=== PATIENT | female | born 1995 | race Caucasian/White ===

== ENCOUNTER 2021-02-14 11:52 | Emergency (ER) | payer OTHER, SELFPAY ==
[2021-02-14 12:00] VITALS: BP 132/95; PULSE 110; RESP 14; TEMP 36.7; O2SAT 99
--- NOTE | 2021-02-14 12:15 | ED.URI ---
HPI - URI/Sore Throat General Chief Complaint: Upper Respiratory Infection Stated Complaint: sore throat Time Seen by Provider: 02/14/21 12:15 Source: patient Mode of arrival: ambulatory History of Present Illness HPI Narrative: Patient presents with sore throat. Patient states her left side of her throat is worse than her right. Patient states it feels like she is swallowing glass. Patient denies any drooling, no shortness of breath no chest pain. MD elicited complaint: sore throat Able to tolerate fluids by mouth: Yes Related Data Allergies Allergy/AdvReac Type Severity Reaction Status Date / Time No Known Allergies Allergy Verified 02/14/21 12:08 Review of Systems Review of Systems: CONSTITUTIONAL: Denies fever, chills, or sweats. EYES: Denies visual changes, redness, or discharge. ENT: Denies rhinorrhea, congestion, sore throat, or otalgia. CARDIOVASCULAR: Denies chest pain, palpitations, or edema. RESPIRATORY: Denies cough or dyspnea. GASTROINTESTINAL: Denies abdominal pain, nausea, vomiting, or diarrhea. GENITOURINARY: Denies dysuria or hematuria. SKIN: Denies rash or itching. MUSCULOSKELETAL: Denies back pain, joint pain, or myalgia. NEUROLOGIC: Denies headache, numbness, or weakness. PSYCHIATRIC: Denies anxiety or depression. PMFSH Comments At time of signature, agree with nursing past medical, surgical, social and family history. There is no relevant family history pertinent to the presenting complaint Exam Narrative: GENERAL: Well-appearing, well-nourished, and in no acute distress. HEAD: Normocephalic, atraumatic. EYES: PERRLA and EOMI. ENT: Nares clear, no rhinorrhea or epistaxis. Mucous membranes moist. Pharyngeal erythremia moderate to left side mild to right no exudate no trismus no drooling able to open mouth fully NECK: Supple. CHEST: Clear to auscultation. No respiratory distress. HEART: Regular rate and rhythm. No murmur heard. Normal peripheral pulses. ABDOMEN: Soft, nontender, nondistended, normal active bowel sounds. EXTREMITIES: Normal range of motion. No edema. SKIN: Warm, dry, no rash. NEURO: No focal deficits. Alert and oriented x3. Alderson Coma Scale Eye Opening: Spontaneous 4 Alderson Coma Scale Motor: Obeys Commands 6 Alderson Coma Scale Verbal: Oriented 5 Jennifer Coma Scale Total 15 Course Vital Signs Vital signs: Vital Signs Temperature 36.7 C 02/14/21 12:00 Pulse Rate 110 H 02/14/21 12:00 Respiratory Rate 14 02/14/21 12:00 Blood Pressure 132/95 H 02/14/21 12:00 Pulse Oximetry 99 02/14/21 12:00 Temperature 36.7 C 02/14/21 12:00 Pulse Rate 110 H 02/14/21 12:00 Respiratory Rate 14 02/14/21 12:00 Blood Pressure 132/95 H 02/14/21 12:00 Pulse Oximetry 99 02/14/21 12:00 Addressed elevated BP today. Today's blood pressure higher than recommended range. 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 Currently patient denies headache, dizziness, vision changes, CP or shortness of breath. MDM - URI/Sore Throat Differential Diagnosis Differential diagnosis: Likely upper respiratory infection, croup, otitis media, sinusitis, viral infection, bronchitis, influenza and pharyngitis Lab Data Labs: Strep Screen Presumptive Negative *(Reference Range: Negative)* Critical Care Time Critical Care Time Critical Care Time: No Discharge Plan Discharge Clinical Impression: Pharyngitis, Tonsillar erythema Patient Disposition: Home, Self-Care Condition: Stable Instructions: Antibiotic Form, Tonsillitis (ED) Additional Instructions: Increase fluids especially juices and water [id number] cough and cold medicine of your choice for your symptoms Salt water gargles, throat lozenges or throat sprays as desired change toothbrush in 3-5 days Antibiotic as directed--finished the medication It may take the antibiotic 2-3 days to c
== END 2021-02-14 12:24 | disposition home or self-care (01) ==
PROVIDERS: Emergency Provider Nurse Practitioner Family
DX: J02.9 Acute pharyngitis, unspecified (principal); J35.9 Chronic disease of tonsils and adenoids, unspecified
CPT/HCPCS: 87081; 87880; 99203; G0463

== ENCOUNTER 2021-12-15 20:47 | Inpatient (IN) | payer OTHER, SELFPAY ==
--- NOTE | ~2021-12-15 | CT_ITS ---
EXAMINATION: CT brain wo con INDICATION: Hallucinations COMPARISON: 11/13/2011 TECHNIQUE: Standard unenhanced head CT. The dose-length product (DLP) was 605.33 mGy-cm. The mA was a djusted according to patient size. Iterative reconstruction technique was employed. FINDINGS: There is no intracranial hemorrhage, acute infarction, or abnormal mass lesion. The ventric les are normal. There is no abnormal mass effect or midline shift. The valadez-white matter differentiat ion is normal. The basal cisterns are patent. The orbits are normal. The paranasal sinuses, mastoids and calvarium are normal. IMPRESSION: 1. No acute intracranial abnormality. Reviewed, dictated and finalized at location B.
--- NOTE | ~2021-12-15 | US_ITS ---
EXAMINATION: US abdomen limited DATE: 12/17/2021 09:00 INDICATION: Right upper quadrant pain TECHNIQUE: Multiple grayscale and Doppler ultrasound images of the abdomen were obtained. COMPARISON: CT, 12/15/2021 FINDINGS: The head and body of the pancreas are normal. The pancreatic tail is obscured by bowel gas. The liver demonstrates increased echogenicity, heterogenous echotexture, and decreased through trans mission. No surface nodularity. Normal hepatopetal flow in the main portal vein. The gallbladder is n ormal with no abnormal wall thickening, pericholecystic fluid or stones. The normal common bile duct measures 6 mm. There was no sonographic Hutson sign although sensitivity can be diminished by pain me dication.. IMPRESSION: 1. Normal sonographic study of the gallbladder. Reviewed, dictated and finalized at location B.
--- NOTE | ~2021-12-15 | CT_ITS ---
EXAMINATION: CT abdomen pelvis w con DATE: 12/15/2021 22:11 INDICATION: Right upper quadrant abdominal pain. TECHNIQUE: Computed tomography (CT) of the abdomen and pelvis was performed with 100 mL Omnipaque 350 intravenous contrast. Automated exposure control and iterative reconstruction technique were employe d. The dose-length product was 195.60 mGy-cm. COMPARISON: None. FINDINGS: The visualized portions of the lung bases demonstrate mild atelectasis. No pleural effusion . The heart size is normal. No pericardial effusion. There is diffuse hepatic steatosis. The gallblad capo and spleen are normal. There is fat stranding around the pancreas, consistent with acute intersti tial pancreatitis. The adrenal glands and kidneys are normal. There are no dilated loops of bowel. Th e appendix is normal. There are no pathologically enlarged lymph nodes. There is no free intraperiton eal fluid. There is mild thoracolumbar spondylosis. IMPRESSION: 1. Acute interstitial pancreatitis. 2. Diffuse hepatic steatosis. Reviewed, dictated and finalized at location A.
[2021-12-15 20:50] VITALS: BP 127/89; PULSE 128; RESP 20; TEMP 36.8; O2SAT 100
--- NOTE | 2021-12-15 21:06 | ED.ABDPAIN ---
HPI - Abdominal Pain General Chief Complaint: Abdominal Pain Stated Complaint: abd pain Time Seen by Provider: 12/15/21 20:59 History of Present Illness HPI narrative: 25-year-old female history of anxiety and depression presented to the emergency room for complaints of right upper quadrant pain. Patient states that she was seen in [facility] last night and was scheduled for emergency cholecystectomy surgery this morning, when she had a panic attack and left. Patient states she went home and began drinking. Admits to at least a pint of hard alcohol prior to arrival. Patient is complaining of a fever, nausea and vomiting. Denies any diarrhea or constipation. Related Data Allergies Allergy/AdvReac Type Severity Reaction Status Date / Time No Known Allergies Allergy Verified 02/14/21 12:08 Review of Systems Review of Systems: CONSTITUTIONAL: Reports fevers EYES: Denies visual changes, redness, or discharge. ENT: Denies rhinorrhea, congestion, sore throat, or otalgia. CARDIOVASCULAR: Denies chest pain, palpitations, or edema. RESPIRATORY: Denies cough or dyspnea. GASTROINTESTINAL: Reports abdominal pain and nausea GENITOURINARY: Denies dysuria or hematuria. SKIN: Denies rash or itching. MUSCULOSKELETAL: Denies back pain, joint pain, or myalgia. NEUROLOGIC: Denies headache, numbness, dizziness, or weakness. PSYCHIATRIC: Denies anxiety or depression. Exam Narrative: GENERAL: Ill-appearing, well-nourished, no physical limitations, emotional distress. HEAD: Normocephalic, atraumatic. EYES: Conjunctivae normal, PERRLA and EOMI. CHEST: Clear to auscultation. No respiratory distress. No wheezes rales or rhonchi. No tenderness. HEART: Regular rate and rhythm. No murmur heard. Normal peripheral pulses. ABDOMEN: Soft, right upper quadrant tenderness,, nondistended, normal active bowel sounds. EXTREMITIES: Normal range of motion. No edema. No clubbing or cyanosis SKIN: Warm, dry, no rash. No noted wounds NEURO: No focal deficits. Alert and oriented x3. MAEW. CN's II-XI intact bilaterally, normal gait PSYCH: Cooperative. Tearful and anxious. Course Course Emergency Course: 2300: Discussed case with MD Griffiths, patient to be admitted to med surg with [facility] [place] for acute pancreatitis. Vital Signs Vital signs: Vital Signs Temperature 36.8 C 12/15/21 20:50 Pulse Rate 128 H 12/15/21 20:50 Respiratory Rate 20 12/15/21 20:50 Blood Pressure 127/89 12/15/21 20:50 Pulse Oximetry 100 12/15/21 20:50 Oxygen Delivery Room Air 12/15/21 20:50 Temperature 36.8 C 12/15/21 20:50 Pulse Rate 98 12/15/21 23:25 Respiratory Rate 16 12/15/21 23:25 Blood Pressure 145/102 H 12/15/21 23:25 Pulse Oximetry 100 12/15/21 23:25 Oxygen Delivery Room Air 12/15/21 20:50 MDM - Abdominal Pain Lab Data Result diagrams: 12/15/21 21:15 12/15/21 21:14 Labs: Lab Results 12/15/21 12/15/21 12/15/21 Range/Units 21:14 21:14 21:14 WBC (4.5-10.0) K/mm3 RBC (4.2-5.4) M/mm3 Hgb (12.0-15.0) g/dL Hct (37.0-47.0) % MCV (80-100) fl MCH (26-34) pg MCHC (32-36) g/dl RDW (11.5-14.5) % Plt Count (150-375) k/mm3 MPV (7.4-10.4) fl Immature Gran % (Auto) (0-0.5) % Neut % (Auto) (45.5-73.1) % Lymph % (Auto) (18.3-44.2) % [place] % (Auto) (2.6-8.5) % Eos % (Auto) (0-4.4) % Baso % (Auto) (0.2-1.2) % Lymph # (Auto) (0.9-3.2) K/mm3 [place] # (Auto) (0.1-0.6) K/mm3 Eos # (Auto) (0-0.3) K/mm3 Baso # (Auto) (0.0-0.1) K/mm3 Abs Immat Gran (auto) (0.00-0.031) K/mm3 Absolute Neuts (auto) (1.3-6.7) K/mm3 Absolute Nucleated RBC (0.0-0.012) K/mm3 Nucleated RBC % (0.0-0.2) % Sodium 137 (137-145) mmol/L Potassium 2.7 L* (3.4-5.0) mmol/L Chloride 95 L (98-107) mmol/L Carbon Dioxide 24 (22-30) mmol/L Anion Gap 18 H (8-16) mmol/L BUN 3 L (7-17) mg/dL Creatinine 0.40 L
[2021-12-15] MEDS: ONDANSETRON INJ 4 MG/2 ML VIAL IV PUSH (21:26)
[2021-12-15] MEDS: SODIUM CHLORIDE 0.9% IV 1,000 ML 999 ML IV CONT ×2 (21:27→23:02)
[2021-12-15 21:29] LABS: Basophils Percent Auto 0.4 % (0.2-1.2); Eosinophils Percent Auto 0.5 % (0-4.4); Hematocrit 28.5 % (37.0-47.0); Hemoglobin 9.7 g/dL (12.0-15.0); Immature Granulocyte Absolute 0.01 K/mm3 (0.00-0.031); Immature Granulocyte Percent A 0.1 % (0-0.5); Lymphocytes Absolute Auto 1.92 K/mm3 (0.9-3.2); Lymphocytes Percent Auto 26.3 % (18.3-44.2); Mean Corpuscular Hemoglobin 30.9 pg (26-34); Mean Corpuscular Volume 90.8 fl (80-100); Mean Platelet Volume 10.5 fl (7.4-10.4); Monocytes Absolute Auto 1.1 K/mm3 (0.1-0.6); Monocytes Percent Auto 14.5 % (2.6-8.5); Neutrophils Absolute Auto 4.3 K/mm3 (1.3-6.7); Neutrophils Percent Auto 58.2 % (45.5-73.1); Platelet Count Result 111 k/mm3 (150-375); Red Blood Count 3.14 M/mm3 (4.2-5.4); Red Cell Distribution Width 14.2 % (11.5-14.5); White Blood Count 7.3 K/mm3 (4.5-10.0)
[2021-12-15 21:29] LABS: Appearance Urine Clear (Clear); Bilirubin Urine Negative (Negative); Blood Urine 1+ (Negative); Color Urine Yellow (Yellow); Glucose Urine UA Negative (Negative); Ketones Urine Negative (Negative); Leukocyte Esterase Ur Negative LEU/UL (Negative); Nitrate Urine Negative (Negative); Protein Urine Negative (Negative); Urobilinogen Urine 0.2 mg/dL (<2.0); pH Urine 6.5 (5.0-9.0)
[2021-12-15 21:37] LABS: Mucus Urine Rare /lpf; RBC Urine 0-2 /hpf (0-2); Squamous Epithelial Cell Urine Rare /hpf (Few); WBC Urine 0-3 /hpf
[2021-12-15 21:38] LABS: Add Urine Microscopic? YES
[2021-12-15 21:38] LABS: Lactic Acid Reflex 3.6 mmol/L (0.7-2.0)
[2021-12-15 21:41] LABS: Ethanol 150 mg/dL (<10)
[2021-12-15 21:55] LABS: Alanine Aminotransferase 72 U/L (6-35); Albumin Level 4.6 g/dL (3.5-5.1); Alkaline Phosphatase 88 U/L (38-126); Anion Gap 18 mmol/L (8-16); Aspartate Amino Transferase 259 U/L (14-36); Bilirubin,Total 0.3 mg/dL (0.2-1.3); Blood Urea Nitrogen 3 mg/dL (7-17); Calcium 9.8 mg/dL (8.4-10.2); Carbon Dioxide 24 mmol/L (22-30); Chloride 95 mmol/L (98-107); Estimated CRCL calculation 133 ml/min; Estimated Glomerular Filt Rate > 60; Glucose 119 mg/dL (65-110); Potassium 2.7 mmol/L (3.4-5.0); Sodium 137 mmol/L (137-145)
--- NOTE | 2021-12-15 21:56 | ECG_ITS ---
Measurements Intervals [place] Rate: 90 P: 58 MO: 144 QRS: 63 QRSD: 89 T: 41 QT: 390 QTc: 479 Interpretive Statements SINUS RHYTHM NO PREVIOUS ECG AVAILABLE FOR COMPARISON Electronically Signed On 12-16-2021 15:05:44 CDT by Yoli Reed M.D.
[2021-12-15 22:10] LABS: Magnesium 1.6 mg/dL (1.6-2.3)
[2021-12-15 22:16] LABS: Lipase 826 U/L (23-300)
[2021-12-15] MEDS: POTASSIUM CHLORIDE 20 MEQ PACKET (FOR LIQUID) 40 MEQ PO (22:28)
[2021-12-15] MEDS: HYDROmorphone HCL INJ (*CRX) 1 MG/ML SYR 0.5 MG IV PUSH (22:59)
[2021-12-15 23:25] VITALS: BP 145/102; PULSE 98; RESP 16; O2SAT 100
[2021-12-15 23:47] VITALS: PULSE 91
--- NOTE | 2021-12-15 23:57 | ADMGEN ---
This patient, Elli Gu, was admitted to Medical Room 240-01 at 2340. Patient/family oriented to hospital policies and general routines including ID bracelet, bed and alarms, visiting hours, pain management, procedures, bathroom and other care routines, personal items, smoking policy, room service/diet, and visiting hours. Information on how to activate the Rapid Response Team has been discussed. Patient/Family are encouraged to report perceived risks to care and to ask questions if they do not understand what they are told or what they should do.
[2021-12-15 23:58] VITALS: BP 130/98
[2021-12-16] VITALS (9 sets, daily range): BP systolic 124–133; BP diastolic 96–98; PULSE 80–108; RESP 12–18; TEMP 36.2–36.7; O2SAT 100; BMI 18.9
[2021-12-16 00:26] LABS: Reflex Lactic Acid Yes or No Add Lactic
[2021-12-16] MEDS: SODIUM CHLORIDE 0.9% IV 1,000 ML 200 ML IV CONT ×5 (00:52→23:08)
[2021-12-16] MEDS: ONDANSETRON INJ 4 MG/2 ML VIAL IV PUSH ×4 (00:53→20:15)
[2021-12-16] MEDS: HYDROmorphone HCL INJ (*CRX) 1 MG/ML SYR IV PUSH ×6 (00:55→23:09)
[2021-12-16] MEDS: POTASSIUM CHLORIDE INJ 40 MEQ in SODIUM CHLORIDE 0.9% IV 500 ML 130 MEQ IVPB (00:56)
[2021-12-16] MEDS: THIAMINE HCL 200 MG/2 ML VIAL 100 MG IV PUSH ×2 (00:57→09:24)
[2021-12-16] MEDS: MAGNESIUM SULF 2 GM/WATER 50ML 2 GM/50 ML BAG IVPB (01:03)
[2021-12-16 01:04] LABS: Lactic Acid 1.9 mmol/L (0.7-2.0)
--- NOTE | 2021-12-16 01:09 | PM.IMHP ---
H&P: HPI History of Present Illness Date/Time: 12/16/21 01:09 Chief Complaint: Needs gallbladder removed Narrative: 25-year-old female with a past medical history of anxiety, depression, PTSD, and chronic alcoholism with prior episodes of alcoholic pancreatitis who presented to the ER from home via private vehicle due to abdominal pain and reporting that she needed her gallbladder out. The patient has evidently had multiple admissions to [facility] in the past and was just admitted on the through the for acute cholecystitis. The patient was actually in the preop area at [facility] when she had an anxiety attack in stated that 1 of the preop nurses upset her so she left the hospital AMA. She promptly went home and began drinking more vodka. She admits to drinking a pt a day although the description of her usage suggest she may drink more. She reports that she can drink her alcohol without difficulty. But she has been having difficulty even swallowing any solid food for the last several months. She reports that she cannot get it past the back of her throat. She reports that her throat often feels sore and that she has frequent episodes of vomiting. It sounds as if she has been having intermittent episodes of blood-streaked in Mrs. intermittently. It sounds like between those episodes of blood-streaked emesis she is having occasional episodes of larger amount of hematemesis of what she describes is a wine colored emesis. She has not had any such emesis for the last couple of days. She does have frequent heartburn symptoms. She reports that she usually has pancreatitis pains in her epigastric area but currently is having pain in her right upper quadrant. Again her epigastric pain has been intermittently ongoing since July. She admits to weight loss but cannot quantify her weight loss. She reports that she has been having intermittent fevers since July with temperatures up to 101. She cannot give me a frequency or precipitating factor for the fevers. She reports that she chronically feels chilled. She reports she feels extremely anxious. She was being treated for alcohol withdrawal while at [facility]. She states that despite being treated for the alcohol withdrawal that she was hallucinating about male face years being in her room. At the time my evaluation she reported seeing wavy forms in front of her and stated that the number of male failed years standing in the room had multiplied while I was in there. The patient had difficulty naming the hospital but was aware that she was in the hospital. She was oriented to the month year and the name of the current president. She does not have any obvious tremors, sweating or tachycardia. Denies any chest pain or shortness of breath illicit associated with anxiety. She has not had any cough or congestion. She denies any auditory hallucinations. She is having a mild headache. She reports that her abdominal pain is a right upper quadrant a and is burning in nature. She reports that when she starts vomiting that her abdominal pain is more of a throbbing sensation but she has not vomited since she arrived to the hospital. She does have a history of chronic constipation but reports that she had some diarrhea couple days ago because they gave her laxatives at the hospital. She has lost 2 jobs and has not worked since at least July. she has now had moved back in with her grandmother and grandfather for support. The entirety of the patient's history was obtained from patient report and ER reports. The patient is a difficult historian. It was difficult to get the patient to focus and provide a cohesive history of recent events. Patient was easily distracted. She was tearful at times. She denies any suicidal or homicidal ideation. She has been hospitalized in the past for depression. She denies prior suicide attempt Review of Systems Review of Systems: 12 systems were reviewed with jacklyn
[2021-12-16] MEDS: diazePAM INJ (*CRX) 10 MG/2 ML SYRINGE 2.5 MG IV PUSH ×3 (02:10→18:06)
[2021-12-16 05:15] LABS: Basophils Percent Auto 0.6 % (0.2-1.2); Eosinophils Absolute Auto 0.1 K/mm3 (0-0.3); Eosinophils Percent Auto 2.2 % (0-4.4); Hematocrit 27.3 % (37.0-47.0); Immature Granulocyte Absolute 0.02 K/mm3 (0.00-0.031); Immature Granulocyte Percent A 0.3 % (0-0.5); Lymphocytes Absolute Auto 2.84 K/mm3 (0.9-3.2); Mean Corpuscular Hemoglobin 30.4 pg (26-34); Mean Corpuscular Volume 92.2 fl (80-100); Mean Platelet Volume 10.9 fl (7.4-10.4); Monocytes Absolute Auto 0.7 K/mm3 (0.1-0.6); Neutrophils Absolute Auto 2.7 K/mm3 (1.3-6.7); Neutrophils Percent Auto 41.9 % (45.5-73.1); Platelet Count Result 109 k/mm3 (150-375); Red Blood Count 2.96 M/mm3 (4.2-5.4); Red Cell Distribution Width 14.1 % (11.5-14.5); White Blood Count 6.5 K/mm3 (4.5-10.0)
[2021-12-16 05:27] LABS: Alanine Aminotransferase 67 U/L (6-35); Albumin Level 3.6 g/dL (3.5-5.1); Alkaline Phosphatase 74 U/L (38-126); Anion Gap 8 mmol/L (8-16); Aspartate Amino Transferase 178 U/L (14-36); Bilirubin,Total 0.3 mg/dL (0.2-1.3); CRP 2.3 mg/dL (<1.0); Calcium 7.7 mg/dL (8.4-10.2); Carbon Dioxide 26 mmol/L (22-30); Chloride 107 mmol/L (98-107); Estimated CRCL calculation 136 ml/min; Estimated Glomerular Filt Rate > 60; Glucose 92 mg/dL (65-110); Lipase 1343 U/L (23-300); Magnesium 2.3 mg/dL (1.6-2.3); Phosphorus 3.3 mg/dL (2.5-4.5); Potassium 3.9 mmol/L (3.4-5.0); Sodium 141 mmol/L (137-145)
[2021-12-16 05:42] LABS: Blood Urea Nitrogen < 2 mg/dL (7-17)
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
[2021-12-16] MEDS: FOLIC ACID 1 MG/0.2 ML INJ IV PUSH (08:18)
[2021-12-16] MEDS: PANTOPRAZOLE SODIUM IV 40 MG VIAL IV PUSH ×2 (08:18→20:16)
--- NOTE | 2021-12-16 08:29 | PC.NURSE ---
called pharmacy for 09 thiamine, will give when received
--- NOTE | 2021-12-16 12:35 | PM.CNGS ---
Assessment and Plan Assessment and plan (1) Acute alcoholic pancreatitis: Qualifiers: Acute pancreatitis complication: no infection or necrosis Qualified Code(s): K85.20 - Alcohol induced acute pancreatitis without necrosis or infection Code(s): K85.20 - Alcohol induced acute pancreatitis without necrosis or infection Status: Acute Assessment and Plan: this is evidenced by her history and blood levels of alcohol being elevated. Her CT scan and chemistry show pancreatitis. Patient complains of lower abdominal pain which has been chronic for 3 months. No etiology for this on her CT scan. Doubt this is a reliable history. (2) Hematemesis: Qualifiers: Nausea presence: with nausea Qualified Code(s): K92.0 - Hematemesis Code(s): K92.0 - Hematemesis Status: Acute Assessment and Plan: Anemic. Dr. Sanchez is seeing and plans EGD tomorrow. (3) Abnormal findings on diagnostic imaging of gallbladder: Code(s): R93.2 - Abnormal findings on diagnostic imaging of liver and biliary tract Status: Acute Assessment and Plan: Gallbladder sludge noted on CT scan but no signs of inflammation. Will get ultrasound of the gallbladder tomorrow. Await records from [facility]. Will follow along with you. I think it is unlikely that gallbladder disease is contributing to her pancreatitis. Patient's history is much different with me than it has been with previous examiners in that all her complaints are in the lower abdomen particularly right lower quadrant not epigastric or right upper quadrant. Intoxication and alcohol withdrawal most likely the cause of her change in history. History of Present Illness Consult details Consult date: 12/16/21 Reason for consult: abdominal pain Requesting physician: Carrie Griffiths, Narrative: Patient is a 25-year-old woman with a history of alcoholism, panic attacks, PTSD who came to the emergency room last night with complaints of right upper quadrant pain. She told providers she needed her gallbladder out. Records from the emergency room as well as her H&P were reviewed. Those records indicate she was at [facility] and left due to a panic attack Friday morning, 12/15/2021. She also described right upper quadrant abdominal pain. It my interview this morning, the patient describes right lower quadrant abdominal pain but also pain in the suprapubic area and left lower quadrant. She did have emesis and some hematemesis. She says this lower abdominal pain has been there for 3 months. The pain is there when she drinks alcohol but it is also there when she does not. Patient also tells me that she was scheduled for surgery at [facility] on and left AMA. She does describe resuming heavy alcohol intake with vodka prior to coming to our emergency room. She had a CT scan in the emergency room which showed some sludge in the gallbladder but no thickened wall or pericholecystic fluid. There was some enhancement of the pancreas and her lipase was elevated consistent with pancreatitis. She is seen now in consultation regarding possible cholecystitis and inherent biliary pancreatitis. She has only had 1 emesis since being admitted to the hospital. She still has the lower abdominal pain as before. Review of Systems Review of Systems: All systems reviewed & are unremarkable except as noted in HPI and below ( HPI and those items noted below) Constitutional: Constitutional: Reports as per HPI, Denies chills and Denies fever(s) Cardiovascular: Cardiovascular: Denies chest pain, Denies diaphoresis, Denies dyspnea and Denies paroxysmal nocturnal dyspnea Respiratory: Respiratory: Denies chest congestion, Denies cough and Denies dyspnea Gastrointestinal: Gastrointestinal: Reports as per HPI, Reports abdominal pain, Reports vomiting and Reports hematemesis Integumentary/Breasts: Skin/Breast: Denies lesions and Denies rash
[2021-12-16] MEDS: diazePAM INJ (*CRX) 10 MG/2 ML SYRINGE 5 MG IV PUSH (21:54)
[2021-12-17] VITALS (17 sets, daily range): BP systolic 112–136; BP diastolic 70–100; PULSE 74–118; RESP 14–22; TEMP 36.1–36.6; O2SAT 100
[2021-12-17] MEDS: SODIUM CHLORIDE 0.9% IV 1,000 ML 200 ML IV CONT ×4 (04:18→21:31)
[2021-12-17] MEDS: diazePAM INJ (*CRX) 10 MG/2 ML SYRINGE 5 MG IV PUSH ×3 (04:20→20:10)
[2021-12-17] MEDS: HYDROmorphone HCL INJ (*CRX) 1 MG/ML SYR IV PUSH ×5 (05:35→22:35)
--- NOTE | 2021-12-17 07:25 | PM.IMPN ---
Progress Note: A&P Assessment and Plan (1) Acute alcoholic pancreatitis: Qualifiers: Acute pancreatitis complication: no infection or necrosis Qualified Code(s): K85.20 - Alcohol induced acute pancreatitis without necrosis or infection Code(s): K85.20 - Alcohol induced acute pancreatitis without necrosis or infection Status: Acute Assessment and Plan: NPO, IVF, improving (2) Alcohol withdrawal syndrome with complication: Code(s): F10.939 - Alcohol use, unspecified with withdrawal, unspecified Status: Acute Assessment and Plan: Librium 25 mg Q6h for alcohol withdrawal, CIWAs consistently greater than 15 today, will get these down to less than 8 Valium as needed for CIWA >8 (3) Acute alcohol intoxication delirium with moderate or severe use disorder: Code(s): F10.221 - Alcohol dependence with intoxication delirium Status: Acute Assessment and Plan: Care coordination to assist at finding a safe discharge plan for the patient (4) Alcoholic hepatitis: Qualifiers: Ascites presence: without ascites Qualified Code(s): K70.10 - Alcoholic hepatitis without ascites Code(s): K70.10 - Alcoholic hepatitis without ascites Status: Acute Assessment and Plan: Alcohohol cessation discussed and emphasized (5) Lactic acidosis: Code(s): E87.2 - Acidosis Status: Acute Assessment and Plan: Resolved (6) Hypokalemia: Code(s): E87.6 - Hypokalemia Status: Acute Assessment and Plan: Resolved, monitor (7) Hematemesis: Qualifiers: Nausea presence: with nausea Qualified Code(s): K92.0 - Hematemesis Code(s): K92.0 - Hematemesis Status: Acute Assessment and Plan: PPI b.i.d., appreciate GI consultation (8) Abnormal findings on diagnostic imaging of gallbladder: Code(s): R93.2 - Abnormal findings on diagnostic imaging of liver and biliary tract Status: Acute Assessment and Plan: General surgery consultation placed, right upper quadrant ultrasound essentially benign, defer further management to surgery team (9) Anemia: Qualifiers: Anemia type: unspecified type Qualified Code(s): D64.9 - Anemia, unspecified Code(s): D64.9 - Anemia, unspecified Status: Acute Assessment and Plan: Hemoglobin stable, 9.2 today, will need anemia workup by GI outpatient versus inpatient Plan DVT prophylaxis with SCDs GI prophylaxis with PPI b.i.d. Code status full code Subjective Date/time seen: 12/17/21 07:25 Interval history: Patient still with severe abdominal pain, somewhat improved with Dilaudid. She is also complaining of visual and auditory hallucinations, progressively worsening over the last 2 weeks. She states they were present both with and without alcohol intake. No overnight events noted. No chest pain or shortness of breath. No nausea, vomiting or diarrhea. No fevers or chills. Review of Systems Review of Systems: 12 point review of systems was assessed and was negative except as noted in the HPI Exam Narrative: General: No acute distress, alert and oriented per baseline HEENT: Atraumatic, normocephalic, mucous membranes moist CV: Regular rate and rhythm, S1, S2 Lungs: Clear to auscultation bilaterally, no rales or crackles noted, no wheezes, good air entry Abdomen: Soft, nontender, nondistended Extremities: Normal to inspection Skin: No rashes noted, no lesions or wounds seen Psych: Euthymic, normal affect Neuro: Cranial nerves 2-12 grossly intact, strength +5/5 upper and lower extremities bilaterally, significant resting tremor noted throughout Objective Data Vital Signs Vital Signs: Vital Signs - 24 hr 12/16/21 08:00 12/16/21 08:15 12/16/21 08:00 Temperature Pulse Rate 86 Pulse Rate [Radial Palpation] 88 Respiratory Rate Blood Pressure Pulse Oximetry Oxygen De
[2021-12-17] MEDS: PANTOPRAZOLE SODIUM IV 40 MG VIAL IV PUSH ×2 (08:13→20:15)
[2021-12-17] MEDS: THIAMINE HCL 200 MG/2 ML VIAL 100 MG IV PUSH (08:13)
[2021-12-17] MEDS: FOLIC ACID 1 MG/0.2 ML INJ IV PUSH (08:13)
[2021-12-17] MEDS: LACTATED RINGERS 1,000 ML 150 ML IV CONT (09:28)
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
[2021-12-17] MEDS: ONDANSETRON INJ 4 MG/2 ML VIAL IV PUSH ×2 (11:16→15:35)
[2021-12-17 12:21] LABS: Basophils Percent Auto 0.7 % (0.2-1.2); Eosinophils Absolute Auto 0.2 K/mm3 (0-0.3); Eosinophils Percent Auto 4.7 % (0-4.4); Hematocrit 28.3 % (37.0-47.0); Hemoglobin 9.2 g/dL (12.0-15.0); Immature Granulocyte Absolute 0.01 K/mm3 (0.00-0.031); Immature Granulocyte Percent A 0.2 % (0-0.5); Lymphocytes Absolute Auto 1.48 K/mm3 (0.9-3.2); Lymphocytes Percent Auto 36.5 % (18.3-44.2); Mean Corpuscular HGB Conc 32.5 g/dl (32-36); Mean Corpuscular Hemoglobin 30.9 pg (26-34); Mean Platelet Volume 9.4 fl (7.4-10.4); Monocytes Absolute Auto 0.5 K/mm3 (0.1-0.6); Monocytes Percent Auto 12.8 % (2.6-8.5); Neutrophils Absolute Auto 1.8 K/mm3 (1.3-6.7); Neutrophils Percent Auto 45.1 % (45.5-73.1); Platelet Count Result 127 k/mm3 (150-375); Red Blood Count 2.98 M/mm3 (4.2-5.4); Red Cell Distribution Width 14.4 % (11.5-14.5); White Blood Count 4.1 K/mm3 (4.5-10.0)
[2021-12-17 12:34] LABS: Lactic Acid Reflex 0.5 mmol/L (0.7-2.0)
[2021-12-17 12:35] LABS: Alanine Aminotransferase 74 U/L (6-35); Albumin Level 3.5 g/dL (3.5-5.1); Alkaline Phosphatase 69 U/L (38-126); Anion Gap 13 mmol/L (8-16); Aspartate Amino Transferase 178 U/L (14-36); Bilirubin,Total 0.3 mg/dL (0.2-1.3); Calcium 8.1 mg/dL (8.4-10.2); Carbon Dioxide 22 mmol/L (22-30); Chloride 99 mmol/L (98-107); Estimated CRCL calculation 136 ml/min; Estimated Glomerular Filt Rate > 60; Glucose 82 mg/dL (65-110); Potassium 3.1 mmol/L (3.4-5.0); Sodium 134 mmol/L (137-145)
[2021-12-17 12:41] LABS: Hemoglobin A1C 4.7 % (<5.7)
[2021-12-17 12:41] LABS: Blood Urea Nitrogen < 2 mg/dL (7-17)
[2021-12-17 12:44] LABS: Cholesterol 208 mg/dL (0-200); HDL Direct 63 mg/dL; Triglycerides 163 mg/dL (<150)
[2021-12-17 12:47] LABS: CRP 1.5 mg/dL (<1.0)
[2021-12-17 12:55] LABS: LDL Cholesterol Direct 88 mg/dL
[2021-12-17 13:03] LABS: Procalcitonin 0.1 ng/mL
--- NOTE | 2021-12-17 15:06 | PM.PNGS ---
Progress Note: A&P Assessment and Plan (1) Acute alcoholic pancreatitis: Qualifiers: Acute pancreatitis complication: no infection or necrosis Qualified Code(s): K85.20 - Alcohol induced acute pancreatitis without necrosis or infection Code(s): K85.20 - Alcohol induced acute pancreatitis without necrosis or infection Status: Acute Assessment and Plan: RUQ ultrasound showed a normal gallbladder with no stones or sludge. It appears her pancreatitis is most likely caused by alcohol. Would continue with medical management and strongly recommend alcohol cessation. We would not recommend a cholecystectomy at this time. Will sign off and please let us know if there are any surgical questions or concerns in the future. (2) Hematemesis: Qualifiers: Nausea presence: with nausea Qualified Code(s): K92.0 - Hematemesis Code(s): K92.0 - Hematemesis Status: Acute Plan I have discussed the patient's case and plan of care with Dr. Chamorro. Subjective Subjective Date/Time Seen: 12/17/21 15:06 Patient reports: still having pain (lower abdominal pain) and nausea Interval history: Patient seen and examined. Reports having about the same lower abdominal pain and nausea as she was having yesterday. Also reporting hallucinations and malaise. No other complaints at this time. Review of Systems Review of Systems: All systems reviewed & are unremarkable except as noted in HPI and below Exam Const: General: no acute distress and awake Nutritional Appearance: thin GI: Inspection: non-distended GI Palp: Yes Soft to palpation, Yes Tenderness to palpation present (GI) (diffusely tender but worse in lower abdomen) and No Guarding due to palpation present (GI) Auscultation: Hypoactive bowel sounds present Psych: Attitude: cooperative Insight: Limited insight present (Psych) Objective Data Vital Signs Vital Signs: Vital Signs - 24 hr 12/16/21 16:00 12/16/21 16:00 12/16/21 19:45 Temperature 97.9 F Pulse Rate 85 104 H Pulse Rate [Radial Palpation] 80 Respiratory Rate 16 Blood Pressure 133/96 H Pulse Oximetry 100 Oxygen Delivery 12/17/21 00:00 12/16/21 20:00 12/17/21 00:00 Temperature Pulse Rate 92 77 Pulse Rate [Radial Palpation] 74 Respiratory Rate Blood Pressure Pulse Oximetry Oxygen Delivery 12/17/21 04:00 12/17/21 05:06 12/17/21 08:20 Temperature 97.7 F Pulse Rate 82 97 Pulse Rate [Radial Palpation] 118 H Respiratory Rate 14 Blood Pressure 131/70 Pulse Oximetry 100 Oxygen Delivery 12/17/21 09:26 12/17/21 08:00 12/17/21 08:20 Temperature 97 F L Pulse Rate 81 85 Pulse Rate [Radial Palpation] Respiratory Rate 18 Blood Pressure 130/98 H Pulse Oximetry 100 Oxygen Delivery Room Air Room Air 12/17/21 10:40 12/17/21 10:50 12/17/21 11:00 Temperature Pulse Rate 81 96 86 Pulse Rate [Radial Palpation] Respiratory Rate 22 H 20 20 Blood Pressure 112/77 113/81 132/100 H Pulse Oximetry 100 100 100 Oxygen Delivery Room Air Room Air Room Air 12/17/21 12:45 12/17/21 12:00 12/17/21 13:10 Temperature 97.9 F Pulse Rate 79 94 Pulse Rate [Radial Palpation] 86 Respiratory Rate 20 Blood Pressure 128/81 Pulse Oximetry 100 Oxygen Delivery Intake/Output Intake/Output: Intake & Output 12/14/21 12/15/21 12/16/21 12/17/21 23:59 23:59 23:59 23:59 Intake Total 1999 4570 2250 Output Total 1999 2700 Balance 1999 8217 -151 Meds/Results Medications: Active Medications Generic Name Dose Route Start Last Admin Trade Name Freq PRN Reason Stop Dose Admin Chlordiazepoxide HCl 25 mg 12/17/21 12:00 Chlordiazepoxide (*Crx) 25 Mg Capsule PO Q6HR [facility] Diazepam 5 mg 12/16/21 21:08 12/17/21 04:20 Diazepam Inj (*Crx) 10 Mg/2 Ml Syringe IV PUSH 5 mg Q4H PRN Administration CIWA score greater than 8 Folic Acid 1 mg 12/16/21 09:00 12/17/21 08:13 Folic
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
[2021-12-17] MEDS: chlordiazePOXIDE (*CRX) 25 MG CAPSULE PO ×2 (15:35→18:02)
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
[2021-12-18] VITALS (15 sets, daily range): BP systolic 113–129; BP diastolic 69–90; PULSE 72–105; RESP 16–18; TEMP 35.7–36.4; O2SAT 96–100
[2021-12-18] MEDS: chlordiazePOXIDE (*CRX) 25 MG CAPSULE PO ×2 (00:42→05:48)
[2021-12-18] MEDS: HYDROmorphone HCL INJ (*CRX) 1 MG/ML SYR IV PUSH ×4 (00:50→06:50)
[2021-12-18] MEDS: diazePAM INJ (*CRX) 10 MG/2 ML SYRINGE 5 MG IV PUSH ×2 (00:51→04:22)
[2021-12-18] MEDS: SODIUM CHLORIDE 0.9% IV 1,000 ML 200 ML IV CONT ×3 (02:45→19:03)
[2021-12-18] MEDS: ONDANSETRON INJ 4 MG/2 ML VIAL IV PUSH ×2 (02:51→14:58)
[2021-12-18 06:05] LABS: Basophils Percent Auto 0.5 % (0.2-1.2); Eosinophils Absolute Auto 0.2 K/mm3 (0-0.3); Eosinophils Percent Auto 4.1 % (0-4.4); Hematocrit 29.7 % (37.0-47.0); Hemoglobin 9.6 g/dL (12.0-15.0); Immature Granulocyte Absolute 0.02 K/mm3 (0.00-0.031); Immature Granulocyte Percent A 0.5 % (0-0.5); Lymphocytes Absolute Auto 1.74 K/mm3 (0.9-3.2); Lymphocytes Percent Auto 41.9 % (18.3-44.2); Mean Corpuscular HGB Conc 32.3 g/dl (32-36); Mean Corpuscular Hemoglobin 30.4 pg (26-34); Mean Platelet Volume 10.1 fl (7.4-10.4); Monocytes Absolute Auto 0.6 K/mm3 (0.1-0.6); Monocytes Percent Auto 14.5 % (2.6-8.5); Neutrophils Absolute Auto 1.6 K/mm3 (1.3-6.7); Neutrophils Percent Auto 38.5 % (45.5-73.1); Platelet Count Result 193 k/mm3 (150-375); Red Blood Count 3.16 M/mm3 (4.2-5.4); Red Cell Distribution Width 14.5 % (11.5-14.5); White Blood Count 4.2 K/mm3 (4.5-10.0)
[2021-12-18 06:27] LABS: Alanine Aminotransferase 73 U/L (6-35); Albumin Level 3.6 g/dL (3.5-5.1); Alkaline Phosphatase 69 U/L (38-126); Anion Gap 11 mmol/L (8-16); Aspartate Amino Transferase 119 U/L (14-36); Bilirubin,Total 0.3 mg/dL (0.2-1.3); Calcium 8.6 mg/dL (8.4-10.2); Carbon Dioxide 27 mmol/L (22-30); Chloride 98 mmol/L (98-107); Estimated CRCL calculation 136 ml/min; Estimated Glomerular Filt Rate > 60; Glucose 91 mg/dL (65-110); Potassium 3.1 mmol/L (3.4-5.0); Sodium 136 mmol/L (137-145)
--- NOTE | 2021-12-18 08:08 | PM.IMPN ---
Progress Note: A&P Assessment and Plan (1) Acute alcoholic pancreatitis: Qualifiers: Acute pancreatitis complication: no infection or necrosis Qualified Code(s): K85.20 - Alcohol induced acute pancreatitis without necrosis or infection Code(s): K85.20 - Alcohol induced acute pancreatitis without necrosis or infection Status: Acute Assessment and Plan: Advance diet to full liquids, IVF, improving (2) Alcohol withdrawal syndrome with complication: Code(s): F10.939 - Alcohol use, unspecified with withdrawal, unspecified Status: Acute Assessment and Plan: 12/17: Librium 25 mg Q6h for alcohol withdrawal, CIWAs consistently greater than 15 today, will get these down to less than 8 Valium as needed for CIWA >8 12/18: CIWAs consistently greater than 20, will increase Librium to 75 mg q.6 hours, Valium 10 mg IV q.4 hours as needed (3) Acute alcohol intoxication delirium with moderate or severe use disorder: Code(s): F10.221 - Alcohol dependence with intoxication delirium Status: Acute Assessment and Plan: Care coordination to assist at finding a safe discharge plan for the patient Receiving Librium 25 mg every 6 hours, Valium 5 mg IV every 4 hours, and Dilaudid 1 mg IV every 2 hours Last CIWA score was 20, patient still extremely uncomfortable and actively withdrawing, will increase Librium to 75 mg every 6 hours, Valium 10 mg IV every 4 hours as needed per CIWA and Dilaudid 1.5 mg IV every 2 hours (4) Alcoholic hepatitis: Qualifiers: Ascites presence: without ascites Qualified Code(s): K70.10 - Alcoholic hepatitis without ascites Code(s): K70.10 - Alcoholic hepatitis without ascites Status: Acute Assessment and Plan: Alcohol cessation discussed and emphasized, LFTs continued to trend down (5) Hypokalemia: Code(s): E87.6 - Hypokalemia Status: Acute Assessment and Plan: Replete and recheck (6) Abnormal findings on diagnostic imaging of gallbladder: Code(s): R93.2 - Abnormal findings on diagnostic imaging of liver and biliary tract Status: Acute Assessment and Plan: General surgery consultation placed, right upper quadrant ultrasound essentially benign, defer further management to surgery team Surgery team has signed off, no need to have gallbladder removed at this time (7) Anemia: Qualifiers: Anemia type: unspecified type Qualified Code(s): D64.9 - Anemia, unspecified Code(s): D64.9 - Anemia, unspecified Status: Acute Assessment and Plan: Hemoglobin stable, 9.2 today, will need anemia workup by GI outpatient versus inpatient (8) Reflux esophagitis: Code(s): K21.00 - Gastro-esophageal reflux disease with esophagitis, without bleeding Status: Acute Assessment and Plan: PPI BID, stop all alcohol use (9) Hiatal hernia: Code(s): K44.9 - Diaphragmatic hernia without obstruction or gangrene Status: Acute (10) Gastritis: Code(s): K29.70 - Gastritis, unspecified, without bleeding Status: Acute Assessment and Plan: Continue PPI BID (11) Hallucinations: Code(s): R44.3 - Hallucinations, unspecified Status: Acute Assessment and Plan: Continues to have auditory and visual hallucinations, neurology consult reviewed, psychiatry consult pending, suspect these are secondary to alcohol use, however, patient continues to have hallucinations over the last few weeks with and without drinking, strong family history of psychiatric conditions and appropriate age for a new onset underlying psychiatric disorder as well as strong underlying depression/anxiety/PTSD, uncontrolled with zoloft 100 mg Plan DVT prophylaxis with SCDs GI prophylaxis with PPI b.i.d. Code status full code Subjective Date/time seen: 12/18/21 08:08 Interval history: Patient feels a l
--- NOTE | 2021-12-18 08:10 | WPDANESPN ---
Anes - Prog Note Post-Op Date/Time: 12/18/21 08:10 Cardiovascular status: normal Respiratory status: normal Airway patency: baseline Mental status: baseline Post-Op hydration status: normal Vital Signs: Last Vital Signs Temp 35.7 C L 12/18/21 03:11 Pulse 83 12/18/21 07:56 Resp 18 12/18/21 03:11 BP 129/90 12/18/21 03:11 Pulse Ox 100 12/18/21 03:11 O2 Del Method Room Air 12/17/21 20:00 Pain Score (VAS): 05/07 I/O: Intake & Output 12/17/21 12/18/21 12/18/21 23:59 07:59 15:59 Intake Total 1320 1390 Output Total 1500 Balance 1320 -110 Laboratory Tests 12/18/21 05:12 12/18/21 05:12 12/17/21 12/17/21 12/17/21 12:11 12:11 12:11 WBC 4.1 L RBC 2.98 L Hgb 9.2 L Hct 28.3 L MCV 95.0 MCH 30.9 MCHC 32.5 RDW 14.4 Plt Count 127 L MPV 9.4 Immature Gran % (Auto) 0.2 Neut % (Auto) 45.1 L Lymph % (Auto) 36.5 [place] % (Auto) 12.8 H Eos % (Auto) 4.7 H Baso % (Auto) 0.7 Lymph # (Auto) 1.48 [place] # (Auto) 0.5 Eos # (Auto) 0.2 Baso # (Auto) 0.0 Abs Immat Gran (auto) 0.01 Absolute Neuts (auto) 1.8 Absolute Nucleated RBC 0.0 Nucleated RBC % 0.0 Sodium Potassium Chloride Carbon Dioxide Anion Gap BUN Creatinine Estim Creat Clear Calc Estimated GFR Glucose Hemoglobin A1c Lactic Acid 0.5 L Calcium Total Bilirubin AST ALT Alkaline Phosphatase C-Reactive Protein Total Protein Albumin Triglycerides Cholesterol LDL Cholesterol Direct HDL Direct Procalcitonin 0.1 12/17/21 12/17/21 12/17/21 12:11 12:11 12:12 WBC RBC Hgb Hct MCV MCH MCHC RDW Plt Count MPV Immature Gran % (Auto) Neut % (Auto) Lymph % (Auto) [place] % (Auto) Eos % (Auto) Baso % (Auto) Lymph # (Auto) [place] # (Auto) Eos # (Auto) Baso # (Auto) Abs Immat Gran (auto) Absolute Neuts (auto) Absolute Nucleated RBC Nucleated RBC % Sodium 134 L Potassium 3.1 L Chloride 99 Carbon Dioxide 22 Anion Gap 13 BUN < 2 L Creatinine 0.40 L Estim Creat Clear Calc 136 Estimated GFR > 60 Glucose 82 Hemoglobin A1c 4.7 Lactic Acid Calcium 8.1 L Total Bilirubin 0.3 AST 178 H ALT 74 H Alkaline Phosphatase 69 C-Reactive Protein Total Protein 6.0 L Albumin 3.5 Triglycerides 163 H Cholesterol 208 H LDL Cholesterol Direct 88 HDL Direct 63 Procalcitonin 12/17/21 12/18/21 12/18/21 12:12 05:12 05:12 WBC 4.2 L RBC 3.16 L Hgb 9.6 L Hct 29.7 L MCV 94.0 MCH 30.4 MCHC 32.3 RDW 14.5 Plt Count 193 D MPV 10.1 Immature Gran % (Auto) 0.5 Neut % (Auto) 38.5 L Lymph % (Auto) 41.9 [place] % (Auto) 14.5 H Eos % (Auto) 4.1 Baso % (Auto) 0.5 Lymph # (Auto) 1.74 [place] # (Auto) 0.6 Eos # (Auto) 0.2 Baso # (Auto) 0.0 Abs Immat Gran (auto) 0.02 Absolute Neuts (auto) 1.6 Absolute Nucleated RBC 0.0 Nucleated RBC % 0.0 Sodium 136 L Potassium 3.1 L Chloride 98 Carbon Dioxide 27 Anion Gap 11 BUN Pending Creatinine 0.40 L Estim Creat Clear Calc 136 Estimated GFR > 60 Glucose 91 Hemoglobin A1c Lactic Acid Calcium 8.6 Total Bilirubin 0.3 AST 119 H ALT 73 H Alkaline Phosphatase 69 C-Reactive Protein 1.5 H Total Protein 6.0 L Albumin 3.6 Triglycerides Cholesterol LDL Cholesterol Direct HDL Direct Procalcitonin Post-procedural complaints: none Patient Feedback: Patient satisfied with anesthetic care.
[2021-12-18] MEDS: diazePAM INJ (*CRX) 10 MG/2 ML SYRINGE IV PUSH ×2 (08:41→19:56)
[2021-12-18] MEDS: FOLIC ACID 1 MG/0.2 ML INJ IV PUSH (08:47)
[2021-12-18] MEDS: PANTOPRAZOLE SODIUM IV 40 MG VIAL IV PUSH ×2 (08:47→20:00)
[2021-12-18] MEDS: THIAMINE HCL 200 MG/2 ML VIAL 100 MG IV PUSH (08:47)
[2021-12-18] MEDS: POTASSIUM CHLORIDE 20 MEQ TABLET 40 MEQ PO (08:50)
[2021-12-18] MEDS: HYDROmorphone HCL INJ (*CRX) 1 MG/ML SYR 1.5 MG IV PUSH ×5 (09:20→23:15)
[2021-12-18 09:45] LABS: Blood Urea Nitrogen < 2 mg/dL (7-17)
[2021-12-18] MEDS: chlordiazePOXIDE (*CRX) 25 MG CAPSULE 75 MG PO ×3 (12:12→23:14)
--- NOTE | 2021-12-18 12:33 | WPDGIPROGNO ---
Progress Note: A&P Assessment and Plan (1) Acute alcoholic pancreatitis: Qualifiers: Acute pancreatitis complication: no infection or necrosis Qualified Code(s): K85.20 - Alcohol induced acute pancreatitis without necrosis or infection Code(s): K85.20 - Alcohol induced acute pancreatitis without necrosis or infection Status: Acute Assessment and Plan: CT scan showed Acute interstitial pancreatitis, diffuse hepatic steatosis. tolerating liquid diet pain med and antiemetics as needed (2) Reflux esophagitis: Code(s): K21.00 - Gastro-esophageal reflux disease with esophagitis, without bleeding Status: Acute Assessment and Plan: ppi daily (3) Hallucinations: Code(s): R44.3 - Hallucinations, unspecified Status: Acute Assessment and Plan: [facility] related neurology on board (4) Alcohol withdrawal syndrome with complication: Code(s): F10.939 - Alcohol use, unspecified with withdrawal, unspecified Status: Acute Assessment and Plan: [facility] protocol (5) Anemia: Qualifiers: Anemia type: unspecified type Qualified Code(s): D64.9 - Anemia, unspecified Code(s): D64.9 - Anemia, unspecified Status: Acute Assessment and Plan: stable Subjective Date/time seen: 12/18/21 12:33 Interval history: egd yesterday with mild esophagitis/gastritis without sign of bleeding. She is tolerating liquid diet, less hallucinations Review of Systems Review of Systems: All systems reviewed & are unremarkable except as noted in HPI and below Exam Narrative: General: No acute distress, alert and oriented per baseline Neck: supple HEENT: Atraumatic, normocephalic, mucous membranes moist CV: Regular rate and rhythm, S1, S2 Lungs: Clear to auscultation bilaterally, no rales or crackles noted, no wheezes, good air entry Abdomen: Soft, tender to palpation, no rebounding or guarding, negative Hutson sign Extremities: Normal to inspection Skin: No rashes noted, no lesions or wounds seen Psych: anxious Neuro: strength +5/5 upper and lower extremities bilaterally, significant resting tremor noted throughout Objective Data Vital Signs Vital Signs: Vital Signs - 24 hr 12/17/21 12:45 12/17/21 13:10 12/17/21 16:25 Temperature 97.9 F Pulse Rate 94 Pulse Rate [Monitor] Pulse Rate [Radial Palpation] 86 106 H Respiratory Rate 20 Blood Pressure 128/81 Pulse Oximetry 100 Oxygen Delivery 12/17/21 16:00 12/17/21 19:34 12/17/21 20:02 Temperature 96.9 F L Pulse Rate 85 86 Pulse Rate [Monitor] 84 Pulse Rate [Radial Palpation] Respiratory Rate 18 Blood Pressure 136/98 H Pulse Oximetry 100 Oxygen Delivery 12/17/21 20:00 12/17/21 20:00 12/18/21 00:00 Temperature Pulse Rate 89 89 Pulse Rate [Monitor] Pulse Rate [Radial Palpation] Respiratory Rate Blood Pressure Pulse Oximetry Oxygen Delivery Room Air 12/18/21 00:00 12/18/21 03:11 12/18/21 04:02 Temperature 96.2 F L Pulse Rate 84 Pulse Rate [Monitor] 105 H 80 Pulse Rate [Radial Palpation] Respiratory Rate 18 Blood Pressure 129/90 Pulse Oximetry 100 Oxygen Delivery 12/18/21 04:00 12/18/21 07:56 12/18/21 08:00 Temperature Pulse Rate 79 86 Pulse Rate [Monitor] 83 Pulse Rate [Radial Palpation] Respiratory Rate Blood Pressure Pulse Oximetry Oxygen Delivery 12/18/21 11:01 12/18/21 11:59 Temperature Pulse Rate 78 Pulse Rate [Monitor] 85 Pulse Rate [Radial Palpation] Respiratory Rate 16 Blood Pressure Pulse Oximetry 99 Oxygen Delivery Room Air Intake/Output Intake/Output: Intake & Output 12/15/21 12/16/21 12/17/21 12/18/21 23:59 23:59 23:59 23:59 Intake Total 1999 4570 4570 2750 Output Total 1999 2700 1500 Balance 1999 9890 9380 1250 Meds/Results Medications: Active Medications Generic Name Dose Route Start Last Admin Tr
[2021-12-18] MEDS: oxyCODONE HCL (*CRX) 5 MG TAB IR 10 MG PO (20:12)
[2021-12-19] VITALS (11 sets, daily range): BP systolic 116–132; BP diastolic 50–88; PULSE 84–118; RESP 14–16; TEMP 36.4–36.5; O2SAT 99–100
[2021-12-19] MEDS: diazePAM INJ (*CRX) 10 MG/2 ML SYRINGE IV PUSH ×2 (00:07→04:20)
[2021-12-19] MEDS: SODIUM CHLORIDE 0.9% IV 1,000 ML 200 ML IV CONT ×3 (00:08→09:59)
[2021-12-19] MEDS: oxyCODONE HCL (*CRX) 5 MG TAB IR 10 MG PO ×3 (04:19→17:05)
[2021-12-19] MEDS: chlordiazePOXIDE (*CRX) 25 MG CAPSULE 75 MG PO ×4 (05:13→23:18)
[2021-12-19] MEDS: HYDROmorphone HCL INJ (*CRX) 1 MG/ML SYR 1.5 MG IV PUSH (05:28)
[2021-12-19 05:58] LABS: Hematocrit 27.2 % (37.0-47.0); Hemoglobin 8.7 g/dL (12.0-15.0); Mean Corpuscular Hemoglobin 30.4 pg (26-34); Mean Corpuscular Volume 95.1 fl (80-100); Mean Platelet Volume 9.7 fl (7.4-10.4); Platelet Count Result 247 k/mm3 (150-375); Red Blood Count 2.86 M/mm3 (4.2-5.4); Red Cell Distribution Width 14.7 % (11.5-14.5); White Blood Count 4.1 K/mm3 (4.5-10.0)
[2021-12-19 07:19] LABS: Atypical Lymphocytes Present; Basophils Absolute Manual 0.04 K/mm3 (0.0-0.1); Basophils Percent Manual 1 % (0-1); Eosinophils Absolute Manual 0.08 K/mm3 (0.02-0.5); Eosinophils Percent Manual 2 % (0-4); Lymphocytes Absolute Manual 1.59 K/mm3 (1.1-4.5); Monocytes Absolute Manual 0.45 K/mm3 (0.1-0.90); Monocytes Percent Manual 11 % (3-9); Neutrophils Percent Manual 47 % (46-73); Platelet Estimate Adequate (Adequate); Total Cells Counted 100
[2021-12-19] MEDS: PANTOPRAZOLE 40 MG TABLET PO (09:43)
[2021-12-19] MEDS: polyethylene glycoL 3350 17 GM POWD.PACK PO (09:43)
[2021-12-19] MEDS: THIAMINE HCL 200 MG/2 ML VIAL 100 MG IV PUSH (09:44)
[2021-12-19] MEDS: FOLIC ACID 1 MG/0.2 ML INJ IV PUSH (09:44)
[2021-12-19 10:30] LABS: Alanine Aminotransferase 51 U/L (6-35); Albumin Level 2.6 g/dL (3.5-5.1); Alkaline Phosphatase 53 U/L (38-126); Anion Gap 7 mmol/L (8-16); Aspartate Amino Transferase 56 U/L (14-36); Bilirubin,Total 0.2 mg/dL (0.2-1.3); Calcium 8.4 mg/dL (8.4-10.2); Carbon Dioxide 25 mmol/L (22-30); Chloride 102 mmol/L (98-107); Estimated CRCL calculation 112 ml/min; Estimated Glomerular Filt Rate > 60; Glucose 99 mg/dL (65-110); Potassium 3.3 mmol/L (3.4-5.0); Sodium 134 mmol/L (137-145)
[2021-12-19 11:03] LABS: Blood Urea Nitrogen < 2 mg/dL (7-17)
--- NOTE | 2021-12-19 11:24 | PM.IMPN ---
Progress Note: A&P Assessment and Plan (1) Acute alcoholic pancreatitis: Qualifiers: Acute pancreatitis complication: no infection or necrosis Qualified Code(s): K85.20 - Alcohol induced acute pancreatitis without necrosis or infection Code(s): K85.20 - Alcohol induced acute pancreatitis without necrosis or infection Status: Acute Assessment and Plan: -Patient reports second episode of pancreatitis, however did not fully recover after first event -CT scan showed Acute interstitial pancreatitis, diffuse hepatic steatosis -decrease dilaudid frequency, maintain oxycodone -maintain on full liquid diet, decrease IVF to 100 cc/hr (2) Reflux esophagitis: Code(s): K21.00 - Gastro-esophageal reflux disease with esophagitis, without bleeding Status: Acute Assessment and Plan: EGD 12/18 showing mild gastritis. Continue protonix (3) Hallucinations: Code(s): R44.3 - Hallucinations, unspecified Status: Acute Assessment and Plan: -Likely secondary to EtOH withdrawals, however suspect underlying depression/anxiety/PTSD contributing as well -EtOH withdrawal management as below. Will c/s psych for evaluation. Patient unable to take zoloft as outpatient due to persistent n/v from drinking (4) Alcohol withdrawal syndrome with complication: Code(s): F10.939 - Alcohol use, unspecified with withdrawal, unspecified Status: Acute Assessment and Plan: -h/o of 1 pint/day vodka for past 3 years. Also driven by underling PTSD and depression/anxiety -currently managed well with librium 75 q6h and valium 10 q4h. Patient reports worsening severity of symptoms by the time she is due for her next dose of valium. Will continue current regimen for now -patient provided resources to aide with alcohol cessation (5) Anemia: Qualifiers: Anemia type: unspecified type Qualified Code(s): D64.9 - Anemia, unspecified Code(s): D64.9 - Anemia, unspecified Status: Acute Assessment and Plan: -likley nutritional deficiency as well as iron deficiency secondary to regular heavy menstrual flows as reported by patient -check b12/folate, iron studies -thiamine/folic acid supplementation Subjective Date/time seen: 12/19/21 11:24 Chart reviewed, patient examined. Patient tolerating full liquid diet, however only eating small amounts. Still having persistent abdominal pain, however controlled with current pain regimen. Patient reports her audio/visual hallucinations are very much improved, however by the time her next dose of Valium is due she is having very strong hallucinations. Review of Systems Review of Systems: Ten point ROS reviewed, negative unless otherwise specified per subjective Exam Narrative: General: No acute distress, alert and oriented per baseline Neck: supple HEENT: Atraumatic, normocephalic, mucous membranes moist CV: Regular rate and rhythm, S1, S2 Lungs: Clear to auscultation bilaterally, no rales or crackles noted, no wheezes, good air entry Abdomen: Soft, tender to palpation, no rebounding or guarding, negative Hutson sign Extremities: Normal to inspection Skin: No rashes noted, no lesions or wounds seen Psych: anxious Neuro: strength +5/5 upper and lower extremities bilaterally, significant resting tremor noted throughout Objective Data Vital Signs Vital Signs: Vital Signs - 24 hr 12/18/21 11:59 12/18/21 12:00 12/18/21 14:24 Temperature 97.6 F Pulse Rate 83 72 Pulse Rate [Monitor] 85 Respiratory Rate 16 Blood Pressure 113/69 Pulse Oximetry 96 Oxygen Delivery 12/18/21 16:00 12/18/21 19:47 12/18/21 20:11 Temperature 96.6 F L Pulse Rate 101 H 92 Pulse Rate [Monitor] 99 Respiratory Rate 16 Blood Pressure 129/79 Pulse Oximetry 100 Oxygen Delivery 12/18/21 20:00 12/18/21 23:23 12/18/21 20:00 Temperature Pulse Rate Pulse Rate [Monitor] 99 102 H Respiratory Rate
[2021-12-19 12:00] LABS: Iron 58 ug/dL (37-170)
[2021-12-19 12:00] LABS: Magnesium 1.1 mg/dL (1.6-2.3)
[2021-12-19 12:09] LABS: Percent Iron Saturation 27 % (20-50)
[2021-12-19 13:09] LABS: Folic Acid > 20.0 ng/mL (2.76->20)
[2021-12-19] MEDS: POTASSIUM CHLORIDE 20 MEQ PACKET (FOR LIQUID) 40 MEQ PO (13:48)
--- NOTE | 2021-12-19 13:48 | WPDGIPROGNO ---
Progress Note: A&P Assessment and Plan (1) Acute alcoholic pancreatitis: Qualifiers: Acute pancreatitis complication: no infection or necrosis Qualified Code(s): K85.20 - Alcohol induced acute pancreatitis without necrosis or infection Code(s): K85.20 - Alcohol induced acute pancreatitis without necrosis or infection Status: Acute Assessment and Plan: CT scan showed Acute interstitial pancreatitis, diffuse hepatic steatosis. on liquid diet for now pain med and antiemetics as needed (2) Reflux esophagitis: Code(s): K21.00 - Gastro-esophageal reflux disease with esophagitis, without bleeding Status: Acute Assessment and Plan: ppi daily (3) Hallucinations: Code(s): R44.3 - Hallucinations, unspecified Status: Acute Assessment and Plan: [facility] related neurology on board (4) Alcohol withdrawal syndrome with complication: Code(s): F10.939 - Alcohol use, unspecified with withdrawal, unspecified Status: Acute Assessment and Plan: [facility] protocol (5) Anemia: Qualifiers: Anemia type: unspecified type Qualified Code(s): D64.9 - Anemia, unspecified Code(s): D64.9 - Anemia, unspecified Status: Acute Assessment and Plan: stable and no changes also malnutrition Subjective Date/time seen: 12/19/21 13:48 Interval history: no vomiting but still with nausea and similar abdominal pain, on liquid diet but still poor intake, + similar tremors Review of Systems Review of Systems: All systems reviewed & are unremarkable except as noted in HPI and below Exam Const: General: comfortable and no acute distress Other: chronically ill appearing HENMT: General nose exam: Normal nares present Eyes: General: appearance normal, both eyes and all related structures Neck: Neck: no JVD Resp: Auscultation: clear to auscultation bilaterally Cardio: Rate: regular rate Rhythm: regular rhythm GI: Inspection: non-distended GI Palp: Yes Soft to palpation and Yes Tenderness to palpation present (GI) (mild ttp in epigastric, no rebound) Auscultation: normal bowel sounds Skin: General skin exam: normal color Neuro: Speech: normal speech Other: + tremors Extrem: General: normal to inspection Psych: Affect: Anxious affect present Objective Data Vital Signs Vital Signs: Vital Signs - 24 hr 12/18/21 14:24 12/18/21 16:00 12/18/21 19:47 Temperature 97.6 F Pulse Rate 72 101 H Pulse Rate [Monitor] 99 Respiratory Rate 16 Blood Pressure 113/69 Pulse Oximetry 96 Oxygen Delivery 12/18/21 20:11 12/18/21 20:00 12/18/21 23:23 Temperature 96.6 F L Pulse Rate 92 Pulse Rate [Monitor] 99 102 H Respiratory Rate 16 Blood Pressure 129/79 Pulse Oximetry 100 Oxygen Delivery 12/18/21 20:00 12/19/21 00:00 12/18/21 20:00 Temperature Pulse Rate 88 Pulse Rate [Monitor] 102 H Respiratory Rate Blood Pressure Pulse Oximetry Oxygen Delivery Room Air 12/19/21 00:00 12/19/21 04:05 12/19/21 04:00 Temperature 97.6 F Pulse Rate 84 100 103 H Pulse Rate [Monitor] Respiratory Rate 16 Blood Pressure 116/82 Pulse Oximetry 100 Oxygen Delivery 12/19/21 04:00 12/19/21 07:55 12/19/21 08:20 Temperature Pulse Rate Pulse Rate [Monitor] 118 H 99 Respiratory Rate Blood Pressure Pulse Oximetry 99 Oxygen Delivery Room Air Intake/Output Intake/Output: Intake & Output 12/16/21 12/17/21 12/18/21 12/19/21 23:59 23:59 23:59 23:59 Intake Total 4570 4570 4410 3640 Output Total 1999 2700 2975 Balance 2570 1870 1435 3640 Meds/Results Medications: Active Medications Generic Name Dose Route Start Last Admin Trade Name Freq PRN Reason Stop Dose Admin Chlordiazepoxide HCl 75 mg 12/18/21 12:00 12/19/21 05:13 Chlordiazepoxide (*Crx) 25 Mg Capsule PO 75 mg Q6HR [place] Administration Diazepam 10 mg 12/18/21 08:17 08
[2021-12-19] MEDS: ONDANSETRON INJ 4 MG/2 ML VIAL IV PUSH (13:49)
[2021-12-19] MEDS: HYDROmorphone HCL INJ (*CRX) 1 MG/ML SYR IV PUSH ×2 (13:55→20:02)
[2021-12-19] MEDS: SODIUM CHLORIDE 0.9% IV 1,000 ML 100 ML IV CONT (17:11)
[2021-12-20] VITALS: PULSE 83
[2021-12-20] MEDS: oxyCODONE HCL (*CRX) 5 MG TAB IR 10 MG PO ×2 (00:53→09:34)
[2021-12-20 04:00] VITALS: PULSE 83
[2021-12-20 05:12] VITALS: BP 110/60; PULSE 67; RESP 16; TEMP 36.5; O2SAT 98
[2021-12-20] MEDS: chlordiazePOXIDE (*CRX) 25 MG CAPSULE 75 MG PO (05:31)
[2021-12-20 05:54] LABS: Basophils Percent Auto 0.7 % (0.2-1.2); Eosinophils Absolute Auto 0.1 K/mm3 (0-0.3); Eosinophils Percent Auto 1.7 % (0-4.4); Hematocrit 27.7 % (37.0-47.0); Hemoglobin 8.7 g/dL (12.0-15.0); Immature Granulocyte Absolute 0.01 K/mm3 (0.00-0.031); Immature Granulocyte Percent A 0.2 % (0-0.5); Lymphocytes Absolute Auto 2.12 K/mm3 (0.9-3.2); Lymphocytes Percent Auto 50.7 % (18.3-44.2); Mean Corpuscular HGB Conc 31.4 g/dl (32-36); Mean Corpuscular Hemoglobin 30.2 pg (26-34); Mean Corpuscular Volume 96.2 fl (80-100); Mean Platelet Volume 9.5 fl (7.4-10.4); Monocytes Absolute Auto 0.9 K/mm3 (0.1-0.6); Neutrophils Percent Auto 24.7 % (45.5-73.1); Platelet Count Result 331 k/mm3 (150-375); Red Blood Count 2.88 M/mm3 (4.2-5.4); Red Cell Distribution Width 15.3 % (11.5-14.5); White Blood Count 4.2 K/mm3 (4.5-10.0)
[2021-12-20 06:08] LABS: Alanine Aminotransferase 42 U/L (6-35); Albumin Level 2.6 g/dL (3.5-5.1); Alkaline Phosphatase 53 U/L (38-126); Anion Gap 7 mmol/L (8-16); Aspartate Amino Transferase 56 U/L (14-36); Bilirubin,Total 0.1 mg/dL (0.2-1.3); Carbon Dioxide 28 mmol/L (22-30); Chloride 101 mmol/L (98-107); Estimated CRCL calculation 112 ml/min; Estimated Glomerular Filt Rate > 60; Glucose 99 mg/dL (65-110); Potassium 3.3 mmol/L (3.4-5.0); Sodium 136 mmol/L (137-145)
[2021-12-20 06:23] LABS: Blood Urea Nitrogen < 2 mg/dL (7-17)
[2021-12-20 08:00] VITALS: PULSE 80
[2021-12-20] MEDS: PANTOPRAZOLE 40 MG TABLET PO (09:26)
[2021-12-20] MEDS: polyethylene glycoL 3350 17 GM POWD.PACK PO (09:26)
[2021-12-20] MEDS: FOLIC ACID 1 MG/0.2 ML INJ IV PUSH (09:26)
[2021-12-20] MEDS: THIAMINE HCL 200 MG/2 ML VIAL 100 MG IV PUSH (09:27)
[2021-12-20] MEDS: diazePAM INJ (*CRX) 10 MG/2 ML SYRINGE IV PUSH (09:43)
[2021-12-20] MEDS: ONDANSETRON INJ 4 MG/2 ML VIAL IV PUSH ×2 (09:43→13:48)
--- NOTE | 2021-12-20 11:45 | PM.IMPN ---
Progress Note: A&P Assessment and Plan (1) Acute alcoholic pancreatitis: Qualifiers: Acute pancreatitis complication: no infection or necrosis Qualified Code(s): K85.20 - Alcohol induced acute pancreatitis without necrosis or infection Code(s): K85.20 - Alcohol induced acute pancreatitis without necrosis or infection Status: Acute Assessment and Plan: -Patient reports second episode of pancreatitis, however did not fully recover after first event -CT scan showed Acute interstitial pancreatitis, diffuse hepatic steatosis -will stop dilaudid and add on p.r.n. morphine. Continue p.r.n. Oxy -start regular diet, stop IV fluids (2) Reflux esophagitis: Code(s): K21.00 - Gastro-esophageal reflux disease with esophagitis, without bleeding Status: Acute Assessment and Plan: EGD 12/18 showing mild gastritis. Continue protonix (3) Hallucinations: Code(s): R44.3 - Hallucinations, unspecified Status: Acute Assessment and Plan: -Likely secondary to EtOH withdrawals, however suspect underlying depression/anxiety/PTSD contributing as well -EtOH withdrawal management as below. Psych consulted, given patient's hallucinations have now resolved psychiatry to hold off on inpatient evaluation. (4) Alcohol withdrawal syndrome with complication: Code(s): F10.939 - Alcohol use, unspecified with withdrawal, unspecified Status: Acute Assessment and Plan: -h/o of 1 pint/day vodka for past 3 years. Also driven by underling PTSD and depression/anxiety -reports significant improvement in withdrawal symptoms. Decrease Librium to 50 Q 8 H with diazepam 5 q.6h p.r.n. Patient reports worsening severity of symptoms by the time she is due for her next dose of valium. Will continue current regimen for now -patient provided resources to aide with alcohol cessation (5) Anemia: Qualifiers: Anemia type: unspecified type Qualified Code(s): D64.9 - Anemia, unspecified Code(s): D64.9 - Anemia, unspecified Status: Acute Assessment and Plan: -likley nutritional deficiency as well as iron deficiency secondary to regular heavy menstrual flows as reported by patient -B12/folate normal iron studies pending -thiamine/folic acid supplementation Subjective Date/time seen: 12/20/21 11:45 Patient examined, chart reviewed. Patient reports significant improvement in abdominal pain, states she took the oxycodone on the morning and has not reported anything since. Is hungry and is ready to eat a regular diet. Reports significant improvement and alcohol withdrawal symptoms, minimal tremors this morning and none noted now. Hallucinations have resolved. Review of Systems Review of Systems: All systems reviewed & are unremarkable except as noted in HPI and below Exam Const: General: comfortable and no acute distress Other: chronically ill appearing HENMT: General nose exam: Normal nares present Eyes: General: appearance normal, both eyes and all related structures Neck: Neck: no JVD Resp: Auscultation: clear to auscultation bilaterally Cardio: Rate: regular rate Rhythm: regular rhythm GI: Inspection: non-distended GI Palp: Yes Soft to palpation Auscultation: normal bowel sounds Other: Nontender Skin: General skin exam: normal color Neuro: Speech: normal speech Other: No tremors Extrem: General: normal to inspection Psych: Affect: Anxious affect present Objective Data Vital Signs Vital Signs: Vital Signs - 24 hr 12/19/21 14:00 12/19/21 16:00 12/19/21 12:00 Temperature 97.7 F Pulse Rate 86 84 Pulse Rate [Monitor] 109 H Respiratory Rate 16 Blood Pressure 130/88 130/50 L Pulse Oximetry 100 Oxygen Delivery 12/19/21 16:00 12/19/21 20:00 12/19/21 20:16 Temperature 97.7 F Pulse Rate 108 H 109 H Pulse Rate [Monitor] Respiratory Rate 14 Blood Pressure 132/82 Pulse Oximetry 100 Oxygen Delivery
[2021-12-20 12:00] VITALS: PULSE 85
[2021-12-20] MEDS: chlordiazePOXIDE (*CRX) 25 MG CAPSULE 50 MG PO (13:48)
[2021-12-20 14:00] VITALS: BP 125/64; PULSE 65; RESP 16; TEMP 36.4; O2SAT 97
--- NOTE | 2021-12-20 15:38 | PM.DS ---
DS: Admitting Diagnosis Discharge Date 12/20/2021 Admitting Diagnosis Acute alcoholic pancreatitis DS: Summary Hospital Course Reason for hospitalization: Acute alcoholic pancreatitis Hospital Course: 24-year-old female past medical history of PTSD, anxiety/depression, ETOH abuse (1 pt of lawdkestelle a day 3 years) presented with acute abdominal pain on 12/17. CT imaging revealing for acute interstitial pancreatitis. Was started on aggressive IV fluids, pain medications, bowel rest. Patient also presented with withdrawals, was started on Librium and diazepam p.r.n.. Patient withdrawals were prolonged and complicated by extreme visual hallucinations, however eventually resolved. Patient was eventually advanced to a regular diet, IV fluids were stopped, and patient did not require any more pain meds. Patient was discharged in stable condition Time Spent with Patient Time attestation: Total time spent providing and/or coordinating discharge services: 30 minutes Exam Const: General: comfortable and no acute distress Other: chronically ill appearing HENMT: General nose exam: Normal nares present Eyes: General: appearance normal, both eyes and all related structures Neck: Neck: no JVD Resp: Auscultation: clear to auscultation bilaterally Cardio: Rate: regular rate Rhythm: regular rhythm GI: Inspection: non-distended GI Palp: Yes Soft to palpation Auscultation: normal bowel sounds Other: Nontender Skin: General skin exam: normal color Neuro: Speech: normal speech Other: No tremors Extrem: General: normal to inspection Psych: Affect: Anxious affect present DS: Data Data Completed and Pending Completed studies during hospitalization: Pending at discharge 12/17/21 10:35 Surgical [PTH] Routine Labs on day of discharge: Labs from last 24 hours 12/20/21 12/20/21 04:55 04:55 WBC 4.2 L RBC 2.88 L Hgb 8.7 L Hct 27.7 L MCV 96.2 MCH 30.2 MCHC 31.4 L RDW 15.3 H Plt Count 331 MPV 9.5 Immature Gran % (Auto) 0.2 Neut % (Auto) 24.7 L Lymph % (Auto) 50.7 H Rush % (Auto) 22.0 H Eos % (Auto) 1.7 Baso % (Auto) 0.7 Lymph # (Auto) 2.12 Rush # (Auto) 0.9 H Eos # (Auto) 0.1 Baso # (Auto) 0.0 Abs Immat Gran (auto) 0.01 Absolute Neuts (auto) 1.0 L Absolute Nucleated RBC 0.0 Nucleated RBC % 0.0 Sodium 136 L Potassium 3.3 L Chloride 101 Carbon Dioxide 28 Anion Gap 7 L BUN < 2 L Creatinine 0.50 L Estim Creat Clear Calc 112 Estimated GFR > 60 Glucose 99 Calcium 9.0 Total Bilirubin 0.1 L AST 56 H ALT 42 H Alkaline Phosphatase 53 Total Protein 5.0 L Albumin 2.6 L Discharge Plan Discharge Attending physician on discharge: Kai Zamorano Consulting providers: Royal Perez ; Oscar Martinez ; Tani Osorio Discharging Clinician: Kai Zamorano Patient Disposition: Home, Self-Care Activity: unlimited Diet: regular Patient Instructions: Antibiotic Form Stand Alone Forms: General Discharge Information Follow-up/Referrals: Kai Zamorano, [Physician] - Discharge Medications: New pantoprazole 40 mg Tablet,Delayed Release (Dr/Ec) 40 mg PO QAM Qty: 30 3RF ondansetron 4 mg tablet,disintegrating 4 mg PO Q8H Qty: 9 0RF Continued sertraline [Zoloft] 100 mg Tablet 100 mg PO DAILY zinc gluconate [Zinc-50] 50 mg Tablet 50 mg PO DAILY multivit with min-folic acid [Adult One Daily Multivitamin] 0.4 mg Tablet 1 tablet PO DAILY Date of admission: 12/17/21 09:54 Primary Care Provider: Tripp,Stan Admitting Provider: Carrie Griffiths Attending physician on admission: Kai Zamorano Condition: Serious
--- NOTE | 2021-12-20 15:41 | WPDGIPROGNO ---
Progress Note: A&P Assessment and Plan (1) Acute alcoholic pancreatitis: Qualifiers: Acute pancreatitis complication: no infection or necrosis Qualified Code(s): K85.20 - Alcohol induced acute pancreatitis without necrosis or infection Code(s): K85.20 - Alcohol induced acute pancreatitis without necrosis or infection Status: Acute Assessment and Plan: CT scan showed Acute interstitial pancreatitis, diffuse hepatic steatosis. tolerating more diet and feeling better home soon (2) Reflux esophagitis: Code(s): K21.00 - Gastro-esophageal reflux disease with esophagitis, without bleeding Status: Acute Assessment and Plan: ppi daily (3) Hallucinations: Code(s): R44.3 - Hallucinations, unspecified Status: Acute Assessment and Plan: [facility] related neurology on board this also improved (4) Alcohol withdrawal syndrome with complication: Code(s): F10.939 - Alcohol use, unspecified with withdrawal, unspecified Status: Acute Assessment and Plan: [facility] protocol (5) Anemia: Qualifiers: Anemia type: unspecified type Qualified Code(s): D64.9 - Anemia, unspecified Code(s): D64.9 - Anemia, unspecified Status: Acute Assessment and Plan: stable and no changes also malnutrition Subjective Date/time seen: 12/20/21 15:41 Interval history: feeling better and eating more, pain much better, less tremors Review of Systems Review of Systems: All systems reviewed & are unremarkable except as noted in HPI and below Exam Const: General: comfortable and no acute distress Other: chronically ill appearing HENMT: General nose exam: Normal nares present Eyes: General: appearance normal, both eyes and all related structures Neck: Neck: no JVD Resp: Auscultation: clear to auscultation bilaterally Cardio: Rate: regular rate Rhythm: regular rhythm GI: Inspection: non-distended GI Palp: Yes Soft to palpation Auscultation: normal bowel sounds Other: Nontender Skin: General skin exam: normal color Neuro: Speech: normal speech Other: No tremors Extrem: General: normal to inspection Psych: Affect: Anxious affect present Objective Data Vital Signs Vital Signs: Vital Signs - 24 hr 12/19/21 16:00 12/19/21 16:00 12/19/21 20:00 Temperature Pulse Rate 108 H Pulse Rate [Monitor] 109 H Respiratory Rate Blood Pressure 130/50 L Pulse Oximetry Oxygen Delivery Room Air 12/19/21 20:16 12/19/21 20:00 12/20/21 00:00 Temperature 97.7 F Pulse Rate 109 H 104 H Pulse Rate [Monitor] 83 Respiratory Rate 14 Blood Pressure 132/82 Pulse Oximetry 100 Oxygen Delivery 12/20/21 00:00 12/20/21 05:12 12/20/21 04:00 Temperature 97.7 F Pulse Rate 83 67 83 Pulse Rate [Monitor] Respiratory Rate 16 Blood Pressure 110/60 Pulse Oximetry 98 Oxygen Delivery 12/20/21 08:00 12/20/21 12:00 12/20/21 14:00 Temperature 97.6 F Pulse Rate 80 85 65 Pulse Rate [Monitor] Respiratory Rate 16 Blood Pressure 125/64 Pulse Oximetry 97 Oxygen Delivery Intake/Output Intake/Output: Intake & Output 12/17/21 12/18/21 12/19/21 12/20/21 23:59 23:59 23:59 23:59 Intake Total 4570 4410 6080 640 Output Total 2700 2975 1700 800 Balance 1870 1435 4380 -160 Meds/Results Medications: Active Medications Generic Name Dose Route Start Last Admin Trade Name Freq PRN Reason Stop Dose Admin Chlordiazepoxide HCl 50 mg 12/20/21 13:00 12/20/21 13:48 Chlordiazepoxide (*Crx) 25 Mg Capsule PO 50 mg Q8H [place] Administration Diazepam 5 mg 12/20/21 11:44 Diazepam Inj (*Crx) 10 Mg/2 Ml Syringe IV PUSH Q6H PRN CIWA score greater than 8 Folic Acid 1 mg 12/16/21 09:00 12/20/21 09:26 Folic Acid 1 Mg/0.2 Ml Inj IV PUSH 1 mg QAM [place] Administration Morphine Sulfate 2 mg 12/20/21 11:45 Morphine Sulfate (*Crx) 2 Mg/Ml Inj IV PUS
== END 2021-12-20 16:42 | disposition home or self-care (01) | DRG 282 ==
LOC: ANHED 23:02 → ANH2MED 23:28
PROVIDERS: Internal Medicine Gastroenterology; Student in an Organized Health Care Education/Training Program; Admitting Provider Internal Medicine; Emergency Provider Nurse Practitioner Family; PCP Hospitalist; Visit Provider Internal Medicine
PROC: 0DJ08ZZ Inspection of Upper Intestinal Tract, Via Natural or Artificial Opening Endoscopic (ICD-10-PCS; CPT 43235; principal; 2021-12-17 13:30)
DX: K85.20 Alcohol induced acute pancreatitis without necrosis or infection (principal); F10.221 Alcohol dependence with intoxication delirium; F10.231 Alcohol dependence with withdrawal delirium; K70.10 Alcoholic hepatitis without ascites; D50.9 Iron deficiency anemia, unspecified; K21.00 Gastro-esophageal reflux disease with esophagitis, without bleeding; K44.9 Diaphragmatic hernia without obstruction or gangrene; K29.70 Gastritis, unspecified, without bleeding; K76.0 Fatty (change of) liver, not elsewhere classified; R93.2 Abnormal findings on diagnostic imaging of liver and biliary tract; D64.9 Anemia, unspecified; F41.9 Anxiety disorder, unspecified; F32.A Depression, unspecified; F43.10 Post-traumatic stress disorder, unspecified; K92.0 Hematemesis; R13.10 Dysphagia, unspecified; E87.6 Hypokalemia; R44.3 Hallucinations, unspecified; E87.2 Acidosis; Z87.891 Personal history of nicotine dependence
CPT/HCPCS: 36415; 70450; 74177; 76705; 80053; 80061; 80307; 81001; 81025; 82607; 82746; 83036; 83540; 83550; 83605; 83690; 83735; 84100; 84145; 85025; 85055; 86140; 88305; 93005; 96361; 96365; 96366; 96368; 96374; 96375; 96376; 99285; A9270; C9113; G0378; G0379; J1170; J2405; J2704; J3360; J3411; J3475; J3480; J7030; J7040; J7120; Q9967

== ENCOUNTER 2022-03-08 09:03 | Emergency (ER) | payer OTHER, SELFPAY ==
[2022-03-08 09:06] VITALS: BP 104/63; PULSE 92; RESP 16; TEMP 36.8; O2SAT 100
--- NOTE | 2022-03-08 09:33 | ED.NAVMDI ---
HPI - Nausea/Vomiting/Diarrhea General Chief complaint: Nausea/Vomiting/Diarrhea Stated complaint: nausea Time Seen by Provider: 03/08/22 09:35 Source: patient and RN notes reviewed Mode of arrival: ambulatory Limitations: no limitations History of Present Illness HPI Narrative: 26-year-old female presented for complaint of nausea and vomiting, onset yesterday at 6:30 a.m., states last episode of emesis today at 4:00 a.m.. Denies abdominal pain, flank pain, urinary complaints, fevers or chills. Last eaten 2 days ago. Reports symptoms are improving, starting to get appetite back today. Patient has history of Alcoholism she is taking Vivitrol injections daily and states she has not had alcohol in 3 months. 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 Related Data Home Medications Medication Instructions Recorded Confirmed sertraline 100 mg tablet (Zoloft) 100 mg PO DAILY 12/16/21 03/08/22 buspirone 10 mg tablet 10 mg PO TID 03/08/22 03/08/22 naltrexone microspheres 380 mg 380 mg IM DAILY 03/08/22 03/08/22 intramuscular suspension,extended release (Vivitrol) ondansetron 4 mg disintegrating 4 mg PO Q8H PRN Nausea 03/08/22 03/08/22 tablet Allergies Allergy/AdvReac Type Severity Reaction Status Date / Time latex Allergy Rash Verified 03/08/22 09:16 Review of Systems Review of Systems: CONSTITUTIONAL: Denies body aches, fever, chills ENT: Denies rhinorrhea, congestion CARDIOVASCULAR: Denies chest pain, palpitations, or edema. RESPIRATORY: Denies cough or dyspnea. GASTROINTESTINAL: Endorses nausea, vomiting,Denies abdominal pain, diarrhea, hematochezia, melena, hematemesis GENITOURINARY: Denies dysuria, hematuria, or CVA tenderness. SKIN: Denies rash, itching, or wounds. MUSCULOSKELETAL: Denies back pain, joint pain, or myalgia. NEUROLOGIC: Denies headache, numbness, tingling, or weakness. All systems reviewed & are unremarkable except as noted in HPI and below PMFSH Past Medical History Medical History Alcohol abuse Alcoholic pancreatitis Anxiety Depression Gastritis Hiatal hernia Post traumatic stress disorder (PTSD) Reflux esophagitis Scoliosis Surgical History Surgical History No history of previous surgery Family History Family History Father Alcoholism Mother , When the patient was 4-month-old Motor vehicle collision victim Social History Social History Social History: She lives with her grandparents since she has lost both of her jobs due to behaviors associated with her alcoholism. Smoking packs per day: 0.5 Smoking cigarettes per day: 10.0 Years smoked: 1 Smoking pack-years: 0.50 Smoking status: Former smoker Tobacco type: cigarettes Alcohol intake: current Drinks per week: 1 Substance use: current Substance use type: marijuana Other substance usage details: drinks about pint of vodka daily and admits to occasional marijauna Last use: vodka 12/16/21 marijauan 12/13/21 Spiritual care concerns: No Comments At time of signature, I have reviewed and agree with nursing past medical, surgical, social and family history unless otherwise noted. Please see nursing chart for further information. There is no relevant family history pertinent to the presenting complaint Exam Narrative: GENERAL: ill-appearing, in no acute distress. EYES: EOMI. Conjunctivae normal. ENT: Mucous membranes pink and moist. CHEST: No respiratory distress. Clear to auscultation. HEART: Regular rate and rhythm. No murmur appreciated. Normal peripheral pulses. ABDOMEN: abd soft, nondistended, normal active bowel sounds. nontender abdomen; No guarding, rebound tenderness, asymmetry SKIN: Warm, dry, no rash. Capillary refill normal. Normal ski
--- NOTE | 2022-03-08 09:48 | PC.NURSE ---
NO UC ORDERED PER PROVIDER
== END 2022-03-08 09:48 | disposition home or self-care (01) ==
PROVIDERS: Emergency Provider Nurse Practitioner Family; PCP Hospitalist
DX: R11.2 Nausea with vomiting, unspecified (principal); F41.9 Anxiety disorder, unspecified; F32.9 Major depressive disorder, single episode, unspecified; Z87.891 Personal history of nicotine dependence
CPT/HCPCS: 81003; 81025; 99213; G0463

== ENCOUNTER 2022-04-02 17:53 | Emergency (ER) | payer OTHER, SELFPAY ==
[2022-04-02 17:58] VITALS: BP 111/69; PULSE 97; RESP 16; TEMP 36.5; O2SAT 100
--- NOTE | 2022-04-02 19:31 | ED.NAVMDI ---
HPI - Nausea/Vomiting/Diarrhea General Chief complaint: Nausea/Vomiting/Diarrhea Stated complaint: Abdominal Pain/Vomiting Time Seen by Provider: 04/02/22 19:32 Source: patient and RN notes reviewed Mode of arrival: ambulatory Limitations: no limitations History of Present Illness HPI Narrative: 26-year-old female with a history of IBS presenting for complaint of nausea, vomiting, diarrhea over the last couple of days. She states it is worse on her menses. She was unable to go to work today and needs a note. She endorses improvement in symptoms but still has decreased appetite and upper abdominal pain. Denies shortness of breath, wheezing, cough, fevers or chills. States she has nausea medication at home. Related Data Home Medications Medication Instructions Recorded Confirmed sertraline 100 mg tablet (Zoloft) 100 mg PO DAILY 12/16/21 03/08/22 buspirone 10 mg tablet 10 mg PO TID 03/08/22 03/08/22 naltrexone microspheres 380 mg 380 mg IM DAILY 03/08/22 03/08/22 intramuscular suspension,extended release (Vivitrol) Allergies Allergy/AdvReac Type Severity Reaction Status Date / Time latex Allergy Rash Verified 03/08/22 09:16 Review of Systems Review of Systems: ROS per HPI All systems reviewed & are unremarkable except as noted in HPI and below PMFSH Past Medical History Medical History Alcohol abuse Alcoholic pancreatitis Anxiety Depression Gastritis Hiatal hernia Post traumatic stress disorder (PTSD) Reflux esophagitis Scoliosis Surgical History Surgical History No history of previous surgery Family History Family History Father Alcoholism Mother , When the patient was 4-month-old Motor vehicle collision victim Social History Social History Social History: She lives with her grandparents since she has lost both of her jobs due to behaviors associated with her alcoholism. Smoking packs per day: 0.5 Smoking cigarettes per day: 10.0 Years smoked: 1 Smoking pack-years: 0.50 Smoking status: Former smoker Tobacco type: cigarettes Alcohol intake: current Drinks per week: 1 Substance use: current Substance use type: marijuana Other substance usage details: drinks about pint of vodka daily and admits to occasional marijauna Last use: vodka 12/16/21 marijauan 12/13/21 Spiritual care concerns: No Comments At time of signature, I have reviewed and agree with nursing past medical, surgical, social and family history unless otherwise noted. Please see nursing chart for further information. There is no relevant family history pertinent to the presenting complaint Exam Narrative: GENERAL: Well-appearing, and in no acute distress. EYES: EOMI. Conjunctivae normal. ENT: Mucous membranes pink and moist. CHEST: No respiratory distress. Clear to auscultation. HEART: Regular rate and rhythm. No murmur appreciated. Normal peripheral pulses. ABDOMEN: abd soft, nondistended, normal active bowel sounds. Upper abdominal tenderness; No guarding, rebound tenderness, asymmetry EXTREMITIES: Normal range of motion. No edema. SKIN: Warm, dry, no rash. Capillary refill normal. Normal skin turgor. NEURO: No focal deficits. Alert and oriented x3. PSYCH: Normal affect. Course Course Emergency Course: Patient is aware of diagnosis, understands and agrees to treatment plan. Anticipatory guidance given. Patient agrees to follow-up as directed and is aware of reasons to seek care at the emergency department. Portions of this record may have been created with voice recognition software Level of Care: Express Care Visit Vital Signs Vital signs: Vital Signs Temperature 97.7 F 04/02/22 17:58 Pulse Rate 97 04/02/22 17:58 Respiratory Rate
== END 2022-04-02 19:38 | disposition home or self-care (01) ==
PROVIDERS: Emergency Provider Nurse Practitioner Family; PCP Hospitalist
DX: R11.2 Nausea with vomiting, unspecified (principal); R19.7 Diarrhea, unspecified; Z87.891 Personal history of nicotine dependence; F10.90 Alcohol use, unspecified, uncomplicated; F12.90 Cannabis use, unspecified, uncomplicated; F41.9 Anxiety disorder, unspecified; F32.A Depression, unspecified; K21.00 Gastro-esophageal reflux disease with esophagitis, without bleeding
CPT/HCPCS: 99211; G0463

== ENCOUNTER 2022-05-29 15:31 | Emergency (ER) | payer OTHER, SELFPAY ==
[2022-05-29 15:35] VITALS: BP 122/86; PULSE 106; RESP 20; TEMP 36.7; O2SAT 99
--- NOTE | 2022-05-29 15:46 | ED.NAVMDI ---
HPI - Nausea/Vomiting/Diarrhea General Chief complaint: Nausea/Vomiting/Diarrhea Stated complaint: nausea/ibs Time Seen by Provider: 05/29/22 15:47 Source: patient and RN notes reviewed Mode of arrival: ambulatory Limitations: no limitations History of Present Illness HPI Narrative: 26 year old female with long-standing history of IBS with alternating constipation and diarrhea. This is triggered by stressors and hormonal changes associated with menstruation. Also has history of PTSD, anxiety, depression, alcoholism in remission with previous pancreatitis. Has had abdominal pain for the past week; trying to drink enough fluids and able to eat small meals. Having emesis in the morning and small, liquid, black/brown stools infrequently. Hasn't been able to take miralax or anti-anxiety medications due to nausea and vomiting. Uses a vape, marijuana. Denies recent alcohol use. This is similar to the recurrences she has been suffering with every few months for years. Today requesting sick note for work. Related Data Home Medications Medication Instructions Recorded Confirmed sertraline 100 mg tablet (Zoloft) 100 mg PO DAILY 12/16/21 03/08/22 buspirone 10 mg tablet 10 mg PO TID 03/08/22 03/08/22 Allergies Allergy/AdvReac Type Severity Reaction Status Date / Time latex Allergy Rash Verified 05/29/22 15:45 Review of Systems Review of Systems: CONSTITUTIONAL: Denies body aches, fever, chills ENT: Denies rhinorrhea, congestion CARDIOVASCULAR: Denies chest pain, palpitations, or edema. RESPIRATORY: Denies cough or dyspnea. GASTROINTESTINAL: Endorses abdominal pain, nausea, vomiting, diarrhea. Denies hematochezia, melena, hematemesis GENITOURINARY: Denies dysuria, hematuria, or CVA tenderness. SKIN: Denies rash, itching, or wounds. MUSCULOSKELETAL: Denies back pain, joint pain, or myalgia. NEUROLOGIC: Denies headache, numbness, tingling, or weakness. All systems reviewed & are unremarkable except as noted in HPI and below PMFSH Past Medical History Medical History Alcohol abuse Alcoholic pancreatitis Anxiety Depression Gastritis Hiatal hernia Post traumatic stress disorder (PTSD) Reflux esophagitis Scoliosis Surgical History Surgical History No history of previous surgery Family History Family History Father Alcoholism Mother , When the patient was 4-month-old Motor vehicle collision victim Social History Social History Social History: She lives with her grandparents since she has lost both of her jobs due to behaviors associated with her alcoholism. Smoking packs per day: 0.5 Smoking cigarettes per day: 10.0 Years smoked: 1 Smoking pack-years: 0.50 Smoking status: Former smoker Tobacco type: cigarettes Alcohol intake: current Drinks per week: 1 Substance use: current Substance use type: marijuana Other substance usage details: drinks about pint of vodka daily and admits to occasional marijauna Last use: vodka 12/16/21 marijauan 12/13/21 Spiritual care concerns: No Comments At time of signature, I have reviewed and agree with nursing past medical, surgical, social and family history unless otherwise noted. Please see nursing chart for further information. There is no relevant family history pertinent to the presenting complaint Exam Narrative: GENERAL: ill, anxious appearing, and in no acute distress. EYES: EOMI. Conjunctivae normal. ENT: Mucous membranes pink and moist. CHEST: No respiratory distress. Clear to auscultation. HEART: Regular rate and rhythm. No murmur appreciated. Normal peripheral pulses. ABDOMEN: abd soft, concave, hyperactive bowel sounds. Tender abdomen with guarding to RLQ and LLQ. No asymmetry or organomegaly SKIN: Warm, dry,
== END 2022-05-29 16:15 | disposition home or self-care (01) ==
PROVIDERS: Emergency Provider Nurse Practitioner Family; PCP Hospitalist
DX: K58.1 Irritable bowel syndrome with constipation (principal); K58.0 Irritable bowel syndrome with diarrhea; Z87.891 Personal history of nicotine dependence; F41.9 Anxiety disorder, unspecified; F32.A Depression, unspecified; K21.00 Gastro-esophageal reflux disease with esophagitis, without bleeding; M41.9 Scoliosis, unspecified
CPT/HCPCS: 99211; G0463

== ENCOUNTER 2022-06-07 16:05 | Emergency (ER) | payer OTHER, SELFPAY ==
--- NOTE | ~2022-06-07 | CT_ITS ---
EXAMINATION: CT abdomen pelvis w con DATE: 06/07/2022 19:24 INDICATION: Right-sided lower abdominal pain, nausea and vomiting. TECHNIQUE: Computed tomography (CT) of the abdomen and pelvis was performed with 100 mL Omnipaque-350 intravenous contrast. Automated exposure control and iterative reconstruction technique were employe d. The dose-length product was 175.48 mGy-cm. COMPARISON: CT dated 12/15/2021 FINDINGS: Lung bases are clear. Heart size normal. No pericardial or pleural effusion. Diffuse hepatic steatosi s. Gallbladder, spleen, pancreas, bilateral adrenal glands and kidneys are normal. Decompressed bladd er, anteverted uterus and bilateral adnexa are unremarkable. Bowels including the appendix are normal . No free intraperitoneal gas or fluid. No pathologically enlarged abdominal or pelvic lymphadenopath y. Bones are unremarkable. IMPRESSION: 1. No acute intra-abdominal/pelvic process. 2. Diffuse hepatic steatosis. Reviewed, dictated and finalized at location A. [facility]
[2022-06-07 16:24] VITALS: BP 130/96; PULSE 129; RESP 14; TEMP 36.3; O2SAT 98
[2022-06-07 16:50] LABS: Appearance Urine Slightly Cloudy (Clear); Bilirubin Urine 2+ (Negative); Blood Urine 2+ (Negative); Color Urine Yellow (Yellow); Glucose Urine UA Negative (Negative); Ketones Urine 2+ mg/dL (Negative); Leukocyte Esterase Ur Negative LEU/UL (Negative); Nitrate Urine Negative (Negative); Protein Urine 3+ mg/dL (Negative); Specific Grav Ur >= 1.030 (1.001-1.035)
[2022-06-07 16:57] LABS: Mucus Urine Heavy /lpf; Squamous Epithelial Cell Urine Many /hpf (Few); WBC Urine 0-3 /hpf
[2022-06-07 16:58] LABS: Basophils Absolute Auto 0.1 K/mm3 (0.0-0.1); Basophils Percent Auto 1.5 % (0.2-1.2); Eosinophils Absolute Auto 0.1 K/mm3 (0-0.3); Eosinophils Percent Auto 1.2 % (0-4.4); Hematocrit 39.3 % (37.0-47.0); Hemoglobin 13.4 g/dL (12.0-15.0); Immature Granulocyte Absolute 0.01 K/mm3 (0.00-0.031); Immature Granulocyte Percent A 0.2 % (0-0.5); Lymphocytes Absolute Auto 1.81 K/mm3 (0.9-3.2); Lymphocytes Percent Auto 30.9 % (18.3-44.2); Mean Corpuscular HGB Conc 34.1 g/dl (32-36); Mean Corpuscular Hemoglobin 31.2 pg (26-34); Mean Corpuscular Volume 91.6 fl (80-100); Mean Platelet Volume 9.5 fl (7.4-10.4); Monocytes Absolute Auto 0.6 K/mm3 (0.1-0.6); Monocytes Percent Auto 10.8 % (2.6-8.5); Neutrophils Absolute Auto 3.2 K/mm3 (1.3-6.7); Neutrophils Percent Auto 55.4 % (45.5-73.1); Platelet Count Result 196 k/mm3 (150-375); Red Blood Count 4.29 M/mm3 (4.2-5.4); Red Cell Distribution Width 15.1 % (11.5-14.5); White Blood Count 5.9 K/mm3 (4.5-10.0)
[2022-06-07 16:58] LABS: Add Urine Microscopic? YES
[2022-06-07 17:15] LABS: Ethanol 297 mg/dL (<10)
[2022-06-07 17:18] LABS: Alanine Aminotransferase 112 U/L (6-35); Albumin Level 5.4 g/dL (3.5-5.1); Alkaline Phosphatase 117 U/L (38-126); Anion Gap 20 mmol/L (8-16); Aspartate Amino Transferase 202 U/L (14-36); Bilirubin,Total 0.6 mg/dL (0.2-1.3); Blood Urea Nitrogen 17 mg/dL (7-17); Calcium 9.1 mg/dL (8.4-10.2); Carbon Dioxide 21 mmol/L (22-30); Chloride 96 mmol/L (98-107); Estimated CRCL calculation 82 ml/min; Estimated Glomerular Filt Rate > 60; Glucose 83 mg/dL (65-110); Lipase 589 U/L (23-300); Potassium 3.6 mmol/L (3.4-5.0); Sodium 137 mmol/L (137-145)
[2022-06-07 17:24] LABS: Amphetamine Screen Urine Negative (Negative); Barbiturate Screen Urine Negative (Negative); Benzodiazepines Screen Urine Negative (Negative); Cannabinoid Screen Urine Positive (Negative); Cocaine Screen Urine Negative (Negative); Methadone Screen Urine Negative (Negative); Opiate Screen Urine Negative (Negative); Phencyclidine Screen Urine Negative (Negative)
[2022-06-07 19:01] VITALS: BP 121/77; PULSE 94; RESP 16; O2SAT 97
[2022-06-07] MEDS: SODIUM CHLORIDE 0.9% IV 1,000 ML 999 ML IV CONT (19:06)
--- NOTE | 2022-06-07 19:25 | PC.NURSE ---
1914 Assumed pt care from DINORA Llamas
[2022-06-07] MEDS: ONDANSETRON INJ 4 MG/2 ML VIAL IV PUSH (20:33)
--- NOTE | 2022-06-07 21:10 | ED.ALCOHOL ---
HPI - Alcohol General Chief Complaint: Alcohol Stated Complaint: alcohol withdrawal Time Seen by Provider: 06/07/22 18:19 Source: patient and family Mode of arrival: ambulatory Limitations: no limitations History of Present Illness HPI narrative: 26-year-old with a history of IBS, alcoholism here with the complaints of having alcohol withdrawal symptoms. Patient states that she was sober for 6 months but relapsed recently started drinking daily. She states that she drinks about a pint of vodka daily patient also complains of lower abdominal pain has history of constipation. She denies nausea, vomiting. No history of chest pain or shortness of breath. 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 Previous visits for alcohol intoxication: Yes Recent trauma: No Associated symptoms: abdominal pain Treatments prior to arrival: none Related Data Home Medications Medication Instructions Recorded Confirmed sertraline 100 mg tablet (Zoloft) 100 mg PO DAILY 12/16/21 05/29/22 buspirone 10 mg tablet 10 mg PO TID 03/08/22 05/29/22 Allergies Allergy/AdvReac Type Severity Reaction Status Date / Time latex Allergy Rash Verified 06/07/22 17:39 Review of Systems Review of Systems: All systems reviewed & are unremarkable except as noted in HPI and below Constitutional: Constitutional: Reports no additional constitutional complaints Eyes: Eyes: Reports no additional eye complaints ENT: Reports system reviewed and no additional complaints, except as documented Cardiovascular: Cardiovascular: Reports no additional cardiovascular complaints Respiratory: Respiratory: Reports no additional respiratory complaints Gastrointestinal: Gastrointestinal: Reports as per HPI Musculoskeletal: Musculoskeletal: Reports no additional musculoskeletal complaints [facility] Past Medical History Medical History Alcohol abuse Alcoholic pancreatitis Anxiety Depression Gastritis Hiatal hernia Post traumatic stress disorder (PTSD) Reflux esophagitis Scoliosis Surgical History Surgical History No history of previous surgery Family History Family History Father Alcoholism Mother , When the patient was 4-month-old Motor vehicle collision victim Social History Social History Social History: She lives with her grandparents since she has lost both of her jobs due to behaviors associated with her alcoholism. Smoking packs per day: 0.5 Smoking cigarettes per day: 10.0 Years smoked: 1 Smoking pack-years: 0.50 Smoking status: Former smoker Tobacco type: cigarettes Alcohol intake: current Drinks per week: 1 Substance use: current Substance use type: marijuana Other substance usage details: drinks about pint of vodka daily and admits to occasional marijauna Last use: vodka 12/16/21 marijauan 12/13/21 Spiritual care concerns: No Exam Narrative: GENERAL: Well-appearing, well-nourished, and in no acute distress. HEAD: Normocephalic, atraumatic. EYES: PERRLA and EOMI. NECK: Supple. CHEST: Clear to auscultation. No respiratory distress. HEART: Regular rate and rhythm. No murmur heard. Normal peripheral pulses. ABDOMEN: Soft, mild tenderness in the supra pubic area , nondistended, normal active bowel sounds. EXTREMITIES: Normal range of motion. No edema. SKIN: Warm, dry, no rash. NEURO: No focal deficits. Alert and oriented x3. PSYCH: Normal mood and affect. Course Course Emergency Course: Patient was given a liter of normal saline, did obtain basic labs as she was complaining of lower abdominal pain I did do a CT scan of the abdomen. Patient had no further episodes of withdrawal symptoms advised her to follow-up with alcohol detox programs Vital Signs Vital s
[2022-06-07 21:30] VITALS: BP 121/72; PULSE 89; RESP 14; O2SAT 10
== END 2022-06-07 21:40 | disposition home or self-care (01) ==
PROVIDERS: Emergency Provider Family Medicine; PCP Hospitalist
DX: F10.239 Alcohol dependence with withdrawal, unspecified (principal); K21.00 Gastro-esophageal reflux disease with esophagitis, without bleeding; K44.9 Diaphragmatic hernia without obstruction or gangrene; K58.9 Irritable bowel syndrome, unspecified; F41.9 Anxiety disorder, unspecified; F32.A Depression, unspecified; F43.10 Post-traumatic stress disorder, unspecified; Z87.891 Personal history of nicotine dependence; K76.0 Fatty (change of) liver, not elsewhere classified; Y90.8 Blood alcohol level of 240 mg/100 ml or more
CPT/HCPCS: 36415; 74177; 80053; 80307; 81001; 81025; 83690; 85025; 96361; 96374; 99284; J2405; J7030; Q9967

== ENCOUNTER 2022-07-24 16:07 | Emergency (ER) | payer OTHER, SELFPAY ==
[2022-07-24 16:12] VITALS: BP 129/85; PULSE 94; RESP 18; TEMP 37; O2SAT 99
--- NOTE | 2022-07-24 17:03 | ED.NAVMDI ---
HPI - Nausea/Vomiting/Diarrhea General Chief complaint: Nausea/Vomiting/Diarrhea Stated complaint: Diarrhea Time Seen by Provider: 07/24/22 17:03 Source: patient, RN notes reviewed and old records reviewed Mode of arrival: ambulatory Limitations: no limitations History of Present Illness HPI Narrative: 26-year-old female who presents to [facility] with complaints abdominal discomfort and some diarrhea since early this morning, some abdominal cramping, history of IBS, nausea vomiting X1 today. Patient reports that she has not had any fevers, chills or sweats, describes intermittent abdominal cramping denies any right lower quadrant pain or any burning or pain with urination. Patient reports that her last diarrhea stool was at noon and has eaten and drank some liquids with no further emesis. MD elicited complaint: nausea, vomiting, diarrhea and abdominal pain (cramping) Pertinent past history: other (reports IBS) Onset (ago): hour(s) (0600) Description of vomiting: food contents Description of diarrhea: watery Associated nausea: Yes Associated abdominal pain: Yes Pain consistency: colicky and other (crampy) Treatment prior to arrival: none Related Data Home Medications Medication Instructions Recorded Confirmed sertraline 100 mg tablet (Zoloft) 100 mg PO DAILY 12/16/21 07/24/22 buspirone 10 mg tablet 10 mg PO TID 03/08/22 07/24/22 Allergies Allergy/AdvReac Type Severity Reaction Status Date / Time latex Allergy Rash Verified 06/07/22 17:39 Review of Systems Review of Systems: CONSTITUTIONAL: Denies fever, chills, or sweats. ENT: Denies rhinorrhea, congestion, sore throat, or otalgia. CARDIOVASCULAR: Denies chest pain, palpitations, or edema. RESPIRATORY: Denies cough or dyspnea. GASTROINTESTINAL: Reports abdominal cramping, nausea, vomiting, diarrhea. GENITOURINARY: Denies dysuria or hematuria. SKIN: Denies rash or itching. MUSCULOSKELETAL: Denies back pain, joint pain, or myalgia. NEUROLOGIC: Denies headache, numbness, or weakness. All systems reviewed & are unremarkable except as noted in HPI and below PMFSH Past Medical History Medical History Alcohol abuse Alcoholic pancreatitis Anxiety Depression Gastritis Hiatal hernia Post traumatic stress disorder (PTSD) Reflux esophagitis Scoliosis Surgical History Surgical History No history of previous surgery Family History Family History Father Alcoholism Mother , When the patient was 4-month-old Motor vehicle collision victim Social History Social History (Updated 07/28/22 @ 07:24 by Karli Yates NP) Social History: She lives with her grandparents since she has lost both of her jobs due to behaviors associated with her alcoholism. Smoking packs per day: 0.5 Smoking cigarettes per day: 10.0 Years smoked: 1 Smoking pack-years: 0.50 Smoking status: Current every day smoker Tobacco type: e-cigarettes/vaping Alcohol intake: current Drinks per week: 1 Substance use: current Substance use type: marijuana Other substance usage details: drinks about pint of vodka daily and admits to occasional marijauna Spiritual care concerns: No Comments At time of signature, agree with nursing past medical, surgical, social and family history. There is no relevant family history pertinent to the presenting complaint Exam Narrative: GENERAL: Well-appearing, well-nourished, and in no acute distress. HEAD: Normocephalic, atraumatic. EYES: PERRLA, conjunctivae clear, and EOMI. ENT: Nares clear. Mucous membranes moist. Oropharynx without edema, erythema, or lesions. Tonsils not enlarged and without exudate. NECK: Supple. No lymphadenopathy CHEST: Speaks in full sentences. No respiratory distress. HEART: Regular rate and rhythm. ABDOMEN: Soft, flat, nond
== END 2022-07-24 17:27 | disposition home or self-care (01) ==
PROVIDERS: Emergency Provider Registered Nurse; PCP Hospitalist
DX: K52.9 Noninfective gastroenteritis and colitis, unspecified (principal); F17.290 Nicotine dependence, other tobacco product, uncomplicated; F12.90 Cannabis use, unspecified, uncomplicated; K21.00 Gastro-esophageal reflux disease with esophagitis, without bleeding; F41.9 Anxiety disorder, unspecified; F32.A Depression, unspecified; F10.90 Alcohol use, unspecified, uncomplicated
CPT/HCPCS: 99213; G0463

== ENCOUNTER 2023-07-22 14:00 | Emergency (ER) | payer OTHER, SELFPAY ==
[2023-07-22 14:07] VITALS: BP 140/89; PULSE 106; RESP 18; TEMP 36.4; O2SAT 98
--- NOTE | 2023-07-22 14:53 | ED.URI ---
HPI - URI/Sore Throat General Chief Complaint: Upper Respiratory Infection Stated Complaint: diarrhea/nausea/cough Source: patient, RN notes reviewed and old records reviewed Mode of arrival: ambulatory Limitations: no limitations History of Present Illness HPI Narrative: 27-year-old female to Express Care for complaint watery diarrhea, nausea, cough, chills, vomiting, decreased urinary output for 5 days. Patient endorses weakness and blurry vision that started today. Patient endorses history alcoholism, reports sobriety for past 6 months. Patient sources history of pancreatitis and hepatic history. Related Data Home Medications Medication Instructions Recorded Confirmed sertraline 100 mg tablet (Zoloft) 100 mg PO DAILY 12/16/21 07/24/22 buspirone 10 mg tablet 10 mg PO TID 03/08/22 07/24/22 Allergies Allergy/AdvReac Type Severity Reaction Status Date / Time latex Allergy Rash Verified 07/22/23 14:09 Review of Systems Review of Systems: All systems reviewed & are unremarkable except as noted in HPI and below Constitutional: Constitutional: Reports as per HPI, Reports body ache(s), Reports chills, Reports fatigue and Reports weakness Eyes: Eyes: Reports as per HPI and Reports blurry vision ENT: Reports system reviewed and no additional complaints, except as documented Cardiovascular: Cardiovascular: Reports no additional cardiovascular complaints, Denies chest pain and Denies dyspnea Respiratory: Respiratory: Reports no additional respiratory complaints, Reports cough and Denies dyspnea Gastrointestinal: Gastrointestinal: Reports diarrhea, Reports nausea and Reports vomiting Genitourinary: Genitourinary: Reports as per HPI and Reports other ( decreased urinary output) Musculoskeletal: Musculoskeletal: Reports no additional musculoskeletal complaints Neurologic: Reports system reviewed and no additional complaints, except as documented Psychiatric: Psychiatric: Reports no additional psychiatric complaints [facility] Past Medical History Medical History Alcohol abuse Alcoholic pancreatitis Anxiety Depression Gastritis Hiatal hernia Post traumatic stress disorder (PTSD) Reflux esophagitis Scoliosis Surgical History Surgical History No history of previous surgery Family History Family History Father Alcoholism Mother , When the patient was 4-month-old Motor vehicle collision victim Social History Social History Social History: She lives with her grandparents since she has lost both of her jobs due to behaviors associated with her alcoholism. Smoking packs per day: 0.5 Smoking cigarettes per day: 10.0 Years smoked: 1 Smoking pack-years: 0.50 Smoking status: Current every day smoker Tobacco type: e-cigarettes/vaping Alcohol intake: current Drinks per week: 1 Substance use: current Substance use type: marijuana Other substance usage details: drinks about pint of vodka daily and admits to occasional marijauna Spiritual care concerns: No Comments At the time of my signature, I reviewed and agree with the nursing past medical, surgical, social, and family history. There is no relevant family history pertinent to the patient complaint. Exam Const: General: cooperative, no acute distress, alert, awake, in distress mild, ill appearing, tired appearing and uncomfortable Nutritional Appearance: well nourished Orientation/consciousness: patient oriented x3 Limitations: no limitations HENMT: Head: normal to inspection Ears: external ears normal Face/Nose/Sinus: Normal external nose present, Normal nares present, normal facial exam, No erythema and No edema Face and sinus: normal facial exam, no erythema and no edema Mouth: Yes
== END 2023-07-22 15:14 | disposition short-term general hospital (02) ==
PROVIDERS: Emergency Provider Nurse Practitioner Family; PCP Hospitalist
DX: R11.2 Nausea with vomiting, unspecified (principal); R19.7 Diarrhea, unspecified; R53.1 Weakness; F17.290 Nicotine dependence, other tobacco product, uncomplicated; F41.9 Anxiety disorder, unspecified; F32.A Depression, unspecified; K21.00 Gastro-esophageal reflux disease with esophagitis, without bleeding
CPT/HCPCS: 99212; G0463

== ENCOUNTER 2023-11-13 13:03 | Emergency (ER) | payer OTHER, SELFPAY ==
[2023-11-13] VITALS (42 sets, daily range): BP systolic 91–158; BP diastolic 53–117; PULSE 101–157; RESP 14–33; TEMP 34.5–36.6; O2SAT 95–100
--- NOTE | ~2023-11-13 | CT_ITS ---
CT abdomen pelvis w con Ordering provider: Calvin Vega MD History: 27 years Female with . Right sided pain, n/v, alcohol use disorder . Comparison: None. Technique: CT abdomen and pelvis with IV and without oral contrast. Automated exposure control and it erative reconstruction technique were employed. The dose-length product was 401.08 mGy-cm. 100 ML Omn ipaque 350 was given IV Findings: VISUALIZED LOWER CHEST: Groundglass appearance is seen in the left lung base and to lesser extent the right lung base. Dependent atelectasis is possible but early pneumonia cannot be excluded. Follow-up advised. UPPER ABDOMINAL ORGANS: Liver: Fat infiltration. Hepatomegaly. Gallbladder: Normal. Spleen: Normal. Stomach/duodenum: Normal. Pancreas: Normal. Adrenals: Normal. Kidneys: Minimal fullness of the renal pelvis bilaterally most likely due to overfilled urinary bladd er. PELVIC ORGANS: The bladder is normal. Uterus: Normal. 1.8 cm right ovarian follicle is noted. BOWEL AND MESENTERY: Colon: No evidence of diverticulitis. Normal appendix. Small Bowel: Normal. No obstruction. Peritoneum/mesentery: No free air or free fluid. No mesenteric lymphadenopathy. RETROPERITONEUM: Normal aorta. No retroperitoneal lymphadenopathy. MUSCULOSKELETAL: Superficial soft tissues: The superficial soft tissues are normal. Bones: Normal spine. IMPRESSION: 1. Hepatomegaly with Fat infiltration of the liver. 2. Minimal fullness of the renal pelvis bilaterally no definite stones seen. 3. Groundglass appearance in both lungs lower lobes more on the left side which may indicate depende nt atelectatic changes versus early pneumonia. Clinical correlation advised. 4. No evidence of appendicitis, diverticulitis or intestinal obstruction. Reviewed, dictated and finalized at location A. IMPRESSION: 1. Hepatomegaly with Fat infiltration of the liver. 2. Minimal fullness of the renal pelvis bilaterally no definite stones seen. 3. Groundglass appearance in both lungs lower lobes more on the left side whic h may indicate dependent atelectatic changes versus early pneumonia. Clinical c orrelation advised. 4. No evidence of appendicitis, diverticulitis or intestinal obstruction.
--- NOTE | ~2023-11-13 | XR_ITS ---
XR chest 1V portable Ordering provider: Calvin Vega MD History: 27 years Female with . post R IJ central line . Comparison: November 13, 2011 FINDINGS: MEDIASTINUM: The cardiac silhouette is not enlarged. Right central line with the tip in the right atrium. LUNGS: No infiltrates, effusions or pneumothorax. OTHER: No free air under the diaphragm. IMPRESSION: Right central line with the tip in the right atrium. No acute cardiopulmonary pathology. Reviewed, dictated and finalized at location A.
[2023-11-13 14:21] LABS: Hematocrit 43.9 % (35.0-49.0); Mean Corpuscular HGB Conc 31.9 g/dL (32-36); Mean Corpuscular Hemoglobin 35.5 pg (27.0-31.0); Mean Corpuscular Volume 111.4 fL (78.0-102.0); Mean Platelet Volume 9.2 fl (9.2-11.8); Platelet Count Result 434 K/mm3 (150-420); Red Blood Count 3.94 M/mm3 (4.20-5.40); Red Cell Distribution Width 12.2 % (11.6-14.4)
[2023-11-13 14:27] LABS: White Blood Count 29.8 K/mm3 (4.8-10.8)
[2023-11-13 14:38] LABS: SPREG INTERNAL CONTROL Positive; Serum Qual hCG Negative
[2023-11-13 14:39] LABS: Alanine Aminotransferase 52 U/L (14-59); Albumin Level 4.7 g/dL (3.4-5.0); Alkaline Phosphatase 162 U/L (46-116); Aspartate Amino Transferase 217 U/L (15-37); Bilirubin,Total 0.6 mg/dL (0.00-1.00); Blood Urea Nitrogen 18 mg/dL (7-18); Calcium 9.3 mg/dL (8.5-10.1); Chloride 94 mmol/L (98-108); Estimated CRCL calculation 63 ml/min; Estimated Glomerular Filt Rate > 60; Glucose 66 mg/dL (70-99); Lipase 27 U/L (16-77); Osmolality Calculated 283 mOsm/kg (285-295); Potassium 4.5 mmol/L (3.5-5.1); Sodium 137 mmol/L (136-145); Total Protein 9.5 g/dL (6.4-8.2)
[2023-11-13 14:40] LABS: Band Neutrophils Percent 0 % (0-6); Lymphocytes Absolute Manual 2.38 K/mm3 (1.1-4.5); Lymphocytes Percent Manual 8 % (18-44); Monocytes Absolute Manual 0.59 K/mm3 (0.1-0.90); Monocytes Percent Manual 2 % (3-9); Neutrophils Absolute Manual 26.82 K/mm3 (1.7-7.2); Neutrophils Percent Manual 90 % (46-73)
[2023-11-13 14:41] LABS: Platelet Estimate Slightly Increased (Adequate)
[2023-11-13 14:42] LABS: Ethanol 167 mg/dL (0-6)
[2023-11-13 14:49] LABS: Carbon Dioxide 5 mmol/L (21-32)
[2023-11-13] MEDS: MORPHINE SULFATE INJ (*CRX) 10 MG/ML AMP 8 MG IM (14:58)
[2023-11-13] MEDS: ONDANSETRON INJ 4 MG/2 ML VIAL IM (15:02)
[2023-11-13 15:04] LABS: Appearance Urine Clear (Clear); Bilirubin Urine Negative (Negative); Blood Urine 1+ (Negative); Color Urine Light Yellow (Yellow); Glucose Urine UA Negative (Negative); Ketones Urine 2+ (Negative); Leukocyte Esterase Ur Negative LEU/UL (Negative); Nitrate Urine Negative (Negative); Protein Urine 3+ (Negative); Specific Grav Ur >= 1.030 (1.010-1.020); Urobilinogen Urine 0.2 mg/dL (0.2-1.0)
[2023-11-13 15:11] LABS: Add Urine Microscopic? YES; RBC Urine Noted /hpf (0-2); Squamous Epithelial Cell Urine Moderate /hpf (Few); WBC Urine None seen /hpf (0-3)
[2023-11-13 15:12] LABS: Bacteria Urine None seen /hpf
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
[2023-11-13 15:14] LABS: Amphetamine Screen Urine Negative (Negative); Barbiturate Screen Urine Negative (Negative); Benzodiazepines Screen Urine Negative (Negative); Cannabinoid Screen Urine Positive (Negative); Cocaine Screen Urine Negative (Negative); Methadone Screen Urine Negative (Negative); Opiate Screen Urine Negative (Negative); Phencyclidine Screen Urine Negative (Negative)
--- NOTE | 2023-11-13 15:36 | PC.NURSE ---
unable to upload vital signs into this chart. 1400: resp-16, pulse-118, bp-121/59, pulse ox-97 room air 1500: resp-18, pulse-107, bp-117/64, pulse ox-100 room air 1530: resp-18, pulse-124, bp-108/66, pulse ox-100 room air
[2023-11-13 16:42] LABS: Glucose Point of Care 70 mg/dl (65-105)
[2023-11-13] MEDS: LACTATED RINGERS 1,000 ML 999 ML IV CONT ×3 (17:48→22:55)
[2023-11-13] MEDS: FAMOTIDINE 20 MG/2 ML VIAL 40 MG IV PUSH (17:52)
[2023-11-13] MEDS: ONDANSETRON INJ 4 MG/2 ML VIAL IV PUSH ×2 (17:55→20:09)
[2023-11-13] MEDS: AMPICILLIN SULB 3 GM/NS 100 ML 3 GM/100 ML VIAL IVPB (18:05)
[2023-11-13] MEDS: fentaNYL CITRATE INJ (*CRX) 100 MCG/2 ML VIAL IV PUSH (18:06)
[2023-11-13 18:08] LABS: Reflex Lactic Acid Yes or No Add Lactic
--- NOTE | 2023-11-13 18:14 | PC.NURSE ---
181: Assisted w/ central line access. Held doppler as attempted to gain access. Used PPE and proper sterile technique. Cleaned room after.
--- NOTE | 2023-11-13 18:34 | PC.NURSE ---
183: Pt phone not working; dialed partner's number for her on room phone, no answer & mailbox not open, told pt I would chck back in at 1845 to try again
[2023-11-13] MEDS: metroNIDAZOLE 500 MG/ISO 100ML 500 MG/100 ML BAG 100 MG IVPB (18:40)
[2023-11-13 19:15] LABS: Lactic Acid 10.9 mmol/L (0.4-2.0)
--- NOTE | 2023-11-13 19:17 | ECG_ITS ---
Test Date: 2023-11-13 20:03:46 Measurements Intervals [place] Rate: 134 P: 74 HI: 137 QRS: 87 QRSD: 99 T: 47 QT: 310 QTc: 464 Interpretive Statements SINUS TACHYCARDIA BORDERLINE T WAVE ABNORMALITY- INFERIOR LEADS BASELINE ARTIFACT- I, II, III, AVR, AVL, AVF, V1-V6 ABNORMAL ECG No previous ECG available for comparison Electronically Signed On 11-13-2023 21:20:04 CDT by Enio Hallman D.O.
--- NOTE | 2023-11-13 19:24 | PC.NURSE ---
Report received, pt resting w/ bear warmer hugger on at this time for hypothermia temp gotten rectal. Pt is A&O x3 she has some c/o feeling terrible and having some chest discomfort ERP Dr Vega informed and order obtained. Pt taken to CT for scan per order.
--- NOTE | 2023-11-13 20:00 | PC.NURSE ---
Pts grandparents here to be w/ pt.
--- NOTE | 2023-11-13 21:25 | PC.NURSE ---
CIWA score of 18 completed, pt will be treated for withdrawal. Orders from Dr Vega received.
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
[2023-11-13] MEDS: AZITHROMYCIN 500 MG/NS 250 ML 500 MG/250 ML BAG 250 MG IVPB (21:47)
[2023-11-13] MEDS: LORazepam INJ (*CRX) 2 MG/ML VIAL IV PUSH ×2 (21:47→22:57)
[2023-11-13 21:51] LABS: SARS-CoV-2 RNA PCR Negative (Negative)
[2023-11-13] MEDS: DEXTROSE 5%/LACTATED RINGERS 1,000 ML 999 ML IV CONT (21:51)
[2023-11-13 21:54] LABS: Influenza A QL RT-PCR Negative (Negative); Influenza B QL RT-PCR Negative (Negative); RSV RNA, RT-PCR Negative (Negative)
[2023-11-13 22:08] LABS: Glucose Point of Care 301 mg/dl (65-105)
--- NOTE | 2023-11-13 22:20 | PC.NURSE ---
Call back from Nay paulino Ama, pt will go to ICU-5
[2023-11-13 22:22] LABS: Lactic Acid Reflex 3.5 mmol/L (0.4-2.0)
--- NOTE | 2023-11-13 22:35 | PC.NURSE ---
Pt report given to Derrek Rn in ICU at [place], [facility] paged for transfer.
--- NOTE | 2023-11-19 13:58 | PC.NURSE ---
blood culture reviewed, no growth in 5 days
== END 2023-11-13 23:10 | disposition short-term general hospital (02) ==
PROVIDERS: Emergency Provider Emergency Medicine; PCP Hospitalist
DX: A41.9 Sepsis, unspecified organism (principal); E87.20 Acidosis, unspecified; F10.939 Alcohol use, unspecified with withdrawal, unspecified; Y90.9 Presence of alcohol in blood, level not specified; T68.XXXA Hypothermia, initial encounter; E86.0 Dehydration; F10.929 Alcohol use, unspecified with intoxication, unspecified; J69.0 Pneumonitis due to inhalation of food and vomit; R11.2 Nausea with vomiting, unspecified; F17.210 Nicotine dependence, cigarettes, uncomplicated
CPT/HCPCS: 36415; 71045; 74177; 80053; 80307; 81001; 82948; 83605; 83690; 84703; 85025; 87040; 87637; 93005; 96361; 96365; 96367; 96372; 96375; 96376; 99285; C1751; J0295; J0456; J1836; J2060; J2270; J2405; J3010; J3411; J7030; J7120; J7121; Q9967

== ENCOUNTER 2023-11-14 00:40 | Inpatient (IN) | payer OTHER, SELFPAY ==
[2023-11-14] VITALS (16 sets, daily range): BP systolic 105–152; BP diastolic 59–91; PULSE 91–145; RESP 14–20; TEMP 36.6–38.3; O2SAT 95–100; BMI 21.3
--- NOTE | ~2023-11-14 | XR_ITS ---
EXAMINATION: XR chest 1V portable 11/15/2023 07:52 INDICATION: Pneumonia PROCEDURE: AP portable chest COMPARISON: 11/13/2023 FINDINGS: The lungs are clear. The cardiomediastinal silhouette is within normal limits. There are no pleural effusions. There is no pneumothorax suspected. Central venous catheter tip in the right atrium. There are ports overlying the right upper chest wall. IMPRESSION: 1: NO ACUTE CARDIOPULMONARY DISEASE. Reviewed, dictated and finalized at location B.
--- NOTE | ~2023-11-14 | XR_ITS ---
XR chest 1V portable DATE: 11/16/2023 05:23 INDICATION: Pneumonia TECHNIQUE: Portable AP chest on 11/16/2023 0515 hours COMPARISON: 11/15/2023 portable AP chest 0750 hours FINDINGS: Normal heart size. No hilar or mediastinal enlargement. No pulmonary vascular congestion or pleural effusion, pulmonary infiltrate or consolidation or pneumo thorax is evident. Right internal jugular central venous catheter tip overlies the right atrium. IMPRESSION: No active disease or significant change since 11/15/2023 Reviewed, dictated and finalized at location A.
[2023-11-14 00:20] LABS: Glucose Point of Care 325 mg/dl (65-105)
--- NOTE | 2023-11-14 00:30 | ADMGEN ---
2350: This patient, Elli Gu, was admitted to Intensive Care Unit-5. Patient/family oriented to hospital policies and general routines including ID bracelet, bed and alarms, visiting hours, pain management, procedures, bathroom and other care routines, personal items, smoking policy, room service/diet, and visiting hours. Information on how to activate the Rapid Response Team has been discussed. Patient/Family are encouraged to report perceived risks to care and to ask questions if they do not understand what they are told or what they should do.
--- NOTE | 2023-11-14 00:48 | PM.IMHP ---
H&P: HPI History of Present Illness Date/Time: 11/14/23 00:48 Chief Complaint: Abdominal pain, vomiting Narrative: 27-year-old female with past medical history of reflux esophagitis, chronic alcohol abuse, alcoholic pancreatitis, and prior episodes of alcohol withdrawal with DTs who presented to the hospital at [place] with nausea vomiting and abdominal pain. The patient reports her symptoms started on the evening of the . She was still able to drink some alcohol but was not able to drink as much as usual. She reports that she is drinking 0.5 of a 5th to a full fifth a day. She has been drinking heavily for 5 years. She reports her symptoms started suddenly and involved coughing up and or vomiting blood. She denies any hematochezia or melena. Her pain is diffusely in the anterior abdomen and in the flanks bilaterally. Pain is worse with deep breathing and with palpation of the abdomen. She denies chest pain or shortness of breath but has been persistently tachycardic since she presented to the outside hospital. She denies any known ill contacts. She has been having intermittent dysuria for 1 month. Her urine at the outside hospital was not suggestive of infection. Her initial temperature presentations outside facility was 93?. Patient's temperature at improved to 96? at the time of transfer and by the time she arrived to our facility or temperature was up to 100.6. She received 2 L of LR at the outside hospital 1 L of D5 LR and 1 banana bag. She was noted to be tremulous and have a CIWA score of approximately 15 when staff had called to transfer the patient to our facility. CT scan of the abdomen pelvis with contrast demonstrated hepatomegaly with fatty infiltration no liver, minimal fullness of the renal pelvis bilaterally without evidence of definitive stones, ground-glass appearance in both lung bases more on left than right which could be atelectasis versus early pneumonia. No acute intra-abdominal process noted. CT was personally reviewed and interpreted. The patient had initial mild hypoglycemia on presentation outside facility but after receiving a L D5 LR in bolus form patient's glucoses had climbed to the 300 range. Patient was still persistently tachycardic on arrival to our facility with heart rate of 140. Initial respiratory rate at outside facility was in the mid 20s. The patient reports that she feels anxious and short of breath but her biggest complaint is her abdominal pain which she reports is severe. She is requesting narcotic pain medications. She denies history of narcotic use or abuse. She does take a probiotic at home. Her urine drug screen at the outside facility was positive for marijuana. Her alcohol level to outside facility was 167. Patient had poor vascular access at the outside facility and a right IJ was placed. The patient was reportedly severely volume depleted in a difficulty placing access. Chest x-ray personally reviewed demonstrated is central line in appropriate position. No acute cardiopulmonary process otherwise noted on my review. CBC if from outside facility demonstrated white count of almost 30,000 and hemoglobin of 14 which was up from prior hemoglobins ranging between 9.6 and 13.4 for prior hospitalizations. The patient reports that she has had multiple hospitalizations due to consequences of her chronic alcoholism over the last couple of years. Review of Systems Review of Systems: 12 systems were reviewed with pertinent positives and negatives per HPI. Except as documented in the HPI, all other systems were reviewed and are negative. [facility] Past Medical History Medical History (Updated 11/14/23 @ 01:17 by Carrie Griffiths, DO) Alcohol abuse Alcoholic pancreatitis Anxiety Depression Gastritis Hiatal hernia Mixed hyperlipidemia Post traumatic stress disorder (PTSD) Reflux esophagitis Scoliosis Surgical History Surgical History (Updated 11/14/23 @ 01:14 by Carrie Griffiths,
[2023-11-14] MEDS: PANTOPRAZOLE SODIUM IV 40 MG VIAL IV PUSH ×2 (01:30→08:32)
[2023-11-14] MEDS: THIAMINE HCL 200 MG/2 ML VIAL 100 MG IV PUSH ×2 (01:30→08:32)
[2023-11-14] MEDS: LORazepam INJ (*CRX) 2 MG/ML VIAL 1 MG IV PUSH ×3 (01:30→16:37)
[2023-11-14] MEDS: ONDANSETRON INJ 4 MG/2 ML VIAL IV PUSH ×3 (01:30→16:37)
[2023-11-14] MEDS: AMPICILLIN SULB 3 GM/NS 100 ML 3 GM/100 ML VIAL IVPB ×2 (01:30→04:47)
[2023-11-14] MEDS: SODIUM CHLORIDE 0.9% IV 1,000 ML 150 ML IV CONT (01:30)
[2023-11-14] MEDS: MORPHINE SULFATE (*CRX) 2 MG/ML INJ IV PUSH ×4 (02:00→22:23)
[2023-11-14] MEDS: LORazepam INJ (*CRX) 2 MG/ML VIAL IV PUSH ×3 (02:53→20:35)
[2023-11-14] MEDS: chlordiazePOXIDE (*CRX) 25 MG CAPSULE 50 MG PO (02:53)
[2023-11-14 03:56] LABS: Hematocrit 30.5 % (37.0-47.0); Hemoglobin 10.2 g/dL (12.0-15.0)
[2023-11-14 04:03] LABS: Magnesium 1.3 mg/dL (1.6-2.3); Phosphorus 2.1 mg/dL (2.5-4.5)
[2023-11-14 04:06] LABS: Lactic Acid Reflex 1.8 mmol/L (0.7-2.0)
[2023-11-14 05:05] LABS: Hematocrit 29.6 % (37.0-47.0); Hemoglobin 9.9 g/dL (12.0-15.0); Mean Corpuscular HGB Conc 33.4 g/dl (32-36); Mean Corpuscular Hemoglobin 35.7 pg (26-34); Mean Corpuscular Volume 106.9 fl (80-100); Mean Platelet Volume 9.5 fl (7.4-10.4); Platelet Count Result 234 k/mm3 (150-375); Red Blood Count 2.77 M/mm3 (4.2-5.4); Red Cell Distribution Width 11.9 % (11.5-14.5); White Blood Count 26.4 K/mm3 (4.5-10.0)
[2023-11-14 05:10] LABS: Alanine Aminotransferase 29 U/L (6-35); Alkaline Phosphatase 80 U/L (38-126); Anion Gap 15 mmol/L (4-12); Aspartate Amino Transferase 116 U/L (14-36); Bilirubin,Total 0.9 mg/dL (0.2-1.3); Blood Urea Nitrogen 16 mg/dL (7-17); Calcium 8.5 mg/dL (8.4-10.2); Carbon Dioxide 15 mmol/L (22-30); Chloride 107 mmol/L (98-107); Estimated CRCL calculation 71 ml/min; Estimated Glomerular Filt Rate > 60; Glucose 149 mg/dL (65-110); Potassium 4.2 mmol/L (3.4-5.0); Sodium 137 mmol/L (137-145)
[2023-11-14] MEDS: POTASSIUM/PHOSPHORUS/SODIUM 1.5 GM PACKET 1 PACKET PO (05:15)
[2023-11-14] MEDS: MAGNESIUM SULF 4 GM/WATER100ML 4 GM/100 ML BAG IVPB (05:15)
[2023-11-14 05:25] LABS: Creatinine Urine 22.3 mg/dL; Total Protein Urine Random 11 mg/dL; Urea Random Urine 293 MG/DL
[2023-11-14 05:28] LABS: Sodium Urine Random 123 meq/L
[2023-11-14 05:29] LABS: Band Neutrophils Percent 2 % (0-6); Hypochromasia 1+; Lymphocytes Absolute Manual 1.84 K/mm3 (1.1-4.5); Monocytes Absolute Manual 0.26 K/mm3 (0.1-0.90); Monocytes Percent Manual 1 % (3-9); Neutrophils Absolute Manual 24.28 K/mm3 (1.7-7.2); Neutrophils Percent Manual 90 % (46-73); Platelet Estimate Adequate (Adequate); Schistocytes None Seen; Total Cells Counted 100
[2023-11-14 06:05] LABS: Ethanol < 10 mg/dL (<10)
[2023-11-14 06:07] LABS: MRSA (PCR) NOT DETECTED (NOT DETECTE)
[2023-11-14] MEDS: ACIDOPHILUS/BULGARICUS CHEWABLE TABLET 1 TABLET PO (08:32)
--- NOTE | 2023-11-14 08:38 | WPDCNINT ---
Assessment and Plan Assessment and plan (1) Severe sepsis: Code(s): A41.9 - Sepsis, unspecified organism; R65.20 - Severe sepsis without septic shock Status: Acute Assessment and Plan: Patient presented the outside hospital with upper respiratory tract symptoms including cough, chills. She also complained abdominal pain, and vomiting -patient was found to be hypothermic the outside hospital along with severe lactic acid level of 10.9, leukocytosis, tachycardia -likely source but possibly lungs/aspiration pneumonia night is/pneumonia -blood pressures and temperature is a within normal limits -UA was NOT reflective of a UTI, -chest x-ray and CT scan of the abdomen and pelvis as under: Likely pneumonia -11/12: Blood cultures have been obtained and pending -started patient on vancomycin, cefepime and Flagyl (11/13) -discontinued Unasyn -started patient on bicarb infusion due to metabolic acidosis -lactic acidosis has resolved as patient received adequate amount of IV fluids 11/12: CT scan of the abdomen and pelvis showed hepatomegaly with fatty infiltration of the liver, minimal fullness of the renal pelvis bilaterally, no definite stone seen. Ground-glass appearance in both lower more on the left side which may indicate dependent atelectatic changes versus early pneumonia. Clinical correlation advised. No evidence of appendicitis, diverticulitis or intestinal obstruction. 11/12: Chest x-ray shows right central line with tip in the right atrium, no acute cardiopulmonary pathology (2) Pneumonia: Qualifiers: Aspiration pneumonia type: due to vomit Laterality: bilateral Lung location: lower lobe of lung Pneumonia type: aspiration pneumonia Qualified Code(s): J69.0 - Pneumonitis due to inhalation of food and vomit Code(s): J18.9 - Pneumonia, unspecified organism Status: Acute Assessment and Plan: Pneumonia seen on CT scan of the abdomen and pelvis in the lower lobes -if patient does not improve will obtain a CT scan of the chest -continue antibiotics as above - (3) Electrolyte imbalance: Code(s): E87.8 - Other disorders of electrolyte and fluid balance, not elsewhere classified Status: Acute Assessment and Plan: Replace magnesium and phosphorus (4) Metabolic acidosis: Code(s): E87.20 - Acidosis, unspecified Status: Acute Assessment and Plan: Metabolic acidosis likely related to lactic acidosis and alcoholic ketoacidosis -lactic acidosis has resolved -patient started on bicarb infusion -will repeat BMP later today (5) Acute alcohol intoxication delirium with moderate or severe use disorder: Code(s): F10.221 - Alcohol dependence with intoxication delirium Status: Acute Assessment and Plan: Patient with history of alcohol dependence, drinks a 5th of vodka daily and sometimes half of a 5th of vodka daily -LFTs were elevated on admission, trending down -CT scan of the abdomen and pelvis showed hepatomegaly with fatty infiltration of the liver -will continue to trend LFTs (6) Abdominal pain: Qualifiers: Abdominal location: lower abdomen, unspecified Qualified Code(s): R10.30 - Lower abdominal pain, unspecified Code(s): R10.9 - Unspecified abdominal pain Status: Inactive Assessment and Plan: Abdominal pain could be related to metabolic acidosis, -lipase was within normal limits -CT scan of the abdomen and pelvis as above, no obvious pathology was noted Plan DVT prophylaxis: Enoxaparin Stress ulcer prophylaxis: Famotidine Nutrition: NPO except ice chips, if she feels better will increase to clear liquid diet and advanced as tolerated Code Status: Full code Critical Care Time Spent: 49 minutes Due to a high probability of clinically significant, life threatening deterioration, the patient required my highest level of preparedness to intervene emergently and I personally spent this critical care
[2023-11-14] MEDS: CEFEPIME 2 GM/NS 50 ML 2 GM/50 ML BAG IVPB ×2 (08:44→17:11)
[2023-11-14] MEDS: SODIUM BICARBONATE 8.4% 50 MEQ/50 ML SYRINGE 100 MEQ IV PUSH (08:49)
[2023-11-14] MEDS: ACETAMINOPHEN 500 MG TABLET PO ×2 (09:06→17:15)
[2023-11-14] MEDS: metroNIDAZOLE 500 MG/ISO 100ML 500 MG/100 ML BAG 100 MG IVPB ×2 (09:07→17:10)
[2023-11-14] MEDS: FAMOTIDINE 20 MG/2 ML VIAL IV PUSH ×2 (09:08→20:34)
[2023-11-14] MEDS: ENOXAPARIN 40 MG/0.4 ML SYRINGE SUB-Q (09:08)
[2023-11-14] MEDS: SODIUM BICARBONATE 8.4% 150 MEQ in DEXTROSE 5% 1,000 ML 950 ML 100 MEQ IV CONT (09:58)
[2023-11-14] MEDS: VANCOMYCIN 1,250 MG/NS 250 ML 1,250 MG/250 ML BAG 166.67 MG IVPB (10:07)
[2023-11-14 12:05] LABS: Glucose Point of Care 230 mg/dl (65-105)
--- NOTE | 2023-11-14 16:13 | PC.NURSE ---
Jim, drug and alcohol rehab rep, in for patient consult. Resources provided.
[2023-11-14 16:52] LABS: Anion Gap 8 mmol/L (4-12); Blood Urea Nitrogen 10 mg/dL (7-17); Carbon Dioxide 31 mmol/L (22-30); Chloride 93 mmol/L (98-107); Estimated CRCL calculation 108 ml/min; Estimated Glomerular Filt Rate > 60; Glucose 150 mg/dL (65-110); Sodium 132 mmol/L (137-145)
[2023-11-14] MEDS: POTASSIUM CHLORIDE 20 MEQ ER TABLET 40 MEQ PO (17:10)
[2023-11-15] VITALS (18 sets, daily range): BP systolic 92–140; BP diastolic 68–106; PULSE 85–151; RESP 12–19; TEMP 36.4–36.9; O2SAT 93–100
[2023-11-15] MEDS: CEFEPIME 2 GM/NS 50 ML 2 GM/50 ML BAG IVPB ×3 (00:27→17:20)
[2023-11-15] MEDS: ACETAMINOPHEN 500 MG TABLET PO ×2 (00:33→13:35)
[2023-11-15] MEDS: LORazepam INJ (*CRX) 2 MG/ML VIAL 1 MG IV PUSH ×3 (00:38→15:52)
[2023-11-15] MEDS: metroNIDAZOLE 500 MG/ISO 100ML 500 MG/100 ML BAG 100 MG IVPB ×3 (02:00→17:20)
[2023-11-15] MEDS: MORPHINE SULFATE (*CRX) 2 MG/ML INJ IV PUSH ×5 (02:26→22:25)
[2023-11-15] MEDS: VANCOMYCIN 1,000 MG/NS 250 ML 1,000 MG/250 ML BAG 250 MG IVPB ×2 (05:37→17:21)
[2023-11-15 05:55] LABS: Lactic Acid Reflex 1.4 mmol/L (0.7-2.0)
[2023-11-15 05:56] LABS: Estimated CRCL calculation 108 ml/min; Estimated Glomerular Filt Rate > 60
[2023-11-15 06:50] LABS: Glucose Point of Care 109 mg/dl (65-105)
[2023-11-15] MEDS: ACIDOPHILUS/BULGARICUS CHEWABLE TABLET 1 TABLET PO (08:02)
[2023-11-15] MEDS: chlordiazePOXIDE (*CRX) 25 MG CAPSULE PO (08:02)
[2023-11-15] MEDS: ENOXAPARIN 40 MG/0.4 ML SYRINGE SUB-Q (08:03)
[2023-11-15] MEDS: FAMOTIDINE 20 MG/2 ML VIAL IV PUSH (08:04)
[2023-11-15] MEDS: THIAMINE HCL 200 MG/2 ML VIAL 100 MG IV PUSH (08:04)
[2023-11-15 08:09] LABS: Basophils Percent Auto 0.4 % (0.2-1.2); Eosinophils Absolute Auto 0.2 K/mm3 (0-0.3); Eosinophils Percent Auto 1.8 % (0-4.4); Hematocrit 29.1 % (37.0-47.0); Hemoglobin 9.7 g/dL (12.0-15.0); Immature Granulocyte Absolute 0.04 K/mm3 (0.00-0.031); Immature Granulocyte Percent A 0.4 % (0-0.5); Lymphocytes Absolute Auto 1.78 K/mm3 (0.9-3.2); Lymphocytes Percent Auto 18.6 % (18.3-44.2); Mean Corpuscular HGB Conc 33.3 g/dl (32-36); Mean Corpuscular Hemoglobin 34.6 pg (26-34); Mean Corpuscular Volume 103.9 fl (80-100); Mean Platelet Volume 9.5 fl (7.4-10.4); Monocytes Absolute Auto 0.5 K/mm3 (0.1-0.6); Monocytes Percent Auto 5.3 % (2.6-8.5); Neutrophils Percent Auto 73.5 % (45.5-73.1); Platelet Count Result 198 k/mm3 (150-375); Red Cell Distribution Width 12.1 % (11.5-14.5); White Blood Count 9.6 K/mm3 (4.5-10.0)
[2023-11-15 08:23] LABS: Alanine Aminotransferase 24 U/L (6-35); Albumin Level 3.5 g/dL (3.5-5.1); Alkaline Phosphatase 77 U/L (38-126); Anion Gap 7 mmol/L (4-12); Aspartate Amino Transferase 71 U/L (14-36); Bilirubin,Total 0.5 mg/dL (0.2-1.3); Blood Urea Nitrogen 6 mg/dL (7-17); Calcium 8.3 mg/dL (8.4-10.2); Carbon Dioxide 30 mmol/L (22-30); Chloride 96 mmol/L (98-107); Estimated CRCL calculation 108 ml/min; Estimated Glomerular Filt Rate > 60; Glucose 116 mg/dL (65-110); Magnesium 1.9 mg/dL (1.6-2.3); Phosphorus 1.5 mg/dL (2.5-4.5); Potassium 3.1 mmol/L (3.4-5.0); Sodium 133 mmol/L (137-145)
--- NOTE | 2023-11-15 09:13 | WPDINTPN ---
Progress Note: A&P Assessment and Plan (1) Severe sepsis: Code(s): A41.9 - Sepsis, unspecified organism; R65.20 - Severe sepsis without septic shock Status: Acute Assessment and Plan: Patient presented the outside hospital with upper respiratory tract symptoms including cough, chills. She also complained abdominal pain, and vomiting -patient was found to be hypothermic the outside hospital along with severe lactic acid level of 10.9, leukocytosis, tachycardia -likely source but possibly lungs/aspiration pneumonia night is/pneumonia -blood pressures and temperature is a within normal limits -UA was NOT reflective of a UTI, -chest x-ray and CT scan of the abdomen and pelvis as under: Likely pneumonia -11/12: Preliminary blood cultures are negative x2 -continue vancomycin, cefepime and Flagyl (11/13) -discontinued Unasyn -of bicarb infusion -lactic acidosis has resolved as patient received adequate amount of IV fluids -11/13: White blood count has resolved 11/12: CT scan of the abdomen and pelvis showed hepatomegaly with fatty infiltration of the liver, minimal fullness of the renal pelvis bilaterally, no definite stone seen. Ground-glass appearance in both lower more on the left side which may indicate dependent atelectatic changes versus early pneumonia. Clinical correlation advised. No evidence of appendicitis, diverticulitis or intestinal obstruction. 11/12: Chest x-ray shows right central line with tip in the right atrium, no acute cardiopulmonary pathology (2) Pneumonia: Qualifiers: Pneumonia type: aspiration pneumonia Aspiration pneumonia type: due to vomit Laterality: bilateral Lung location: lower lobe of lung Qualified Code(s): J69.0 - Pneumonitis due to inhalation of food and vomit Code(s): J18.9 - Pneumonia, unspecified organism Status: Acute Assessment and Plan: Pneumonia seen on CT scan of the abdomen and pelvis in the lower lobes -if patient does not improve will obtain a CT scan of the chest -continue antibiotics as above -11/13: Chest x-ray clear this morning (3) Electrolyte imbalance: Code(s): E87.8 - Other disorders of electrolyte and fluid balance, not elsewhere classified Status: Acute Assessment and Plan: Replace potassium, magnesium and phosphorus (4) Metabolic acidosis: Code(s): E87.20 - Acidosis, unspecified Status: Acute Assessment and Plan: Metabolic acidosis likely related to lactic acidosis and alcoholic ketoacidosis -lactic acidosis has resolved -patient started on bicarb infusion -Resolved (5) Acute alcohol intoxication delirium with moderate or severe use disorder: Code(s): F10.221 - Alcohol dependence with intoxication delirium Status: Acute Assessment and Plan: Patient with history of alcohol dependence, drinks a 5th of vodka daily and sometimes half of a 5th of vodka daily -LFTs were elevated on admission, -CT scan of the abdomen and pelvis showed hepatomegaly with fatty infiltration of the liver -LFTs continue trend down -will continue to trend LFTs (6) Abdominal pain: Qualifiers: Abdominal location: lower abdomen, unspecified Qualified Code(s): R10.30 - Lower abdominal pain, unspecified Code(s): R10.9 - Unspecified abdominal pain Status: Inactive Assessment and Plan: Abdominal pain could be related to metabolic acidosis, -lipase was within normal limits -CT scan of the abdomen and pelvis as above, no obvious pathology was noted Plan DVT prophylaxis: Enoxaparin Stress ulcer prophylaxis: Famotidine Nutrition: Regular diet Code Status: Full code Critical Care Time Spent: 32 minutes Due to a high probability of clinically significant, life threatening deterioration, the patient required my highest level of preparedness to intervene emergently and I personally spent this critical care time directly and personally managing the patient. This
[2023-11-15] MEDS: POTASSIUM PHOS/SODIUM PHOS 250 MG TABLET PO (09:48)
[2023-11-15] MEDS: KCL 40 MEQ/WATER 100 ML 100 ML 25 ML IVPB (09:48)
[2023-11-15] MEDS: MAGNESIUM SULF 2 GM/WATER 50ML 2 GM/50 ML BAG IVPB (09:49)
[2023-11-15 11:37] LABS: Glucose Point of Care 164 mg/dl (65-105)
[2023-11-15] MEDS: CENTRAL LINE FLUSH 10 ML IV PUSH ×2 (13:14→21:45)
--- NOTE | 2023-11-15 14:07 | PM.IMPN ---
Progress Note: A&P Assessment and Plan (1) Metabolic acidosis: Code(s): E87.20 - Acidosis, unspecified Status: Acute (2) Electrolyte imbalance: Code(s): E87.8 - Other disorders of electrolyte and fluid balance, not elsewhere classified Status: Acute (3) Pneumonia: Qualifiers: Pneumonia type: aspiration pneumonia Aspiration pneumonia type: due to vomit Laterality: bilateral Lung location: lower lobe of lung Qualified Code(s): J69.0 - Pneumonitis due to inhalation of food and vomit Code(s): J18.9 - Pneumonia, unspecified organism Status: Acute (4) Severe sepsis: Code(s): A41.9 - Sepsis, unspecified organism; R65.20 - Severe sepsis without septic shock Status: Acute (5) Gastritis: Code(s): K29.70 - Gastritis, unspecified, without bleeding Status: Acute (6) Sepsis: Qualifiers: Sepsis type: sepsis due to unspecified organism Sepsis acute organ dysfunction status: without acute organ dysfunction Qualified Code(s): A41.9 - Sepsis, unspecified organism Code(s): A41.9 - Sepsis, unspecified organism Status: Acute (7) Hiatal hernia: Code(s): K44.9 - Diaphragmatic hernia without obstruction or gangrene Status: Acute (8) Reflux esophagitis: Code(s): K21.00 - Gastro-esophageal reflux disease with esophagitis, without bleeding Status: Acute (9) Anemia: Qualifiers: Anemia type: unspecified type Qualified Code(s): D64.9 - Anemia, unspecified Code(s): D64.9 - Anemia, unspecified Status: Acute (10) Hematemesis: Qualifiers: Nausea presence: with nausea Qualified Code(s): K92.0 - Hematemesis Code(s): K92.0 - Hematemesis Status: Acute (11) Hepatomegaly: Code(s): R16.0 - Hepatomegaly, not elsewhere classified Status: Acute Plan This is a very pleasant 27-year-old female with a longstanding history of heavy alcohol abuse, gastritis, reflux esophagitis, hepatomegaly, marijuana abuse, vaping abuse with nicotine. Patient presented with complaints of cough chills and nausea diarrhea and abdominal pain. She is found to have severe sepsis and pneumonia. Patient doing well on 2nd day of admission 11/15/2023. She episode of bloody vomiting which was very large with clots mixed in. Denies any bowel movements on the . The patient had tachycardia immediately afterwards which resolved. She was anxious during that episode. Hemoglobin is stable in the 9's. She has been started on normal saline at 150 cc/hour, bolus with 80 mg IV x1 Protonix with 8 milligrams/hour Protonix infusion to follow. She was bolused with 50 mcg of octreotide with 50 micrograms/hour to follow. The patient will remain in ICU under the care of electrician supervisor substation. Discussion held with sepsis and Dr. Sanchez with GI. Patient will be made NPO. Lovenox discontinue. Continue trending hemoglobin. If patient has further episodes or becomes unstable then another call to Dr. Sanchez's warranted for possible emergent intervention. Pending CBC, CMP, magnesium, phosphorus, and coag panel. Full code. SCDs. Critical condition in ICU. Extensive counseling on polysubstance abuse has been conducted. Consult social workers to rib provided resources. Continue CIWA protocol with scheduled Librium and p.r.n. Ativan. Patient is independent at baseline. She lives with her grandparents. She feels safe at home. Denies acute stressors other than life . Denies suicidal or homicidal ideation. Patient reports not having pharmacological treatment for depression and anxiety currently. She is not seeing out psychosocial therapy either. She prefers to follow-up with primary care physician for this and would like to focus on other issues at the moment. Subjective Date/time seen: 11/15/23 14:07 Interval history: NAOE, until 1400 when she had a large blood vomit with clots. Pt seen in ICU-5. an
[2023-11-15 14:16] LABS: Hematocrit 26.9 % (37.0-47.0); Hemoglobin 9.3 g/dL (12.0-15.0); Mean Corpuscular HGB Conc 34.6 g/dl (32-36); Mean Corpuscular Hemoglobin 35.8 pg (26-34); Mean Corpuscular Volume 103.5 fl (80-100); Mean Platelet Volume 9.4 fl (7.4-10.4); Platelet Count Result 180 k/mm3 (150-375); Red Cell Distribution Width 11.9 % (11.5-14.5); White Blood Count 9.6 K/mm3 (4.5-10.0)
[2023-11-15] MEDS: PANTOPRAZOLE SODIUM IV 40 MG VIAL 80 MG IV PUSH (14:32)
[2023-11-15] MEDS: SODIUM CHLORIDE 0.9% IV 1,000 ML 150 ML IV CONT ×2 (14:33→21:44)
[2023-11-15 14:34] LABS: Alanine Aminotransferase 24 U/L (6-35); Albumin Level 3.8 g/dL (3.5-5.1); Alkaline Phosphatase 84 U/L (38-126); Anion Gap 9 mmol/L (4-12); Aspartate Amino Transferase 64 U/L (14-36); Bilirubin,Total 0.6 mg/dL (0.2-1.3); Blood Urea Nitrogen 6 mg/dL (7-17); Calcium 8.3 mg/dL (8.4-10.2); Carbon Dioxide 28 mmol/L (22-30); Chloride 94 mmol/L (98-107); Estimated CRCL calculation 108 ml/min; Estimated Glomerular Filt Rate > 60; Glucose 159 mg/dL (65-110); Magnesium 2.3 mg/dL (1.6-2.3); Phosphorus 1.3 mg/dL (2.5-4.5); Potassium 3.2 mmol/L (3.4-5.0); Sodium 131 mmol/L (137-145)
[2023-11-15 14:45] LABS: Iron 132 ug/dL (37-170)
[2023-11-15 14:55] LABS: Prothrombin Time 14.1 Seconds (11.1-14.7)
[2023-11-15 14:55] LABS: Percent Iron Saturation 49 % (20-50)
[2023-11-15 14:56] LABS: Partial Thromboplastin Time 34.4 Seconds (22.3-36.8)
[2023-11-15] MEDS: OCTREOTIDE ACETATE 50 MCG/ML VIAL IV PUSH (15:03)
[2023-11-15] MEDS: PANTOPRAZOLE SODIUM IV 80 MG in SODIUM CHLORIDE 0.9% IV 500 ML 50 MG IV CONT (15:03)
[2023-11-15 15:40] LABS: Folic Acid 5.1 ng/mL (2.76->20)
[2023-11-15] MEDS: ONDANSETRON INJ 4 MG/2 ML VIAL IV PUSH (17:26)
[2023-11-15] MEDS: SODIUM CHLORIDE 0.9% IV 500 ML IV CONT (18:15)
[2023-11-15] MEDS: METOCLOPRAMIDE HCL INJ 10 MG/2 ML VIAL IV PUSH (21:44)
[2023-11-15 23:54] LABS: Hemoglobin 4.9 g/dL (12.0-15.0)
[2023-11-15 23:55] LABS: Hematocrit 14.6 % (37.0-47.0)
[2023-11-16] VITALS (28 sets, daily range): BP systolic 91–140; BP diastolic 54–113; PULSE 77–122; RESP 15–30; TEMP 36.2–37.3; O2SAT 90–100
[2023-11-16] MEDS: PANTOPRAZOLE SODIUM IV 80 MG in SODIUM CHLORIDE 0.9% IV 500 ML 50 MG IV CONT ×3 (00:19→22:25)
[2023-11-16] MEDS: CEFEPIME 2 GM/NS 50 ML 2 GM/50 ML BAG IVPB ×3 (00:35→16:05)
[2023-11-16] MEDS: metroNIDAZOLE 500 MG/ISO 100ML 500 MG/100 ML BAG 100 MG IVPB ×3 (01:23→17:36)
[2023-11-16] MEDS: ACETAMINOPHEN 500 MG TABLET PO (01:29)
[2023-11-16] MEDS: SODIUM CHLORIDE 0.9% IV 250 ML 30 ML IV CONT (01:42)
[2023-11-16 02:11] LABS: Glucose Point of Care 158 mg/dl (65-105)
[2023-11-16] MEDS: MORPHINE SULFATE (*CRX) 2 MG/ML INJ IV PUSH ×4 (02:24→19:40)
[2023-11-16 04:28] LABS: Basophils Absolute Auto 0.1 K/mm3 (0.0-0.1); Basophils Percent Auto 0.8 % (0.2-1.2); Eosinophils Percent Auto 0.6 % (0-4.4); Immature Granulocyte Absolute 0.03 K/mm3 (0.00-0.031); Immature Granulocyte Percent A 0.5 % (0-0.5); Lymphocytes Absolute Auto 1.47 K/mm3 (0.9-3.2); Lymphocytes Percent Auto 23.8 % (18.3-44.2); Mean Corpuscular HGB Conc 33.3 g/dl (32-36); Mean Corpuscular Volume 102.1 fl (80-100); Mean Platelet Volume 10.1 fl (7.4-10.4); Monocytes Absolute Auto 0.6 K/mm3 (0.1-0.6); Monocytes Percent Auto 8.9 % (2.6-8.5); Neutrophils Percent Auto 65.4 % (45.5-73.1); Platelet Count Result 102 k/mm3 (150-375); Red Blood Count 1.91 M/mm3 (4.2-5.4); White Blood Count 6.2 K/mm3 (4.5-10.0)
[2023-11-16] MEDS: SODIUM CHLORIDE 0.9% IV 1,000 ML 150 ML IV CONT (04:31)
[2023-11-16 04:38] LABS: Alanine Aminotransferase 15 U/L (6-35); Albumin Level 2.5 g/dL (3.5-5.1); Alkaline Phosphatase 49 U/L (38-126); Anion Gap 6 mmol/L (4-12); Aspartate Amino Transferase 31 U/L (14-36); Bilirubin,Total 0.8 mg/dL (0.2-1.3); Blood Urea Nitrogen 6 mg/dL (7-17); Calcium 7.2 mg/dL (8.4-10.2); Carbon Dioxide 24 mmol/L (22-30); Chloride 104 mmol/L (98-107); Estimated CRCL calculation 132 ml/min; Estimated Glomerular Filt Rate > 60; Glucose 156 mg/dL (65-110); Magnesium 1.7 mg/dL (1.6-2.3); Phosphorus 1.6 mg/dL (2.5-4.5); Potassium 3.9 mmol/L (3.4-5.0); Sodium 134 mmol/L (137-145)
[2023-11-16 04:39] LABS: INR 1.2
[2023-11-16 04:46] LABS: Vancomycin Trough 7.8 ug/mL (10.0-20.0)
[2023-11-16 04:48] LABS: Hematocrit 19.5 % (37.0-47.0); Hemoglobin 6.5 g/dL (12.0-15.0)
[2023-11-16] MEDS: LORazepam INJ (*CRX) 2 MG/ML VIAL 1 MG IV PUSH ×2 (04:52→12:27)
[2023-11-16] MEDS: VANCOMYCIN 1,250 MG/NS 250 ML 1,250 MG/250 ML BAG 166.67 MG IVPB (06:18)
[2023-11-16] MEDS: CENTRAL LINE FLUSH 10 ML IV PUSH ×2 (06:18→22:25)
--- NOTE | 2023-11-16 06:45 | PC.NURSE ---
Report given to DINORA Fitzgerald in the GI lab
[2023-11-16] MEDS: LACTATED RINGERS 1,000 ML 150 ML IV CONT (07:32)
--- NOTE | 2023-11-16 07:32 | WPDANESEPPF ---
Anes - Initial Pre Proc Eval Procedure: Operation Date: 11/16/23 07:30 Proposed Procedures p Esophagogastroduodenoscopy - Royal Perez MD Date/Time: 11/16/23 07:32 Surgeon: Carrie Griffiths DO Pre Op Diagnosis: Sepsis, Pneumonia Patient Data Age: 27 Gender: F Height: 1.55 m Weight: 53.9 kg Last Vital Signs Temp 36.2 C L 11/16/23 07:26 Pulse 80 11/16/23 07:26 Resp 18 11/16/23 07:26 BP 126/92 H 11/16/23 07:26 Pulse Ox 100 11/16/23 07:26 O2 Del Method Room Air 11/16/23 07:26 FiO2 21 11/15/23 09:07 Allergies Allergy/AdvReac Type Severity Reaction Status Date / Time latex Allergy Rash Verified 11/13/23 13:18 Home Medications Medication Instructions Recorded Confirmed Type Lactobacillus rhamnosus GG 10 1 cap PO DAILY 11/14/23 11/14/23 History billion cell capsule (Culturelle) Laboratory Tests 11/15/23 11/15/23 11/15/23 08:00 11:32 14:10 WBC 9.6 K/mm3 9.6 K/mm3 (4.5-10.0) (4.5-10.0) RBC 2.80 L M/mm3 2.60 L M/mm3 (4.2-5.4) (4.2-5.4) Hgb 9.7 L g/dL 9.3 L g/dL (12.0-15.0) (12.0-15.0) Hct 29.1 L % 26.9 L % (37.0-47.0) (37.0-47.0) MCV 103.9 H fl 103.5 H fl (80-100) (80-100) MCH 34.6 H pg 35.8 H pg (26-34) (26-34) MCHC 33.3 g/dl 34.6 g/dl (32-36) (32-36) RDW 12.1 % 11.9 % (11.5-14.5) (11.5-14.5) Plt Count 198 k/mm3 180 k/mm3 (150-375) (150-375) MPV 9.5 fl 9.4 fl (7.4-10.4) (7.4-10.4) Immature Gran % (Auto) 0.4 % (0-0.5) Neut % (Auto) 73.5 H % (45.5-73.1) Lymph % (Auto) 18.6 % (18.3-44.2) Sevier % (Auto) 5.3 % (2.6-8.5) Eos % (Auto) 1.8 % (0-4.4) Baso % (Auto) 0.4 % (0.2-1.2) Lymph # (Auto) 1.78 K/mm3 (0.9-3.2) Sevier # (Auto) 0.5 K/mm3 (0.1-0.6) Eos # (Auto) 0.2 K/mm3 (0-0.3) Baso # (Auto) 0.0 K/mm3 (0.0-0.1) Abs Immat Gran (auto) 0.04 H K/mm3 (0.00-0.031) Absolute Neuts (auto) 7.0 H K/mm3 (1.3-6.7) Absolute Nucleated RBC 0.000 K/mm3 (0.0-0.012) Nucleated RBC % 0.0 % (0.0-0.2) PT INR APTT Sodium 133 L mmol/L (137-145) Potassium 3.1 L mmol/L (3.4-5.0) Chloride 96 L mmol/L (98-107) Carbon Dioxide 30 mmol/L (22-30) Anion Gap 7 mmol/L (4-12) BUN 6 L mg/dL (7-17) Creatinine 0.50 L mg/dL (0.7-1.0) Estim Creat Clear Calc 108 ml/min Estimated GFR > 60 (59 - ) Glucose 116 H mg/dL (65-110) POC Capillary Glucose 164 H mg/dl (65-105) Calcium 8.3 L mg/dL (8.4-10.2) Phosphorus 1.5 L mg/dL (2.5-4.5) Magnesium 1.9 mg/dL (1.6-2.3) Iron TIBC % Saturation Ferritin Total Bilirubin 0.5 mg/dL (0.2-1.3) AST 71 H U/L (14-36) ALT 24 U/L (6-35) Alkaline Phosphatase 77 U/L (38-126) Total Protein 6.0 L g/dL (6.3-8.2) Albumin 3.5 g/dL (3.5-5.1) Vitamin B12 Folate Vancomycin Trough Blood Type Antibody Screen Crossmatch 11/15/23 11/15/23 11/15/23 14:18 14:31 23:39 WBC RBC Hgb 4.9 L* D g/dL (12.0-15.0) Hct 14.6 L* % (37.0-47.0) MCV MCH MCHC RDW Plt Count MPV Immature Gran % (Auto) Neut % (Auto) Lymph % (Auto) Sevier % (Auto) Eos % (Auto) Baso % (Auto) Lymph # (Auto) Sevier # (Auto) Eos # (Auto) Baso # (Auto) Abs Immat Gran (auto) Absolute Neuts (auto)
--- NOTE | 2023-11-16 07:35 | PC.NURSE ---
0715 off floor to GI lab
--- NOTE | 2023-11-16 07:39 | PC.NURSE ---
0715 Vancomycin on standby while in GI lab
--- NOTE | 2023-11-16 07:39 | WPDGICN ---
Assessment and Plan Assessment and plan (1) Hematemesis: Qualifiers: Nausea presence: with nausea Qualified Code(s): K92.0 - Hematemesis Code(s): K92.0 - Hematemesis Status: Acute Assessment and Plan: will proceed with urgent EGD, noted dramatic drop of hgb, she is in ICU and received blood transfusion, also on iv octreotide and protonix keep hgb>7 differential include ulcer, esophagitis, tear, varices (2) Melena: Code(s): K92.1 - Melena Status: Acute Assessment and Plan: egd today (3) Acute blood loss anemia: Code(s): D62 - Acute posthemorrhagic anemia Status: Acute Assessment and Plan: transfuse to keep hgb>7 (4) Severe sepsis: Code(s): A41.9 - Sepsis, unspecified organism; R65.20 - Severe sepsis without septic shock Status: Acute Assessment and Plan: in icu, started on iv abx, possible pneumonia (5) Pneumonia: Qualifiers: Pneumonia type: aspiration pneumonia Aspiration pneumonia type: due to vomit Laterality: bilateral Lung location: lower lobe of lung Qualified Code(s): J69.0 - Pneumonitis due to inhalation of food and vomit Code(s): J18.9 - Pneumonia, unspecified organism Status: Acute (6) Hepatomegaly: Code(s): R16.0 - Hepatomegaly, not elsewhere classified Status: Acute (7) Metabolic acidosis: Code(s): E87.20 - Acidosis, unspecified Status: Acute (8) Alcohol withdrawal syndrome with complication: Code(s): F10.939 - Alcohol use, unspecified with withdrawal, unspecified Status: Acute Assessment and Plan: she is an alcoholic thiamine, ciwa protocol GI Consult Note Consult date/time: 11/16/23 07:39 Reason for consult: hematemesis, alcoholic HPI: Elli Gu is a 27 year old female with history of anxiety, depression, PTSD, and chronic alcoholism who I met her 2021 when had pancreatitis, EGD at that time showed grade II esophagitis. She went initially to ED at the [facility] in [facility] with upper respiratory symptoms including cough, chills, but also had multiple episodes of nausea and vomiting with epigastric discomfort, moderate intensive and worse with deep breath. She still drinks one fifth of vodka daily. At the outside hospital ER her WBC count was 29.8, hemoglobin 14.0, platelets 434. Sodium 137, potassium 4.5, CO2 5, BUN 18 creatinine 0.95, glucose of 66. Also elevated lactic. CT scan of the abdomen and pelvis showed hepatomegaly with fatty infiltration of the liver, minimal fullness of the renal pelvis bilaterally, no definite stone seen. Ground-glass appearance in both lower more on the left side which may indicate dependent atelectatic changes versus early pneumonia. Then she started having hematemesis with melena and hgb slowly trending down to 4.9, received blood transfusion, given blood transfusion, started on iv protonix and octreotide. Review of Systems Constitutional: Constitutional: Reports chills and Reports weakness Eyes: Eyes: Denies blurry vision ENT: Reports Normal hearing present Cardiovascular: Cardiovascular: Reports lightheadedness Respiratory: Respiratory: Denies cough Gastrointestinal: Gastrointestinal: Reports abdominal pain, Reports melena, Reports nausea, Reports vomiting and Reports hematemesis Genitourinary: Genitourinary: Denies hematuria Musculoskeletal: Musculoskeletal: Denies neck pain Integumentary/Breasts: Skin/Breast: Denies rash Neurologic: Denies confusion Psychiatric: Psychiatric: Reports anxiety PMFSH Past Medical History Medical History (Updated 11/16/23 @ 08:57 by Royal Perez MD) Acute blood loss anemia Alcohol abuse Alcoholic pancreatitis Anxiety Depression Gastritis Hiatal hernia Melena Mixed hyperlipidemia Post traumatic stress disorder (PTSD) Reflux esophagitis Scoliosis Surgical History Surgical History (Reviewed 11/16/23 @ 07:33 b
[2023-11-16 08:02] LABS: Glucose Point of Care 107 mg/dl (65-105)
[2023-11-16] MEDS: SODIUM PHOSPHATE 20 MM in DEXTROSE 5% IN WATER 250 ML 50 MM IVPB (08:38)
[2023-11-16 08:52] LABS: Glucose Point of Care 127 mg/dl (65-105)
[2023-11-16 08:56] LABS: Hemoglobin 8.6 g/dL (12.0-15.0); Immature Platelet Fraction Pct 6.2 % (0.9-11.2); Mean Corpuscular HGB Conc 33.1 g/dl (32-36); Mean Corpuscular Hemoglobin 32.7 pg (26-34); Mean Corpuscular Volume 98.9 fl (80-100); Mean Platelet Volume 10.4 fl (7.4-10.4); Platelet Count Result 106 k/mm3 (150-375); Red Blood Count 2.63 M/mm3 (4.2-5.4); Red Cell Distribution Width 15.5 % (11.5-14.5); White Blood Count 6.3 K/mm3 (4.5-10.0)
[2023-11-16 09:06] LABS: Magnesium 1.8 mg/dL (1.6-2.3)
[2023-11-16 09:10] LABS: INR 1.1; Partial Thromboplastin Time 28.5 Seconds (22.3-36.8)
[2023-11-16 09:16] LABS: Fibrinogen 156 mg/dl (215-510)
[2023-11-16 09:20] LABS: D Dimer 0.45 ug/mL (<0.48)
[2023-11-16] MEDS: chlordiazePOXIDE (*CRX) 25 MG CAPSULE PO (09:35)
[2023-11-16] MEDS: ACIDOPHILUS/BULGARICUS CHEWABLE TABLET 1 TABLET PO (09:35)
[2023-11-16] MEDS: THIAMINE HCL 200 MG/2 ML VIAL 100 MG IV PUSH (09:35)
--- NOTE | 2023-11-16 12:19 | PM.IMPN ---
Progress Note: A&P Assessment and Plan (1) Metabolic acidosis: Code(s): E87.20 - Acidosis, unspecified Status: Acute (2) Electrolyte imbalance: Code(s): E87.8 - Other disorders of electrolyte and fluid balance, not elsewhere classified Status: Acute (3) Pneumonia: Qualifiers: Pneumonia type: aspiration pneumonia Aspiration pneumonia type: due to vomit Laterality: bilateral Lung location: lower lobe of lung Qualified Code(s): J69.0 - Pneumonitis due to inhalation of food and vomit Code(s): J18.9 - Pneumonia, unspecified organism Status: Acute (4) Severe sepsis: Code(s): A41.9 - Sepsis, unspecified organism; R65.20 - Severe sepsis without septic shock Status: Acute (5) Gastritis: Code(s): K29.70 - Gastritis, unspecified, without bleeding Status: Acute (6) Sepsis: Qualifiers: Sepsis type: sepsis due to unspecified organism Sepsis acute organ dysfunction status: without acute organ dysfunction Qualified Code(s): A41.9 - Sepsis, unspecified organism Code(s): A41.9 - Sepsis, unspecified organism Status: Acute (7) Hiatal hernia: Code(s): K44.9 - Diaphragmatic hernia without obstruction or gangrene Status: Acute (8) Reflux esophagitis: Code(s): K21.00 - Gastro-esophageal reflux disease with esophagitis, without bleeding Status: Acute (9) Anemia: Qualifiers: Anemia type: unspecified type Qualified Code(s): D64.9 - Anemia, unspecified Code(s): D64.9 - Anemia, unspecified Status: Acute (10) Hematemesis: Qualifiers: Nausea presence: with nausea Qualified Code(s): K92.0 - Hematemesis Code(s): K92.0 - Hematemesis Status: Acute (11) Hepatomegaly: Code(s): R16.0 - Hepatomegaly, not elsewhere classified Status: Acute Plan This is a very pleasant 27-year-old female with a longstanding history of heavy alcohol abuse, gastritis, reflux esophagitis, hepatomegaly, marijuana abuse, vaping abuse with nicotine. Patient presented with complaints of cough chills and nausea diarrhea and abdominal pain. She is found to have severe sepsis and pneumonia. Patient doing well on 2nd day of admission 11/15/2023. She episode of bloody vomiting which was very large with clots mixed in. Denies any bowel movements on the . The patient had tachycardia immediately afterwards which resolved. She was anxious during that episode. Hemoglobin is stable in the 9's. She has been started on normal saline at 150 cc/hour, bolus with 80 mg IV x1 Protonix with 8 milligrams/hour Protonix infusion to follow. She was bolused with 50 mcg of octreotide with 50 micrograms/hour to follow. The patient will remain in ICU under the care of admissions consultant. Discussion held with sepsis and Dr. Sanchez with GI. Patient will be made NPO. Lovenox discontinue. Continue trending hemoglobin. If patient has further episodes or becomes unstable then another call to Dr. Sanchez's warranted for possible emergent intervention. November 15 update: Hemoglobin 4.9 last night. Had multiple episodes of bloody emesis. Received 2 units PRBC and hemoglobin now 8.6. She was taken for urgent EGD by Dr. Sanchez gastroenterology which did not demonstrate esophagitis or varices or gastritis and moderate Miranda Denton tear at the GE junction with stigmata of bleeding, 2 resolution clips replaced. Old blood was seen in the fundus. Patient is doing well postop. Repeat CBC at 3:00 p.m.. Okay to transfer out of ICU if hemoglobin is stable, no further episodes of bleeding, and okay with admissions consultant. INR 1.1. Sodium mild low at 145. Serum creatinine 0.4. Phosphorus low at 1.6. Being replaced alongside fluid resuscitation. Continue cefepime metronidazole. Continue Protonix. Continue thiamine, Librium 25 mg p.o. q.day, CIWA protocol. Octreotide drip discontinued ----- Extensive counseling on
--- NOTE | 2023-11-16 14:04 | WPDINTPN ---
Progress Note: A&P Assessment and Plan (1) Miranda-Denton tear: Code(s): K22.6 - Gastro-esophageal laceration-hemorrhage syndrome Status: Acute Assessment and Plan: 11/15/2023: Patient had hematemesis, dropped hemoglobin to 4.9, received 2 units of packed RBCs -11/16/2023 EGD was done teacher early childhood development, showed Miranda-Denton stable status post 2 resolution clips. Intraluminal gastric blood. -patient has been started on full liquid diet per GI -appreciate GI following -octreotide has been discontinued by GI -continue Protonix infusion for now per GI -monitor hemoglobin (2) Acute blood loss anemia: Code(s): D62 - Acute posthemorrhagic anemia Status: Acute Assessment and Plan: As above (3) Severe sepsis: Code(s): A41.9 - Sepsis, unspecified organism; R65.20 - Severe sepsis without septic shock Status: Acute Assessment and Plan: Patient presented the outside hospital with upper respiratory tract symptoms including cough, chills. She also complained abdominal pain, and vomiting -patient was found to be hypothermic the outside hospital along with severe lactic acid level of 10.9, leukocytosis, tachycardia -likely source but possibly lungs/aspiration pneumonia night is/pneumonia -blood pressures and temperature is a within normal limits -UA was NOT reflective of a UTI, -chest x-ray and CT scan of the abdomen and pelvis as under: Likely pneumonia -11/12: Preliminary blood cultures are negative x2 -continue cefepime and Flagyl (11/13) -11/15: DC vancomycin -leukocytosis has resolved 11/12: CT scan of the abdomen and pelvis showed hepatomegaly with fatty infiltration of the liver, minimal fullness of the renal pelvis bilaterally, no definite stone seen. Ground-glass appearance in both lower more on the left side which may indicate dependent atelectatic changes versus early pneumonia. Clinical correlation advised. No evidence of appendicitis, diverticulitis or intestinal obstruction. 11/12: Chest x-ray shows right central line with tip in the right atrium, no acute cardiopulmonary pathology (4) Pneumonia: Qualifiers: Pneumonia type: aspiration pneumonia Aspiration pneumonia type: due to vomit Laterality: bilateral Lung location: lower lobe of lung Qualified Code(s): J69.0 - Pneumonitis due to inhalation of food and vomit Code(s): J18.9 - Pneumonia, unspecified organism Status: Acute Assessment and Plan: Pneumonia seen on CT scan of the abdomen and pelvis in the lower lobes -if patient does not improve will obtain a CT scan of the chest -continue antibiotics as above -11/13: Chest x-ray clear this morning (5) Electrolyte imbalance: Code(s): E87.8 - Other disorders of electrolyte and fluid balance, not elsewhere classified Status: Acute Assessment and Plan: Replace phosphorus (6) Metabolic acidosis: Code(s): E87.20 - Acidosis, unspecified Status: Acute Assessment and Plan: Metabolic acidosis likely related to lactic acidosis and alcoholic ketoacidosis -lactic acidosis has resolved -patient started on bicarb infusion -Resolved (7) Acute alcohol intoxication delirium with moderate or severe use disorder: Code(s): F10.221 - Alcohol dependence with intoxication delirium Status: Acute Assessment and Plan: Patient with history of alcohol dependence, drinks a 5th of vodka daily and sometimes half of a 5th of vodka daily -LFTs were elevated on admission, -CT scan of the abdomen and pelvis showed hepatomegaly with fatty infiltration of the liver -LFTs have normalized -continue to monitor (8) Abdominal pain: Qualifiers: Abdominal location: lower abdomen, unspecified Qualified Code(s): R10.30 - Lower abdominal pain, unspecified Code(s): R10.9 - Unspecified abdominal pain Status: Inactive Assessment and Plan: Abdominal pain could be related to metabolic acidosis, Mall
[2023-11-16 14:51] LABS: Basophils Absolute Auto 0.1 K/mm3 (0.0-0.1); Basophils Percent Auto 0.8 % (0.2-1.2); Eosinophils Absolute Auto 0.1 K/mm3 (0-0.3); Eosinophils Percent Auto 1.4 % (0-4.4); Hematocrit 23.2 % (37.0-47.0); Hemoglobin 7.9 g/dL (12.0-15.0); Immature Granulocyte Absolute 0.02 K/mm3 (0.00-0.031); Immature Granulocyte Percent A 0.3 % (0-0.5); Immature Platelet Fraction Pct 5.8 % (0.9-11.2); Lymphocytes Absolute Auto 1.49 K/mm3 (0.9-3.2); Lymphocytes Percent Auto 23.4 % (18.3-44.2); Mean Corpuscular HGB Conc 34.1 g/dl (32-36); Mean Corpuscular Hemoglobin 32.2 pg (26-34); Mean Corpuscular Volume 94.7 fl (80-100); Mean Platelet Volume 10.2 fl (7.4-10.4); Monocytes Absolute Auto 0.5 K/mm3 (0.1-0.6); Monocytes Percent Auto 7.5 % (2.6-8.5); Neutrophils Absolute Auto 4.3 K/mm3 (1.3-6.7); Neutrophils Percent Auto 66.6 % (45.5-73.1); Platelet Count Result 114 k/mm3 (150-375); Red Blood Count 2.45 M/mm3 (4.2-5.4); Red Cell Distribution Width 15.7 % (11.5-14.5); White Blood Count 6.4 K/mm3 (4.5-10.0)
[2023-11-16] MEDS: NICOTINE (*PBKC) 21 MG PATCH 1 PATCH TRANSDERM (16:03)
[2023-11-16 16:33] LABS: Glucose Point of Care 114 mg/dl (65-105)
[2023-11-16] MEDS: LORazepam INJ (*CRX) 2 MG/ML VIAL IV PUSH (22:25)
[2023-11-16 22:58] LABS: Hematocrit 23.8 % (37.0-47.0); Hemoglobin 8.3 g/dL (12.0-15.0); Mean Corpuscular HGB Conc 34.9 g/dl (32-36); Mean Corpuscular Hemoglobin 32.7 pg (26-34); Mean Corpuscular Volume 93.7 fl (80-100); Mean Platelet Volume 10.1 fl (7.4-10.4); Platelet Count Result 145 k/mm3 (150-375); Red Blood Count 2.54 M/mm3 (4.2-5.4); Red Cell Distribution Width 15.4 % (11.5-14.5); White Blood Count 7.4 K/mm3 (4.5-10.0)
[2023-11-17] VITALS (13 sets, daily range): BP systolic 105–135; BP diastolic 50–109; PULSE 85–117; RESP 13–35; TEMP 36.7–36.9; O2SAT 97–100
[2023-11-17 00:34] LABS: Glucose Point of Care 115 mg/dl (65-105)
[2023-11-17] MEDS: metroNIDAZOLE 500 MG/ISO 100ML 500 MG/100 ML BAG 100 MG IVPB ×2 (01:48→08:52)
[2023-11-17] MEDS: CEFEPIME 2 GM/NS 50 ML 2 GM/50 ML BAG IVPB ×2 (01:48→08:28)
[2023-11-17] MEDS: CENTRAL LINE FLUSH 10 ML IV PUSH ×3 (06:11→20:47)
[2023-11-17 06:21] LABS: Basophils Percent Auto 0.7 % (0.2-1.2); Eosinophils Absolute Auto 0.1 K/mm3 (0-0.3); Eosinophils Percent Auto 2.1 % (0-4.4); Hematocrit 22.2 % (37.0-47.0); Hemoglobin 7.9 g/dL (12.0-15.0); Immature Granulocyte Absolute 0.04 K/mm3 (0.00-0.031); Immature Granulocyte Percent A 0.7 % (0-0.5); Lymphocytes Absolute Auto 1.57 K/mm3 (0.9-3.2); Mean Corpuscular HGB Conc 35.6 g/dl (32-36); Mean Corpuscular Hemoglobin 33.2 pg (26-34); Mean Corpuscular Volume 93.3 fl (80-100); Mean Platelet Volume 9.9 fl (7.4-10.4); Monocytes Absolute Auto 0.6 K/mm3 (0.1-0.6); Monocytes Percent Auto 9.8 % (2.6-8.5); Neutrophils Absolute Auto 3.5 K/mm3 (1.3-6.7); Neutrophils Percent Auto 59.7 % (45.5-73.1); Platelet Count Result 147 k/mm3 (150-375); Red Blood Count 2.38 M/mm3 (4.2-5.4); Red Cell Distribution Width 15.7 % (11.5-14.5); White Blood Count 5.8 K/mm3 (4.5-10.0)
[2023-11-17 06:43] LABS: INR 1.1; Partial Thromboplastin Time 26.9 Seconds (22.3-36.8); Prothrombin Time 14.6 Seconds (11.1-14.7)
[2023-11-17 06:56] LABS: Alanine Aminotransferase 18 U/L (6-35); Albumin Level 2.8 g/dL (3.5-5.1); Alkaline Phosphatase 49 U/L (38-126); Anion Gap 5 mmol/L (4-12); Aspartate Amino Transferase 41 U/L (14-36); Bilirubin,Total 0.4 mg/dL (0.2-1.3); Blood Urea Nitrogen 4 mg/dL (7-17); Calcium 8.2 mg/dL (8.4-10.2); Carbon Dioxide 29 mmol/L (22-30); Chloride 100 mmol/L (98-107); Estimated CRCL calculation 132 ml/min; Estimated Glomerular Filt Rate > 60; Glucose 115 mg/dL (65-110); Magnesium 1.5 mg/dL (1.6-2.3); Phosphorus 1.8 mg/dL (2.5-4.5); Potassium 2.7 mmol/L (3.4-5.0); Sodium 134 mmol/L (137-145)
[2023-11-17 07:43] LABS: Glucose Point of Care 109 mg/dl (65-105)
[2023-11-17] MEDS: POTASSIUM CHLORIDE 20 MEQ ER TABLET 40 MEQ PO (08:03)
[2023-11-17] MEDS: POTASSIUM PHOS/SODIUM PHOS 250 MG TABLET PO (08:03)
[2023-11-17] MEDS: chlordiazePOXIDE (*CRX) 25 MG CAPSULE PO (08:04)
[2023-11-17] MEDS: ACIDOPHILUS/BULGARICUS CHEWABLE TABLET 1 TABLET PO (08:04)
[2023-11-17] MEDS: THIAMINE HCL 200 MG/2 ML VIAL 100 MG IV PUSH (08:04)
[2023-11-17] MEDS: NICOTINE (*PBKC) 21 MG PATCH 1 PATCH TRANSDERM (08:05)
[2023-11-17] MEDS: MORPHINE SULFATE (*CRX) 2 MG/ML INJ IV PUSH (08:06)
[2023-11-17] MEDS: MAGNESIUM SULFATE 3GM/D5W100ML 3 GM/100 ML BAG IVPB (08:18)
[2023-11-17] MEDS: ONDANSETRON INJ 4 MG/2 ML VIAL IV PUSH ×2 (08:18→17:51)
[2023-11-17] MEDS: KCL 40 MEQ/WATER 100 ML 100 ML 25 ML IVPB (08:20)
[2023-11-17] MEDS: PANTOPRAZOLE SODIUM IV 80 MG in SODIUM CHLORIDE 0.9% IV 500 ML 50 MG IV CONT (09:02)
--- NOTE | 2023-11-17 11:55 | PM.IMPN ---
Progress Note: A&P Assessment and Plan (1) Metabolic acidosis: Code(s): E87.20 - Acidosis, unspecified Status: Acute (2) Electrolyte imbalance: Code(s): E87.8 - Other disorders of electrolyte and fluid balance, not elsewhere classified Status: Acute (3) Pneumonia: Qualifiers: Pneumonia type: aspiration pneumonia Aspiration pneumonia type: due to vomit Laterality: bilateral Lung location: lower lobe of lung Qualified Code(s): J69.0 - Pneumonitis due to inhalation of food and vomit Code(s): J18.9 - Pneumonia, unspecified organism Status: Acute (4) Severe sepsis: Code(s): A41.9 - Sepsis, unspecified organism; R65.20 - Severe sepsis without septic shock Status: Acute (5) Gastritis: Code(s): K29.70 - Gastritis, unspecified, without bleeding Status: Acute (6) Sepsis: Qualifiers: Sepsis type: sepsis due to unspecified organism Sepsis acute organ dysfunction status: without acute organ dysfunction Qualified Code(s): A41.9 - Sepsis, unspecified organism Code(s): A41.9 - Sepsis, unspecified organism Status: Acute (7) Hiatal hernia: Code(s): K44.9 - Diaphragmatic hernia without obstruction or gangrene Status: Acute (8) Reflux esophagitis: Code(s): K21.00 - Gastro-esophageal reflux disease with esophagitis, without bleeding Status: Acute (9) Anemia: Qualifiers: Anemia type: unspecified type Qualified Code(s): D64.9 - Anemia, unspecified Code(s): D64.9 - Anemia, unspecified Status: Acute (10) Hematemesis: Qualifiers: Nausea presence: with nausea Qualified Code(s): K92.0 - Hematemesis Code(s): K92.0 - Hematemesis Status: Acute (11) Hepatomegaly: Code(s): R16.0 - Hepatomegaly, not elsewhere classified Status: Acute Plan This is a very pleasant 27-year-old female with a longstanding history of heavy alcohol abuse, gastritis, reflux esophagitis, hepatomegaly, marijuana abuse, vaping abuse with nicotine. Patient presented with complaints of cough chills and nausea diarrhea and abdominal pain. She is found to have severe sepsis and pneumonia. Patient doing well on 2nd day of admission 11/15/2023. She episode of bloody vomiting which was very large with clots mixed in. Denies any bowel movements on the . The patient had tachycardia immediately afterwards which resolved. She was anxious during that episode. Hemoglobin is stable in the 9's. She has been started on normal saline at 150 cc/hour, bolus with 80 mg IV x1 Protonix with 8 milligrams/hour Protonix infusion to follow. She was bolused with 50 mcg of octreotide with 50 micrograms/hour to follow. The patient will remain in ICU under the care of vp [employer]. Discussion held with sepsis and Dr. Sanchez with GI. Patient will be made NPO. Lovenox discontinue. Continue trending hemoglobin. If patient has further episodes or becomes unstable then another call to Dr. Sanchez's warranted for possible emergent intervention. November 15 update: Hemoglobin 4.9 last night. Had multiple episodes of bloody emesis. Received 2 units PRBC and hemoglobin now 8.6. She was taken for urgent EGD by Dr. Sanchez gastroenterology which did not demonstrate esophagitis or varices or gastritis and moderate Miranda Denton tear at the GE junction with stigmata of bleeding, 2 resolution clips replaced. Old blood was seen in the fundus. Patient is doing well postop. Repeat CBC at 3:00 p.m.. Okay to transfer out of ICU if hemoglobin is stable, no further episodes of bleeding, and okay with v[employer]. INR 1.1. Sodium mild low at 145. Serum creatinine 0.4. Phosphorus low at 1.6. Being replaced alongside fluid resuscitation. Continue cefepime metronidazole. Continue Protonix. Continue thiamine, Librium 25 mg p.o. q.day, CIWA protocol. Octreotide drip discontinued November 16: She is stable hemody
--- NOTE | 2023-11-17 12:03 | WPDINTPN ---
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 Intraluminal gastric blood. -patient has been started on full liquid diet per GI -appreciate GI following -octreotide has been discontinued by GI -continue Protonix infusion for now per GI, will discuss with GI regarding Protonix neck is infusion versus IV Protonix -monitor hemoglobin (2) Acute blood loss anemia: Code(s): D62 - Acute posthemorrhagic anemia Status: Acute Assessment and Plan: Hemoglobin has been stable after the patient receiving total 3 units of packed RBCs Continue to monitor (3) Severe sepsis: Code(s): A41.9 - Sepsis, unspecified organism; R65.20 - Severe sepsis without septic shock Status: Acute Assessment and Plan: Patient presented the outside hospital with upper respiratory tract symptoms including cough, chills. She also complained abdominal pain, and vomiting -patient was found to be hypothermic the outside hospital along with severe lactic acid level of 10.9, leukocytosis, tachycardia -likely source but possibly lungs/aspiration pneumonia night is/pneumonia -blood pressures and temperature is a within normal limits -UA was NOT reflective of a UTI, -chest x-ray and CT scan of the abdomen and pelvis as under: Likely pneumonia -11/12: Preliminary blood cultures are negative x2 -continue cefepime and Flagyl (11/13) for total of 5 days -11/15: DC vancomycin -leukocytosis has resolved 11/12: CT scan of the abdomen and pelvis showed hepatomegaly with fatty infiltration of the liver, minimal fullness of the renal pelvis bilaterally, no definite stone seen. Ground-glass appearance in both lower more on the left side which may indicate dependent atelectatic changes versus early pneumonia. Clinical correlation advised. No evidence of appendicitis, diverticulitis or intestinal obstruction. 11/12: Chest x-ray shows right central line with tip in the right atrium, no acute cardiopulmonary pathology (4) Pneumonia: Qualifiers: Pneumonia type: aspiration pneumonia Aspiration pneumonia type: due to vomit Laterality: bilateral Lung location: lower lobe of lung Qualified Code(s): J69.0 - Pneumonitis due to inhalation of food and vomit Code(s): J18.9 - Pneumonia, unspecified organism Status: Acute Assessment and Plan: Pneumonia seen on CT scan of the abdomen and pelvis in the lower lobes -if patient does not improve will obtain a CT scan of the chest -continue antibiotics as above -11/13: Chest x-ray clear this morning (5) Electrolyte imbalance: Code(s): E87.8 - Other disorders of electrolyte and fluid balance, not elsewhere classified Status: Acute Assessment and Plan: Replace potassium, magnesium, phosphorus (6) Metabolic acidosis: Code(s): E87.20 - Acidosis, unspecified Status: Acute Assessment and Plan: Metabolic acidosis likely related to lactic acidosis and alcoholic ketoacidosis -lactic acidosis has resolved -patient started on bicarb infusion -Resolved (7) Acute alcohol intoxication delirium with moderate or severe use disorder: Code(s): F10.221 - Alcohol dependence with intoxication delirium Status: Acute Assessment and Plan: Patient with history of alcohol dependence, drinks a 5th of vodka daily and sometimes half of a 5th of vodka daily -LFTs were elevated on admission, -CT scan of the abdomen and pelvis showed hepatomegaly with fatty infiltration of the liver -LFTs have normalized -continue to monitor -counseled on quitting alcohol and will have care coordination help her with ETOH rehab, discussed with care
[2023-11-17] MEDS: ACETAMINOPHEN 500 MG TABLET PO (12:52)
[2023-11-17 15:02] LABS: Anion Gap 7 mmol/L (4-12); Calcium 8.5 mg/dL (8.4-10.2); Carbon Dioxide 27 mmol/L (22-30); Chloride 99 mmol/L (98-107); Estimated CRCL calculation 132 ml/min; Estimated Glomerular Filt Rate > 60; Glucose 96 mg/dL (65-110); Magnesium 2.4 mg/dL (1.6-2.3); Potassium 4.2 mmol/L (3.4-5.0); Sodium 133 mmol/L (137-145)
[2023-11-17 15:14] LABS: Blood Urea Nitrogen < 2 mg/dL (7-17)
[2023-11-17 15:23] LABS: Osmolality, Urine 477 mOsm/kg (50-1200)
[2023-11-17] MEDS: LORazepam INJ (*CRX) 2 MG/ML VIAL 1 MG IV PUSH (17:51)
--- NOTE | 2023-11-17 18:44 | WPDGIPROGNO ---
Progress Note: A&P Assessment and Plan (1) Miranda-Denton tear: Code(s): K22.6 - Gastro-esophageal laceration-hemorrhage syndrome Status: Acute Assessment and Plan: cause of UGIB treated with clips yesterday, no more bleeding hgb stable after blood transfusion protonix bid ok to advance diet (2) Acute blood loss anemia: Code(s): D62 - Acute posthemorrhagic anemia Status: Acute Assessment and Plan: s/p transfusion no more gib (3) Melena: Code(s): K92.1 - Melena Status: Acute (4) Hepatomegaly: Code(s): R16.0 - Hepatomegaly, not elsewhere classified Status: Acute (5) Metabolic acidosis: Code(s): E87.20 - Acidosis, unspecified Status: Acute Assessment and Plan: resolved (6) Alcoholic hepatitis: Qualifiers: Ascites presence: without ascites Qualified Code(s): K70.10 - Alcoholic hepatitis without ascites Code(s): K70.10 - Alcoholic hepatitis without ascites Status: Acute Assessment and Plan: improved she says that won't drink anymore medical support, thiamine Subjective Date/time seen: 11/17/23 18:44 Interval history: no more n/v and tolerating diet, no more bleeding feeling much better Review of Systems Review of Systems: All systems reviewed & are unremarkable except as noted in HPI and below Exam Const: General: comfortable and no acute distress HENMT: Face/Nose/Sinus: Normal nares present Eyes: General: appearance normal, both eyes and all related structures Neck: Neck: no JVD Resp: Auscultation: clear to auscultation bilaterally Cardio: Rate: regular rate Rhythm: regular rhythm GI: Inspection: non-distended GI Palp: Yes Soft to palpation and No Tenderness to palpation present (GI) Auscultation: normal bowel sounds Skin: General skin exam: normal color Neuro: General: gait normal Speech: normal speech Extrem: General: normal to inspection Psych: Mental Status: mental status grossly normal Objective Data Vital Signs Vital Signs: Vital Signs - 24 hr 11/16/23 19:46 11/16/23 20:00 11/16/23 20:00 Temperature 98.5 F Pulse Rate 91 Pulse Rate [Monitor] 91 Respiratory Rate Blood Pressure Pulse Oximetry Oxygen Delivery 11/16/23 20:00 11/16/23 20:00 11/16/23 22:00 Temperature Pulse Rate 91 91 100 Pulse Rate [Monitor] Respiratory Rate 16 16 30 H Blood Pressure 129/106 H 121/79 Pulse Oximetry 100 100 100 Oxygen Delivery Room Air 11/16/23 22:00 11/17/23 00:00 11/17/23 00:00 Temperature Pulse Rate 100 100 100 Pulse Rate [Monitor] Respiratory Rate 16 Blood Pressure 120/78 Pulse Oximetry Oxygen Delivery 11/16/23 22:20 11/17/23 02:15 11/17/23 02:00 Temperature Pulse Rate 92 92 Pulse Rate [Monitor] 100 Respiratory Rate 32 H Blood Pressure 105/78 Pulse Oximetry 99 Oxygen Delivery 11/17/23 00:00 11/17/23 00:00 11/17/23 04:00 Temperature Pulse Rate 100 98 Pulse Rate [Monitor] 100 Respiratory Rate 16 Blood Pressure Pulse Oximetry 100 Oxygen Delivery Room Air 11/17/23 04:00 11/17/23 04:00 11/17/23 04:00 Temperature 98.5 F Pulse Rate 98 98 Pulse Rate [Monitor] 98 Respiratory Rate 33 H 33 H Blood Pressure 126/95 H Pulse Oximetry 97 97 Oxygen Delivery Room Air 11/17/23 06:00 11/17/23 06:00 11/17/23 08:00 Temperature Pulse Rate 85 85 Pulse Rate [Monitor] 95 Respiratory Rate 35 H Blood Pressure 122/90 123/109 H Pulse Oximetry 100 Oxygen Delivery 11/17/23 08:00 11/17/23 08:00 11/17/23 08:00 Temperature 98.4 F Pulse Rate 95 95 Pulse Rate [Monitor] Respiratory Rate 19 Blood Pressure 123/109 H Pulse Oximetry 100 Oxygen Delivery Room Air 11/17/23 10:00 11/17/23 10:00 11/17/23 12:00 Temperature Pulse Rate 107 H 93 Pulse Rate [Monitor] Respiratory Rate 23 H Blood Pressure 135/88 124/90 Pulse Oxime
[2023-11-17] MEDS: AMOXICILLIN/CLAVULANATE K 875-125 MG TAB 1 TABLET PO (20:46)
[2023-11-17] MEDS: PANTOPRAZOLE SODIUM IV 40 MG VIAL IV PUSH (20:47)
[2023-11-17] MEDS: traMADol HCL (*CRX) 50 MG TABLET PO (23:20)
[2023-11-18] VITALS: PULSE 80
[2023-11-18 04:00] VITALS: PULSE 87
[2023-11-18 05:00] VITALS: BP 130/101; PULSE 87; RESP 14; TEMP 36.6; O2SAT 100
[2023-11-18] MEDS: CENTRAL LINE FLUSH 10 ML IV PUSH (05:15)
[2023-11-18] MEDS: traMADol HCL (*CRX) 50 MG TABLET PO (05:25)
[2023-11-18 05:48] LABS: Basophils Absolute Auto 0.1 K/mm3 (0.0-0.1); Basophils Percent Auto 0.7 % (0.2-1.2); Eosinophils Absolute Auto 0.2 K/mm3 (0-0.3); Eosinophils Percent Auto 2.2 % (0-4.4); Hematocrit 23.5 % (37.0-47.0); Hemoglobin 8.2 g/dL (12.0-15.0); Immature Granulocyte Absolute 0.06 K/mm3 (0.00-0.031); Immature Granulocyte Percent A 0.8 % (0-0.5); Lymphocytes Absolute Auto 2.66 K/mm3 (0.9-3.2); Lymphocytes Percent Auto 37.3 % (18.3-44.2); Mean Corpuscular HGB Conc 34.9 g/dl (32-36); Mean Corpuscular Hemoglobin 32.9 pg (26-34); Mean Corpuscular Volume 94.4 fl (80-100); Mean Platelet Volume 9.8 fl (7.4-10.4); Monocytes Percent Auto 13.3 % (2.6-8.5); Neutrophils Absolute Auto 3.3 K/mm3 (1.3-6.7); Neutrophils Percent Auto 45.7 % (45.5-73.1); Platelet Count Result 214 k/mm3 (150-375); Red Blood Count 2.49 M/mm3 (4.2-5.4); Red Cell Distribution Width 15.5 % (11.5-14.5); White Blood Count 7.1 K/mm3 (4.5-10.0)
[2023-11-18 06:02] LABS: Alanine Aminotransferase 24 U/L (6-35); Albumin Level 3.2 g/dL (3.5-5.1); Alkaline Phosphatase 57 U/L (38-126); Anion Gap 6 mmol/L (4-12); Aspartate Amino Transferase 66 U/L (14-36); Bilirubin,Total 0.4 mg/dL (0.2-1.3); Blood Urea Nitrogen 3 mg/dL (7-17); Calcium 8.8 mg/dL (8.4-10.2); Carbon Dioxide 28 mmol/L (22-30); Chloride 100 mmol/L (98-107); Estimated CRCL calculation 132 ml/min; Estimated Glomerular Filt Rate > 60; Glucose 87 mg/dL (65-110); Magnesium 1.9 mg/dL (1.6-2.3); Phosphorus 2.9 mg/dL (2.5-4.5); Potassium 3.6 mmol/L (3.4-5.0); Sodium 134 mmol/L (137-145)
[2023-11-18] MEDS: ONDANSETRON INJ 4 MG/2 ML VIAL IV PUSH (07:57)
[2023-11-18] MEDS: THIAMINE HCL 200 MG/2 ML VIAL 100 MG IV PUSH (07:58)
[2023-11-18] MEDS: ACIDOPHILUS/BULGARICUS CHEWABLE TABLET 1 TABLET PO (07:59)
[2023-11-18] MEDS: AMOXICILLIN/CLAVULANATE K 875-125 MG TAB 1 TABLET PO (07:59)
[2023-11-18] MEDS: NICOTINE (*PBKC) 21 MG PATCH 1 PATCH TRANSDERM (07:59)
[2023-11-18 08:00] VITALS: BP 123/86; PULSE 99; RESP 21; TEMP 36.5; O2SAT 98
[2023-11-18] MEDS: PANTOPRAZOLE SODIUM IV 40 MG VIAL IV PUSH (08:00)
--- NOTE | 2023-11-18 09:35 | PM.DS ---
DS: Admitting Diagnosis Discharge Date November 18, 2023 Admitting Diagnosis Nausea vomiting diarrhea abdominal pain DS: Discharge Diagnosis Discharge Diagnosis (1) Miranda-Denton tear: Code(s): K22.6 - Gastro-esophageal laceration-hemorrhage syndrome Status: Acute (2) Acute blood loss anemia: Code(s): D62 - Acute posthemorrhagic anemia Status: Acute (3) Melena: Code(s): K92.1 - Melena Status: Acute (4) Severe sepsis: Code(s): A41.9 - Sepsis, unspecified organism; R65.20 - Severe sepsis without septic shock Status: Acute (5) Pneumonia: Qualifiers: Pneumonia type: aspiration pneumonia Aspiration pneumonia type: due to vomit Laterality: bilateral Lung location: lower lobe of lung Qualified Code(s): J69.0 - Pneumonitis due to inhalation of food and vomit Code(s): J18.9 - Pneumonia, unspecified organism Status: Acute (6) Alcohol use disorder: Code(s): F10.90 - Alcohol use, unspecified, uncomplicated Status: Inactive DS: Summary Hospital Course Hospital Course: This is a very pleasant 27-year-old female with a longstanding history of heavy alcohol abuse, gastritis, reflux esophagitis, hepatomegaly, marijuana abuse, vaping abuse with nicotine. Patient presented with complaints of cough chills and nausea diarrhea and abdominal pain. She is found to have severe sepsis and pneumonia. Patient doing well on 2nd day of admission 11/15/2023. She episode of bloody vomiting which was very large with clots mixed in. Denies any bowel movements on the . The patient had tachycardia immediately afterwards which resolved. She was anxious during that episode. Hemoglobin is stable in the 9's. She has been started on normal saline at 150 cc/hour, bolus with 80 mg IV x1 Protonix with 8 milligrams/hour Protonix infusion to follow. She was bolused with 50 mcg of octreotide with 50 micrograms/hour to follow. The patient will remain in ICU under the care of molding supervisor. Discussion held with sepsis and Dr. Sanchez with GI. Patient will be made NPO. Lovenox discontinue. Continue trending hemoglobin. If patient has further episodes or becomes unstable then another call to Dr. Sanchez's warranted for possible emergent intervention. November 15 update: Hemoglobin 4.9 last night. Had multiple episodes of bloody emesis. Received 2 units PRBC and hemoglobin now 8.6. She was taken for urgent EGD by Dr. Sanchez gastroenterology which did not demonstrate esophagitis or varices or gastritis and moderate Miranda Denton tear at the GE junction with stigmata of bleeding, 2 resolution clips replaced. Old blood was seen in the fundus. Patient is doing well postop. Repeat CBC at 3:00 p.m.. Okay to transfer out of ICU if hemoglobin is stable, no further episodes of bleeding, and okay with molding supervisor. INR 1.1. Sodium mild low at 145. Serum creatinine 0.4. Phosphorus low at 1.6. Being replaced alongside fluid resuscitation. Continue cefepime metronidazole. Continue Protonix. Continue thiamine, Librium 25 mg p.o. q.day, CIWA protocol. Octreotide drip discontinued November 16: She is stable hemodynamically. No further episodes of emesis. Hemoglobin is stable. Electrolyte derangements are being replaced. Recheck BMP and magnesium at 2:00 p.m.. Transfer to medical floor with telemetry. Keep telemetry for electrolyte derangements. Continue cefepime and metronidazole, start Augmentin. Her leukocytosis is improved. No cough. Continue thiamine and CIWA protocol. Currently on a full liquid diet and Protonix GTT. Gastroenterology recommendations to follow. November 17: Hemoglobin stable. Patient is now having brown and formed stools. No nausea or vomiting or abdominal pain. Tolerating diet. Follow-up with PCP and GI advised. Patient again educated about the importance of alcohol cessation. She agrees. Care coordination is helping her to arrange rehab. Yarely
== END 2023-11-18 12:30 | disposition home or self-care (01) | DRG 720 ==
PROVIDERS: Internal Medicine; Internal Medicine Gastroenterology; Admitting Provider Internal Medicine; PCP Hospitalist; Visit Provider General Practice
PROC: 0DJ08ZZ Inspection of Upper Intestinal Tract, Via Natural or Artificial Opening Endoscopic (ICD-10-PCS; CPT 43235; principal; 2023-11-16 07:30)
DX: A41.9 Sepsis, unspecified organism (principal); R65.20 Severe sepsis without septic shock; J69.0 Pneumonitis due to inhalation of food and vomit; J18.9 Pneumonia, unspecified organism; K92.1 Melena; D62 Acute posthemorrhagic anemia; K22.6 Gastro-esophageal laceration-hemorrhage syndrome; K92.0 Hematemesis; F10.221 Alcohol dependence with intoxication delirium; E87.29 Other acidosis; E87.21 Acute metabolic acidosis; R00.0 Tachycardia, unspecified; Y90.0 Blood alcohol level of less than 20 mg/100 ml; F12.10 Cannabis abuse, uncomplicated; R68.0 Hypothermia, not associated with low environmental temperature; E87.8 Other disorders of electrolyte and fluid balance, not elsewhere classified; R16.0 Hepatomegaly, not elsewhere classified; F43.10 Post-traumatic stress disorder, unspecified; F41.9 Anxiety disorder, unspecified; F32.A Depression, unspecified; K44.9 Diaphragmatic hernia without obstruction or gangrene; K86.0 Alcohol-induced chronic pancreatitis; M41.9 Scoliosis, unspecified; F17.290 Nicotine dependence, other tobacco product, uncomplicated
CPT/HCPCS: 36415; 36430; 71045; 80048; 80053; 80202; 80307; 81050; 82565; 82570; 82607; 82728; 82746; 82948; 83540; 83550; 83605; 83735; 83935; 84100; 84156; 84300; 84540; 85014; 85018; 85025; 85027; 85055; 85380; 85384; 85610; 85730; 86850; 86900; 86901; 86923; 87641; A9270; J0171; J0295; J0692; J1650; J1836; J2060; J2270; J2354; J2405; J2470; J2704; J2765; J3370; J3411; J3475; J3480; J7030; J7040; J7050; J7060; J7070; J7120; P9016